=== PATIENT | female | born 1950 | race Caucasian/White ===

== ENCOUNTER 2020-09-20 10:01 | Outpatient (REF) | payer MEDICARE, SELFPAY ==
--- NOTE | ~2020-09-20 | CT_ITS ---
EXAMINATION: CT CHEST WITHOUT CONTRAST CLINICAL INFORMATION: Follow-up pulmonary nodules COMPARISON: Previous chest CT scans most recent August 2019 TECHNIQUE: Multidetector volumetric CT imaging of the chest was done. Axial MIP volume rendering provided. Sagittal and coronal reformatted images were obtained. This CT examination was performed using dose optimization techniques as appropriate, variously including the following: *Automated exposure control *Adjustment of mA and/or kV according to patient size (this includes techniques or standardized protocols for targeted exams where dose is matched to indication/reason for exam; i.e. extremities or head) *Use of iterative reconstruction technique DLP: 136 mGy-cm FINDINGS: UNSTACKER: LUNGS: The small pulmonary nodules are stable. No new pulmonary nodule is seen. The largest pulmonary nodule measures 4 mm in the right middle lobe. MEDIASTINUM: There is mild coronary artery calcification. The thoracic aorta is tortuous. The mediastinum is otherwise normal. PLEURA: There is no pleural effusion. No pleural mass or thickening. AXILLA: No lymphadenopathy. UPPER ABDOMEN: The left kidney is atrophic. OSSEOUS STRUCTURES: There is scoliosis and degenerative change of the spine. CT/CT chest wo con IMPRESSION: Stable small pulmonary nodules.
== END 2020-09-20 10:02 | disposition home or self-care (01) ==
LOC: HO.CT 10:01
PROVIDERS: Visit Provider Internal Medicine Medical Oncology
DX: R91.8 Other nonspecific abnormal finding of lung field (principal)
CPT/HCPCS: 71250

== ENCOUNTER 2020-10-05 09:36 | Outpatient (REF) | payer MEDICARE, SELFPAY ==
[2020-10-05 11:07] LABS: Anion Gap 10 (12-20); Blood Urea Nitrogen 24 mg/dL (9-16); Calcium 9.3 mg/dL (8.4-10.2); Carbon Dioxide 29 mmol/L (22-29); Chloride 104 mmol/L (96-108); Estimated Glomerular Filt Rate 38; Potassium 3.5 mmol/L (3.3-5.1); Sodium 139 mmol/L (135-145)
[2020-10-05 13:36] LABS: Renal w Reflex Lab Use Only Order verified
[2020-10-05 13:45] LABS: Phosphorus 4.3 mg/dL (2.7-4.5)
== END 2020-10-05 09:37 | disposition home or self-care (01) ==
LOC: HO.10HDL 09:36
PROVIDERS: Visit Provider Internal Medicine Nephrology
DX: I12.9 Hypertensive chronic kidney disease with stage 1 through stage 4 chronic kidney disease, or unspecified chronic kidney disease (principal); N18.30 Chronic kidney disease, stage 3 unspecified
CPT/HCPCS: 36415; 80051; 82310; 82565; 84100; 84520

== ENCOUNTER 2021-05-07 12:46 | Outpatient (REF) | payer MEDICARE, SELFPAY ==
--- NOTE | ~2021-05-07 | CT_ITS ---
EXAMINATION: CT CHEST WITHOUT CONTRAST CLINICAL INFORMATION: Follow-up pulmonary nodules. History of right upper arm melanoma. COMPARISON: Previous chest CT scans most recent September 2020 going back to November 2018 TECHNIQUE: Multidetector volumetric CT imaging of the chest was done. Axial MIP volume rendering provided. Sagittal and coronal reformatted images were obtained. This CT examination was performed using dose optimization techniques as appropriate, variously including the following: *Automated exposure control *Adjustment of mA and/or kV according to patient size (this includes techniques or standardized protocols for targeted exams where dose is matched to indication/reason for exam; i.e. extremities or head) *Use of iterative reconstruction technique DLP: 137 mGy-cm FINDINGS: LUNGS: The small pulmonary nodules are stable. Largest pulmonary nodule measures 5 mm in the right middle lobe axial image 316 series 9. No new pulmonary nodule is seen. MEDIASTINUM: The thoracic aorta is tortuous. There is mild coronary artery calcification. The mediastinum is otherwise normal. PLEURA: There is no pleural effusion. No pleural mass or thickening. AXILLA: No lymphadenopathy. UPPER ABDOMEN: The left kidney appears atrophic. There is a small calcification in the upper pole of the left kidney probably representing a stone. There may be a small gallstone in the gallbladder. OSSEOUS STRUCTURES: There is mild curvature of the upper thoracic spine to the left. There are degenerative changes of the spine. CT/CT chest wo con IMPRESSION: Stable small pulmonary nodules.
== END 2021-05-07 12:47 | disposition home or self-care (01) ==
LOC: HO.CT 12:46
PROVIDERS: Visit Provider Internal Medicine Medical Oncology
DX: R91.8 Other nonspecific abnormal finding of lung field (principal)
CPT/HCPCS: 71250

== ENCOUNTER 2021-05-16 10:35 | Outpatient (REF) | payer MEDICARE, SELFPAY ==
[2021-05-16 14:08] LABS: Hemoglobin 12.9 g/dl (12.0-16.0); Mean Corpuscular HGB Conc 33.9 g/dl (31.0-35.0); Mean Corpuscular Hemoglobin 28.7 pg (27.0-33.0); Mean Corpuscular Volume 84.4 fL (80-98); Mean Platelet Volume 10.1 fL (9.4-12.3); Platelet Count 184 X10*3/uL (160-400); Red Cell Distribution Width 12.2 % (11.0-16.0); White Blood Count 6.6 X10*3/uL (4.8-10.8)
[2021-05-16 14:35] LABS: Anion Gap 12 (12-20); Blood Urea Nitrogen 23 mg/dL (9-16); Calcium 9.6 mg/dL (8.4-10.2); Carbon Dioxide 27 mmol/L (22-29); Chloride 104 mmol/L (96-108); Estimated Glomerular Filt Rate 31; Potassium 3.8 mmol/L (3.3-5.1); Sodium 139 mmol/L (135-145)
[2021-05-17 16:01] LABS: Calcium (PTHI) 9.9 mg/dL (8.6-10.4); PTHI 29 pg/mL (14-64)
== END 2021-05-16 10:36 | disposition home or self-care (01) ==
LOC: HO.10HDL 10:35
PROVIDERS: Visit Provider Internal Medicine Nephrology
DX: N18.31 Chronic kidney disease, stage 3a (principal)
CPT/HCPCS: 36415; 80051; 82310; 82565; 83970; 84520; 85027

== ENCOUNTER 2021-06-04 16:10 | Outpatient (REF) | payer MEDICARE, SELFPAY ==
--- NOTE | ~2021-06-04 | US_ITS ---
EXAMINATION: US RETROPERITONEAL LIMITED (RENAL ONLY) CLINICAL INFORMATION: CKD stage III. COMPARISON: MRI abdomen 12/16/2018. TECHNIQUE: Real-time imaging of the kidneys. FINDINGS: RIGHT KIDNEY: 10.8 x 4.8 x 5.4 cm (SAG x AP x TRV). The kidney is normal in size, contour, and echogenicity. Renal cortical thickness is normal. No focal parenchymal lesions or hydronephrosis. There is echogenic stone upper midpole measuring 0.5 x 0.4 x 0.8 seen. No caliectasis or hydronephrosis. LEFT KIDNEY: 7.2 x 4.3 x 3.6 cm (SAG x AP x TRV). The kidney is decreased in size and contour. Likely atrophy. Renal cortical thickness is normal. No calculi or focal parenchymal lesions. No hydronephrosis. US/US renal BI IMPRESSION: Mildly atrophic left kidney with decreased size. Small echogenic stone upper/mid pole right kidney without caliectasis or hydronephrosis.
== END 2021-06-04 16:11 | disposition home or self-care (01) ==
LOC: HO.US 16:10
PROVIDERS: PCP Internal Medicine; Visit Provider Internal Medicine Nephrology
DX: N18.31 Chronic kidney disease, stage 3a (principal)
CPT/HCPCS: 76775

== ENCOUNTER 2022-03-03 13:55 | Outpatient (REF) | payer MEDICARE, SELFPAY | END 2022-03-03 13:56 | disposition home or self-care (01) | LOC: HO.LNP 13:55 | PROVIDERS: Visit Provider Nurse Practitioner Family | DX: N39.41 Urge incontinence (principal) | CPT/HCPCS: 87086 ==

== ENCOUNTER 2022-06-04 02:20 | Inpatient (IN) | payer MEDICARE, SELFPAY ==
[2022-06-04] VITALS (10 sets, daily range): BP systolic 130–180; BP diastolic 77–102; PULSE 73–115; RESP 11–20; TEMP 36.7–38.2; O2SAT 95–100; BMI 24.0
--- NOTE | 2022-06-04 | ECG_ITS ---
Test Reason : fall Blood Pressure : / mmHG Vent. Rate : 133 BPM Atrial Rate : 000 BPM P-R Int : 000 ms QRS Dur : 078 ms QT Int : 168 ms P-R-T Axes : 000 005 -88 degrees QTc Int : 250 ms Atrial fibrillation with rapid ventricular response Nonspecific ST and T wave abnormality Abnormal ECG When compared with ECG of 13-FEB-2010 07:33, Atrial fibrillation has replaced Sinus rhythm Vent. rate has increased BY 77 BPM Non-specific change in ST segment in Inferior leads Nonspecific T wave abnormality now evident in Anterolateral leads Referred By: Generic ED Physician Electronically Signed By:PATRICK BROWN MD
--- NOTE | ~2022-06-04 | FL_ITS ---
EXAMINATION: FL guidance in OR INDICATION: Reason for Exam fracture right hip COMPARISON: Radiographs of the hip 06/04/2022 TECHNIQUE: Multiple fluoroscopic OR images were provided. FLUOROSCOPY TIME: 1.2 minutes DOSE AREA PRODUCT: 0.581 mGy-m2 FINDINGS: Intraoperative fluoroscopy was obtained. No radiologist was in attendance. Please refer to operative report for complete evaluation. ORIF of a right hip fracture. FL/FL guidance in OR IMPRESSION: Intraoperative fluoroscopy was obtained. No radiologist was in attendance. Please refer to operative report for complete evaluation.
--- NOTE | ~2022-06-04 | MR_ITS ---
MRI OF THE BRAIN WITH AND WITHOUT IV CONTRAST INDICATION: Mass. COMPARISON: Head CT 06/04/2022. TECHNIQUE: Multiplanar multisequence MR imaging of the brain is obtained without and following the administration of 4 mL of Gadavist intravenous contrast without complication. FINDINGS: Redemonstration of a large expansile sellar/suprasellar mass exhibiting intraventricular extension into the third ventricle and the anterior aspect of the left lateral ventricle. The lesion measures up to 8 cm CC by 4.6 cm TV by 5.4 cm AP. The lesion invades the right cavernous sinus and encases the right cavernous ICA segment. The lesion exhibits multiple signal signal levels and has enhancing solid and nonenhancing cystic components with the largest cystic component expanding the left lateral ventricular body and deforming the adjacent left frontal lobe. There is enlargement of the left lateral ventricle which is entrapped by the lesion. The mass results in significant splaying of the suprasellar cistern and the proximal vessels of the entire [place] was which exhibit preserved flow voids. There is no extra-axial surface collection. The major flow voids at the skull base are preserved. There is no acute infarct on diffusion-weighted imaging. There is no intracranial hemorrhage on the gradient recalled echo acquisition. The cerebellar tonsils are normally positioned. The cerebellum and brainstem are normal. The craniocervical junction is normal. Osseous marrow signal intensity is homogenous. The visualized soft tissues are unremarkable. There is enlargement of the left lateral ventricle which is entrapped by the lesion. MR/MR head/brain wo/w con IMPRESSION: - Redemonstration of a large up to 8 cm expansile sellar/suprasellar mass exhibiting intraventricular extension into the third ventricle and the anterior aspect of the left lateral ventricle as well as invasion of the right cavernous sinus and encasement of the right cavernous internal carotid artery which remains patent. The lesion exhibits multiple signal signal levels and has enhancing solid and nonenhancing cystic components with the largest cystic component expanding the left lateral ventricular body and deforming the adjacent left frontal lobe. There is significant enlargement of the left lateral ventricle which is entrapped by the lesion. Erosion of the sellar floor, erosion of the basisphenoid of the clivus, and probable dehiscence of the posterior sphenoid sinus boyer bilaterally is better demonstrated on the corresponding CT study. Major differential considerations include a giant craniopharyngioma versus an invasive giant pituitary macroadenoma. Neurosurgical consultation advised. - The mass results in significant splaying of the suprasellar cistern and the proximal vessels of the entire [place] was which exhibit preserved flow voids.
--- NOTE | ~2022-06-04 | CT_ITS ---
EXAMINATION: CT CHEST WITHOUT CONTRAST CT ABDOMEN AND PELVIS WITHOUT CONTRAST CLINICAL INFORMATION: Reason for Exam fall, pain . COMPARISON: 05/07/2021 and 12/01/2018.. TECHNIQUE: Multidetector volumetric imaging was performed from the thoracic inlet through the pubic symphysis without intravenous contrast. Sagittal and coronal images were reformatted. This CT examination was performed using dose optimization techniques as appropriate, variously including the following: *Automated exposure control *Adjustment of mA and/or kV according to patient size (this includes techniques or standardized protocols for targeted exams where dose is matched to indication/reason for exam; i.e. extremities or head) *Use of iterative reconstruction technique DOSE: 315 mGy-cm FINDINGS: -CHEST- LUNG: Again seen are multiple small pulmonary nodules, the largest of which measures 5 mm in diameter in the right middle lobe on image 310 of series 6, unchanged. A flat 4 mm nodule is again seen in the lateral aspect of the right middle lobe on image 247. Multiple small nodules measuring 2 mm or less are evident at the right lung apex. No consolidation, pneumothorax, or pleural effusion. Central airways are clear. No bronchiectasis. MEDIASTINUM: Calcific atherosclerosis is present in the coronary arteries. Heart is normal in size. No pericardial effusion. Thoracic aorta is normal in caliber with minimal calcific atherosclerosis. Thyroid gland is unremarkable. PERICARDIUM/PLEURA: No significant effusion. No pleural mass or thickening. No pneumothorax. CHEST WALL/AXILLA: Unremarkable. Mild degenerative spondylosis in the thoracic spine. -ABDOMEN/PELVIS- LIVER, GALLBLADDER, BILIARY TREE: The liver is normal in size, shape, and attenuation. No focal hepatic lesion or biliary ductal dilatation is present. The gallbladder is unremarkable with no evidence of radiopaque gallstones, gallbladder wall thickening, or obvious pericholecystic inflammatory changes. PANCREAS: Normal; no mass or surrounding fluid. SPLEEN: Normal size. No focal lesion. ADRENAL GLANDS: Normal; no mass. KIDNEYS AND URETERS: Marked atrophy of the left kidney is again noted. Multiple right renal calculi are noted, the largest of which is a curvilinear 8 mm calculus within a lower pole calyx. Smaller parenchymal calcifications are evident in the upper pole interpolar region. No obstructing calculi. No focal renal lesions. Right ureter is normal in course and caliber. BLADDER: Unremarkable. GASTROINTESTINAL TRACT: Stomach, small bowel, and colon are normal in caliber. No bowel wall thickening or surrounding inflammatory changes. Appendix is normal. No intraperitoneal free fluid or free air. ABDOMINAL WALL: No significant hernia is appreciated. VASCULATURE: Atherosclerotic calcifications are present in the abdominal aorta and iliac arteries. No aneurysmal dilatation. LYMPH NODES: No adenopathy.. PELVIC VISCERA: The uterus and adnexa are unremarkable. OSSEUS STRUCTURES: There is a markedly comminuted and displaced fracture of the right proximal femur with both intertrochanteric and subtrochanteric components. The shaft is displaced proximally, anteriorly, and medially with approximately 8 cm of foreshortening. There is surrounding fat stranding. No large hematomas are identified on these images. No additional acute fractures are identified. Bones are osteopenic. There is multilevel degenerative spondylosis in the thoracolumbar spine with mild sigmoid scoliosis. CT/CT abdomen pelvis wo IV con IMPRESSION: 1. Markedly comminuted and displaced fracture of the right proximal femur with both intertrochanteric and subtrochanteric components. 2. No additional acute traumatic injuries are identified in the chest, abdomen, and pelvis. 3. Multiple small pulmonary nodules, unchanged from prior dating back to 2019. No additional follow-up is necessary per Fleischner criteria. 4. Right nephrolithiasis without evidence of obstructive uropathy. Marked left renal atrophy.
--- NOTE | ~2022-06-04 | XR_ITS ---
EXAMINATION: XR HIP, RIGHT CLINICAL INFORMATION: Fracture COMPARISON: No prior studies available. TECHNIQUE: Frontal, lateral, right hip, AP pelvis. FINDINGS: There is displaced angulated right femoral fracture just distal to the trochanters. There is also nondisplaced fracture of the greater trochanter. Adjacent acetabulum and pubic rami are intact. Left hip is normal. Surrounding soft tissues otherwise unremarkable. XR/XR hip RT w [id number] IMPRESSION: Multiple fractures of the right femur, displaced fracture of the femoral proximal diaphysis, and nondisplaced trochanteric fracture.
--- NOTE | ~2022-06-04 | CT_ITS ---
EXAMINATION: HEAD CT WITHOUT CONTRAST CERVICAL SPINE CT WITHOUT CONTRAST CLINICAL INFORMATION: Pain. Fall. Altered mental status. COMPARISON: None. TECHNIQUE: Contiguous axial imaging of the head was performed without the administration of IV contrast. Axial multidetector volumetric images were also performed through the cervical spine without intravenous contrast. Multiplanar reconstructed images in coronal and sagittal orientations were submitted. This CT examination was performed using dose optimization techniques as appropriate, variously including the following: *Automated exposure control *Adjustment of mA and/or kV according to patient size (this includes techniques or standardized protocols for targeted exams where dose is matched to indication/reason for exam; i.e. extremities or head) *Use of iterative reconstruction technique DOSE: 2514 mGy-cm FINDINGS: HEAD: There is a large expansile heterogeneously hyperdense mass arising from the sella turcica and protruding cephalad through the third ventricle and into the left lateral ventricle, distorting the corpus callosum and surrounding structures. This mass measures 5.2 x 4.8 x 6.2 cm and contains internal calcifications and cystic foci. There is erosion of the surrounding bone at the margins of the sella. There is no evidence of acute intracranial hemorrhage or territorial infarction. No midline shift. No extra-axial fluid collections. Schulz to white matter differentiation is well preserved. There is relative enlargement of the lateral ventricles, left greater than right, potentially due to a component of obstructive hydrocephalus produced by the mass. There is associated effacement of the cortical sulci. The soft tissues and osseous structures are normal. The sinuses and mastoid air cells are clear. CERVICAL SPINE: Vertebral body heights are normal. No fractures of the vertebral bodies or posterior elements. Vertebral alignment is normal. No subluxation. Degenerative changes are present at the craniocervical and atlantoaxial articulations, though normal alignment is maintained. Moderate multilevel degenerative disc disease is characterized by loss of vertebral disc height with endplate osteophytes, uncovertebral osteophytes, endplate sclerosis, and cystic changes. There is ankylosis of the facet joints on the left at C3-C4. Additional moderate multilevel facet arthropathy is evident in the cervical spine. Posterior disc osteophyte complex at and C5-C6 and C6-C7 producing [id number] central canal narrowing. Facet osteophytes and uncovertebral osteophytes produce multilevel neural foraminal encroachment, most notably on the left at C5-C6 and C6-C7 and on the right from C3-C4 through C6-C7. No significant paravertebral soft tissue swelling. Cervical soft tissues are unremarkable. Imaged portions of the lung apices are clear. CT/CT cervical spine wo IV con IMPRESSION: 1. 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 Recommend further evaluation with an MRI with and without contrast. 2. No acute traumatic intracranial abnormalities. 3. No acute fracture or malalignment in the cervical spine. 4. Multilevel degenerative spondylosis in the cervical spine with multilevel neural foraminal encroachment.
--- NOTE | 2022-06-04 03:05 | ED_ITS ---
HPI - General Adult General Chief complaint: Fall Stated complaint: fall rt hip pain Time Seen by Provider: 06/04/22 02:55 Source: patient and EMS Mode of arrival: EMS Limitations: other (Possible dementia) History of Present Illness HPI narrative: Patient comes to emergency room via EMS from home. Seems that patient was trying to get out of bed, sit out of bed and landed on the right side of her hip. Patient is in too much pain to give any significant history, she is alert and oriented x3. EMS past the message that dementia is suspected. However, patient has not been seen by a primary care physician in several years. However, patient had lab work the last time on 05/16/2021. Patient states that she did not hit her head or lost consciousness. Not on blood thinners. Patient has no past medical history according to her and the family. However, reviewing patient's records patient has been seen by Nephrology for chronic kidney, hypertension, malignant melanoma. Patient complaining of severe right-sided hip pain. Patient's is at bedside. He states that the patient has gradually been declining for about one year. Patient's had pancreatic cancer, was hospitalized in [place] for a month, then went to rehab. When he returned home, he noticed that his has significant behavioral changes, including flat affect, since then, for about a year, they have not been able to have normal conversations due to the patient's mental decline. Also, the patient's noticed that approximately a week to week and half ago, the patient started walking around, dragging her right leg, and holding her right arm in a flexed/claw like fashion. Related Data Home Medications Medication Instructions Recorded Confirmed cholecalciferol (vitamin D3) 1,250 1,250 mcg PO QWEEK 09/03/20 04/04/21 mcg (50,000 unit) capsule Previous Rx's Medication Instructions Recorded clobetasol 0.05 % topical ointment 1 appl topical DAILY #60 grams 05/06/21 nitrofurantoin 100 mg PO Q12H 5 days #10 caps 03/03/22 monohydrate/macrocrystals 100 mg capsule Allergies Allergy/AdvReac Type Severity Reaction Status Date / Time No Known Allergies Allergy Verified 03/03/22 11:39 [No Known Allergies*] Review of Systems Review of Systems: Constitutional : No Weight loss, No Fever, No Chills, No Night Sweats, No Fatigue, No Malaise ENT/Mouth : No Hearing loss, No Ear Pain, No Nasal Congestion, No Sinus Pain, No Hoarseness, No sore throat, No Rhinorrhea, No Swallowing Difficulty Eyes: No Eye Pain, No Swelling, No Redness, No Foreign Body, No Discharge, No Vision Changes Cardiovascular : No Chest Pain, No SOB, No Dyspnea on Exertion, No Orthopnea, No Edema, No Palpitations Respiratory : No Cough, No Sputum, No Wheezing, No Smoke Exposure, No Dyspnea Gastrointestinal : No Nausea, No Vomiting, No Diarrhea, No Constipation, No abdominal Pain, No Hematochezia, No Melena Genitourinary : no irregular bleeding, No Dysuria, No Urinary Frequency, No Hematuria, No Urinary Incontinence, No Urgency, No Flank Pain, No Urinary Flow Changes, No Hesitancy Musculoskeletal : Complaining of right-sided hip pain, No Myalgias, No Joint Swelling Skin : No Skin Lesions, No rash Neuro : No Weakness, No Numbness, No Paresthesias, No Loss of Consciousness, No Dizziness, No Headache Psych : No Anxiety/Panic, No Depression, No SI/HI/AH/VH, No Social Issues, Heme/Lymph: No Bruising, No Bleeding,No Lymphadenopathy Endocrine : No Polyuria, No Polydipsia, No Temperature Intolerance PMFSH Past Medical History Medical History Annual physical exam CKD (chronic kidney disease), stage III (~09/03/20) Colonoscopy refused Constipation Eczema History of tobacco abuse HTN (hypertension) Mammogram declined Melanoma Vitamin D deficiency Surgical History Hx of breast surgery Family History Family History Father HTN (hypertension) Cancer of prostate Mother HTN (hypertension) Son No problems noted. Daughter No problems noted. Social History Social History Alcohol intake: never Advance Directives: Yes Advance Directives on File: Yes Advance Directives Date on File: 02/07/21 Physical Exam ED Vital Signs: Vital Signs - 24 hr 06/04/22 02:30 06/04/22 02:49 06/04/22 03:24 Temperature 98.6 F 100.7 F H Pulse Rate 115 H Respiratory Rate 20 20 Blood Pressure 180/102 H Pulse Oximetry 99 Oxygen Delivery Method Room Air 06/04/22 04:02 06/04/22 06:26 06/04/22 06:27 Temperature 98.6 F Pulse Rate 84 85 Respiratory Rate 14 18 Blood Pressure 170/93 H 150/88 H Pulse Oximetry 98 95 Oxygen Delivery Method Room Air Room Air BMI result Body Mass Index 24.0 Const Other: Appearance: Alert. Oriented X3. In pain Eyes: Pupils equal, round and reactive to light. ENT: Pharynx normal. Neck: Normal inspection. Neck supple. No lymph nodes noted. No crepitus CVS: Irregularly irregular heart rate, tachycardic in the 130s, Normal S1 and S2 Respiratory: No respiratory distress. Breath sounds normal. No Wheezing. No rales Abdomen: Soft and nontender. No rigidity. No distention. Skin: Skin warm and dry. Normal skin color. Normal skin turgor. Extremities: No lower extremity edema, patient's knees flex, proximal right leg is externally rotated, patient unable to move due to pain Neuro: Oriented X 3. No motor deficit. No sensory deficit. Moving all extremities. No slurred speech. CN 2 through 12 grossly intact Psych: calm, cooperative, Course Course Course Narrative: Patient's EKG shows atrial fibrillation, heart rate 133. Patient does not have history of atrial fibrillation. This is new for the patient. All the patient's labs and imaging pending. Patient's heart rate improved to 88 without any significant intervention. This is a new diagnosis for the patient. I discussed the CT scan results with the patient's . Unfortunately, patient has very large mass in the brain and a significant right hip fracture. At this time, patient's is considering to make the patient comfort measures only but he is not 100% and ready to do so. After discussing several approaches to treatment versus COLLAR CUTTER, patient's decided that it would be best if we do an MRI 1st, get a better idea of the type and magnitude to and prognosis of the tumor. Once he has the results, he will decide whether he wants to proceed with hip surgery versus no surgery at all and making the patient COLLAR CUTTER. Patient made clear that he does not want his to go through chemotherapy if it cause for it. MRI with and without contrast has been ordered. Patient seems to be comfortable with 4 mg of morphine that was given to her. Patient given for piggy bags of potassium for hypokalemia, Cr at baseline TSH is slightly elevated, free T4 within normal limits I discussed the above-mentioned with Dr. Zepeda, dispo pending, code status pending Medications Administered Discontinued Medications Generic Name Dose Route Start Last Admin Trade Name Marysol PRN Reason Stop Dose Admin Acetaminophen 975 mg 06/04/22 03:10 06/04/22 03:24 Acetaminophen 325 Mg Tablet PO 06/04/22 03:11 975 mg ONCE ONE Administration Sodium Chloride 2,000 mls @ 999 mls/hr 06/04/22 02:59 06/04/22 03:23 Ns IVCONT 06/04/22 04:59 999 mls/hr .Q2H1M ONE Administration Morphine Sulfate 4 mg 06/04/22 03:04 06/04/22 03:24 Morphine Sulfate 4 Mg/Ml Cartridge IVPUSH 06/04/22 03:05 4 mg ONCE ONE Administration Protocol Medical Decision Making Lab Data Result diagrams: 06/04/22 03:13 06/04/22 03:13 Labs: Lab Results 06/04/22 06/04/22 06/04/22 Range/Units 03:13 03:13 03:13 WBC 15.2 H (4.8-10.8) X10*3/uL RBC 4.38 (4.20-5.50) X10*6/uL Hgb 12.2 (12.0-16.0) g/dl Hct 35.7 L (37.0-47.0) % MCV 81.5 (80.0-98.0) fL MCH 27.9 (27.0-33.0) pg MCHC 34.2 (31.0-35.0) g/dl RDW 11.8 (11.0-16.0) % Plt Count 223 (160-400) X10*3/uL MPV 9.1 L (9.4-12.3) fL Immature Gran % (Auto) 2.4 H (0.0-0.4) % Neut % (Auto) 50.8 (45-73) % Lymph % (Auto) 11.3 L (20-40) % [place] % (Auto) 35.3 H (2-11) % Eos % (Auto) 0.1 (0-4) % Baso % (Auto) 0.1 (0-2) % Lymph # (Auto) 1.7 (1.2-4.9) X10*3/uL [place] # (Auto) 5.4 H (0.1-1.2) X10*3/uL Eos # (Auto) 0.0 (0.0-0.4) X10*3/uL Baso # (Auto) 0.0 (0.0-0.2) X10*3/uL Abs Immat Gran (auto) 0.37 H (0.00-0.03) X10*3/uL Absolute Neuts (auto) 7.7 (2.0-8.3) x10*3/uL Absolute Nucleated RBC 0.000 (0.0-0.012) X10*3/uL Nucleated RBC % (auto) 0.0 (0.0-0.2) /100WBC Smear Tech's Comments VERIFIED PT (10.0-13.1) SEC INR (0.9-1.1) Sodium 135 (135-145) mmol/L Potassium 2.8 L D (3.3-5.1) mmol/L Chloride 101 (96-108) mmol/L Carbon Dioxide 20 L (22-29) mmol/L Anion Gap 17 (12-20) BUN 15 (9-16) mg/dL Creatinine 1.65 H (0.5-1.4) mg/dL Estim Creat Clear Calc 30.3 Estimated GFR 31 Random Glucose 170 H (60-115) mg/dL Lactic Acid (0.5-2.0) mmol/L Calcium 8.8 D (8.4-10.2) mg/dL Magnesium 1.6 (1.6-2.6) mg/dL Total Bilirubin 0.7 (0.0-1.0) mg/dL Direct Bilirubin 0.3 (0.0-0.5) mg/dL AST 25 (5-31) U/L ALT 14 (0-31) U/L Alkaline Phosphatase 89 (39-117) U/L Ammonia (13-55) umol/L Total Creatine Kinase 252 H (26-140) U/L Troponin I High Sens 3.6 (<3.5-17.0) ng/L B-Natriuretic Peptide (<100) pg/mL Total Protein 7.2 (6.5-8.0) g/dL Albumin 3.9 (3.5-5.0) g/dL TSH 5.58 H (0.32-4.0) uIU/mL Free T4 0.84 (0.71-1.85) ng/dL Urine Color Urine Appearance Urine pH (5.0-9.0) Ur Specific [place] (1.005-1.025) Urine Protein (Neg-Trace) mg/dL Urine Glucose (UA) (Negative) mg/dL Urine Ketones (Negative) mg/dL Urine Blood (Negative) Urine Nitrite (Negative) Ur Leukocyte Esterase (Negative) Urine RBC (0-2) /HPF Urine WBC (0-5) /HPF Ur Squamous Epith Cells (0-2) /HPF Urine Bacteria (None Seen) Hyaline Casts (0-2) /LPF Granular Casts Urine Opiates Screen (Not Detect) Urine Fentanyl Screen (Not Detect) Ur Barbiturates Screen (Not Detect) Ur Phencyclidine Scrn (Not Detect) Ur Amphetamines Screen (Not Detect) U Benzodiazepines Scrn (Not Detect) Urine Cocaine Screen (Not Detect) U Marijuana (THC) Screen (Not Detect) Ethyl Alcohol < 10 mg/dL COVID-19 (PREST[facility]) (Negative) COVID-19 Clin Com 06/04/22 06/04/22 06/04/22 Range/Units 03:13 03:13 03:51 WBC (4.8-10.8) X10*3/uL RBC (4.20-5.50) X10*6/uL Hgb (12.0-16.0) g/dl Hct (37.0-47.0) % MCV (80.0-98.0) fL MCH (27.0-33.0) pg MCHC (31.0-35.0) g/dl RDW (11.0-16.0) % Plt Count (160-400) X10*3/uL MPV (9.4-12.3) fL Immature Gran % (Auto) (0.0-0.4) % Neut % (Auto) (45-73) % Lymph % (Auto) (20-40) % [place] % (Auto) (2-11) % Eos % (Auto) (0-4) % Baso % (Auto) (0-2) % Lymph # (Auto) (1.2-4.9) X10*3/uL [place] # (Auto) (0.1-1.2) X10*3/uL Eos # (Auto) (0.0-0.4) X10*3/uL Baso # (Auto) (0.0-0.2) X10*3/uL Abs Immat Gran (auto) (0.00-0.03) X10*3/uL Absolute Neuts (auto) (2.0-8.3) x10*3/uL Absolute Nucleated RBC (0.0-0.012) X10*3/uL Nucleated RBC % (auto) (0.0-0.2) /100WBC Smear Tech's Comments PT 13.1 (10.0-13.1) SEC INR 1.1 (0.9-1.1) Sodium (135-145) mmol/L Potassium (3.3-5.1) mmol/L Chloride (96-108) mmol/L Carbon Dioxide (22-29) mmol/L Anion Gap (12-20) BUN (9-16) mg/dL Creatinine (0.5-1.4) mg/dL Estim Creat Clear Calc Estimated GFR Random Glucose (60-115) mg/dL Lactic Acid (0.5-2.0) mmol/L Calcium (8.4-10.2) mg/dL Magnesium (1.6-2.6) mg/dL Total Bilirubin (0.0-1.0) mg/dL Direct Bilirubin (0.0-0.5) mg/dL AST (5-31) U/L ALT (0-31) U/L Alkaline Phosphatase (39-117) U/L Ammonia 16 (13-55) umol/L Total Creatine Kinase (26-140) U/L Troponin I High Sens (<3.5-17.0) ng/L B-Natriuretic Peptide 96 (<100) pg/mL Total Protein (6.5-8.0) g/dL Albumin (3.5-5.0) g/dL TSH (0.32-4.0) uIU/mL Free T4 (0.71-1.85) ng/dL Urine Color Urine Appearance Urine pH (5.0-9.0) Ur Specific [place] (1.005-1.025) Urine Protein (Neg-Trace) mg/dL Urine Glucose (UA) (Negative) mg/dL Urine Ketones (Negative) mg/dL Urine Blood (Negative) Urine Nitrite (Negative) Ur Leukocyte Esterase (Negative) Urine RBC (0-2) /HPF Urine WBC (0-5) /HPF Ur Squamous Epith Cells (0-2) /HPF Urine Bacteria (None Seen) Hyaline Casts (0-2) /LPF Granular Casts Urine Opiates Screen (Not Detect) Urine Fentanyl Screen (Not Detect) Ur Barbiturates Screen (Not Detect) Ur Phencyclidine Scrn (Not Detect) Ur Amphetamines Screen (Not Detect) U Benzodiazepines Scrn (Not Detect) Urine Cocaine Screen (Not Detect) U Marijuana (THC) Screen (Not Detect) Ethyl Alcohol mg/dL COVID-19 ([facility]) (Negative) COVID-19 Clin Com 06/04/22 06/04/22 06/04/22 Range/Units 03:51 03:57 04:21 WBC (4.8-10.8) X10*3/uL RBC (4.20-5.50) X10*6/uL Hgb (12.0-16.0) g/dl Hct (37.0-47.0) % MCV (80.0-98.0) fL MCH (27.0-33.0) pg MCHC (31.0-35.0) g/dl RDW (11.0-16.0) % Plt Count (160-400) X10*3/uL MPV (9.4-12.3) fL Immature Gran % (Auto) (0.0-0.4) % Neut % (Auto) (45-73) % Lymph % (Auto) (20-40) % [place] % (Auto) (2-11) % Eos % (Auto) (0-4) % Baso % (Auto) (0-2) % Lymph # (Auto) (1.2-4.9) X10*3/uL [place] # (Auto) (0.1-1.2) X10*3/uL Eos # (Auto) (0.0-0.4) X10*3/uL Baso # (Auto) (0.0-0.2) X10*3/uL Abs Immat Gran (auto) (0.00-0.03) X10*3/uL Absolute Neuts (auto) (2.0-8.3) x10*3/uL Absolute Nucleated RBC (0.0-0.012) X10*3/uL Nucleated RBC % (auto) (0.0-0.2) /100WBC Smear Tech's Comments PT (10.0-13.1) SEC INR (0.9-1.1) Sodium (135-145) mmol/L Potassium (3.3-5.1) mmol/L Chloride (96-108) mmol/L Carbon Dioxide (22-29) mmol/L Anion Gap (12-20) BUN (9-16) mg/dL Creatinine (0.5-1.4) mg/dL Estim Creat Clear Calc Estimated GFR Random Glucose (60-115) mg/dL Lactic Acid 1.8 (0.5-2.0) mmol/L Calcium (8.4-10.2) mg/dL Magnesium (1.6-2.6) mg/dL Total Bilirubin (0.0-1.0) mg/dL Direct Bilirubin (0.0-0.5) mg/dL AST (5-31) U/L ALT (0-31) U/L Alkaline Phosphatase (39-117) U/L Ammonia (13-55) umol/L Total Creatine Kinase (26-140) U/L Troponin I High Sens (<3.5-17.0) ng/L B-Natriuretic Peptide (<100) pg/mL Total Protein (6.5-8.0) g/dL Albumin (3.5-5.0) g/dL TSH (0.32-4.0) uIU/mL Free T4 (0.71-1.85) ng/dL Urine Color Urine Appearance Urine pH (5.0-9.0) Ur Specific [place] (1.005-1.025) Urine Protein (Neg-Trace) mg/dL Urine Glucose (UA) (Negative) mg/dL Urine Ketones (Negative) mg/dL Urine Blood (Negative) Urine Nitrite (Negative) Ur Leukocyte Esterase (Negative) Urine RBC (0-2) /HPF Urine WBC (0-5) /HPF Ur Squamous Epith Cells (0-2) /HPF Urine Bacteria (None Seen) Hyaline Casts (0-2) /LPF Granular Casts Urine Opiates Screen POSITIVE H (Not Detect) Urine Fentanyl Screen Not Detected (Not Detect) Ur Barbiturates Screen Not Detected (Not Detect) Ur Phencyclidine Scrn Not Detected (Not Detect) Ur Amphetamines Screen Not Detected (Not Detect) U Benzodiazepines Scrn Not Detected (Not Detect) Urine Cocaine Screen Not Detected (Not Detect) U Marijuana (THC) Screen Not Detected (Not Detect) Ethyl Alcohol mg/dL COVID-19 (PRESTON) Negative (Negative) COVID-19 Clin Com See Note 06/04/22 Range/Units 04:22 WBC (4.8-10.8) X10*3/uL RBC (4.20-5.50) X10*6/uL Hgb (12.0-16.0) g/dl Hct (37.0-47.0) % MCV (80.0-98.0) fL MCH (27.0-33.0) pg MCHC (31.0-35.0) g/dl RDW (11.0-16.0) % Plt Count (160-400) X10*3/uL MPV (9.4-12.3) fL Immature Gran % (Auto) (0.0-0.4) % Neut % (Auto) (45-73) % Lymph % (Auto) (20-40) % [place] % (Auto) (2-11) % Eos % (Auto) (0-4) % Baso % (Auto) (0-2) % Lymph # (Auto) (1.2-4.9) X10*3/uL [place] # (Auto) (0.1-1.2) X10*3/uL Eos # (Auto) (0.0-0.4) X10*3/uL Baso # (Auto) (0.0-0.2) X10*3/uL Abs Immat Gran (auto) (0.00-0.03) X10*3/uL Absolute Neuts (auto) (2.0-8.3) x10*3/uL Absolute Nucleated RBC (0.0-0.012) X10*3/uL Nucleated RBC % (auto) (0.0-0.2) /100WBC Smear Tech's Comments PT (10.0-13.1) SEC INR (0.9-1.1) Sodium (135-145) mmol/L Potassium (3.3-5.1) mmol/L Chloride (96-108) mmol/L Carbon Dioxide (22-29) mmol/L Anion Gap (12-20) BUN (9-16) mg/dL Creatinine (0.5-1.4) mg/dL Estim Creat Clear Calc Estimated GFR Random Glucose (60-115) mg/dL Lactic Acid (0.5-2.0) mmol/L Calcium (8.4-10.2) mg/dL Magnesium (1.6-2.6) mg/dL Total Bilirubin (0.0-1.0) mg/dL Direct Bilirubin (0.0-0.5) mg/dL AST (5-31) U/L ALT (0-31) U/L Alkaline Phosphatase (39-117) U/L Ammonia (13-55) umol/L Total Creatine Kinase (26-140) U/L Troponin I High Sens (<3.5-17.0) ng/L B-Natriuretic Peptide (<100) pg/mL Total Protein (6.5-8.0) g/dL Albumin (3.5-5.0) g/dL TSH (0.32-4.0) uIU/mL Free T4 (0.71-1.85) ng/dL Urine Color Yellow Urine Appearance Clear Urine pH 5.5 (5.0-9.0) Ur Specific [place] 1.015 (1.005-1.025) Urine Protein 100 (2+) H (Neg-Trace) mg/dL Urine Glucose (UA) Negative (Negative) mg/dL Urine Ketones Negative (Negative) mg/dL Urine Blood Large (3+) H (Negative) Urine Nitrite Negative (Negative) Ur Leukocyte Esterase Negative (Negative) Urine RBC >20 H (0-2) /HPF Urine WBC 0-5 (0-5) /HPF Ur Squamous Epith Cells 0-2 (0-2) /HPF Urine Bacteria None Seen (None Seen) Hyaline Casts 3-5 (0-2) /LPF Granular Casts Present Urine Opiates Screen (Not Detect) Urine Fentanyl Screen (Not Detect) Ur Barbiturates Screen (Not Detect) Ur Phencyclidine Scrn (Not Detect) Ur Amphetamines Screen (Not Detect) U Benzodiazepines Scrn (Not Detect) Urine Cocaine Screen (Not Detect) U Marijuana (THC) Screen (Not Detect) Ethyl Alcohol mg/dL COVID-19 ([facility]) (Negative) COVID-19 Clin Com Critical Care Time Critical Care Time Critical Care Time: Yes Total Critical Care Time: 75 Attestation: I have personally provided critical care time. Time includes review of lab data, radiology results, discussion with consultants, and monitoring for potential decompensation. Intervention performed as documented. Discharge Plan Discharge Clinical Impression: Brain mass, Hip fracture, Atrial fibrillation, new onset, Acute hypokalemia Prescriptions: No Action clobetasol 0.05 % ointment 1 appl topical DAILY Qty: 60 3RF cholecalciferol (vitamin D3) 1,250 mcg (50,000 unit) capsule 1,250 mcg PO QWEEK nitrofurantoin monohyd/m-cryst 100 mg capsule 100 mg PO Q12H 5 Days Qty: 10 0RF Rx Instructions: must administer with a meal/food
[2022-06-04] MEDS: 0.9 % Sodium Chloride 2,000 ML 999 ML IVCONT (03:23)
[2022-06-04] MEDS: Acetaminophen 325 MG TABLET 975 MG PO (03:24)
[2022-06-04] MEDS: Morphine Sulfate 4 MG/ML CARTRIDGE IVPUSH ×3 (03:24→15:37)
[2022-06-04 03:45] LABS: Basophils Percent Auto 0.1 % (0-2); Eosinophils Percent Auto 0.1 % (0-4); Hematocrit 35.7 % (37.0-47.0); Hemoglobin 12.2 g/dl (12.0-16.0); Imm Gran Abs Auto 0.37 X10*3/uL (0.00-0.03); Imm Gran Pct Auto 2.4 % (0.0-0.4); Lymphocytes Absolute Auto 1.7 X10*3/uL (1.2-4.9); Lymphocytes Percent Auto 11.3 % (20-40); MANUAL DIFF FLAG SCAN; Mean Corpuscular HGB Conc 34.2 g/dl (31.0-35.0); Mean Corpuscular Hemoglobin 27.9 pg (27.0-33.0); Mean Corpuscular Volume 81.5 fL (80.0-98.0); Mean Platelet Volume 9.1 fL (9.4-12.3); Monocytes Absolute Auto 5.4 X10*3/uL (0.1-1.2); Monocytes Percent Auto 35.3 % (2-11); Neutrophils Absolute Auto 7.7 x10*3/uL (2.0-8.3); Neutrophils Percent Auto 50.8 % (45-73); Platelet Count 223 X10*3/uL (160-400); Red Blood Count 4.38 X10*6/uL (4.20-5.50); Red Cell Distribution Width 11.8 % (11.0-16.0); SCAN SMEAR FLAG 1; White Blood Count 15.2 X10*3/uL (4.8-10.8)
[2022-06-04 03:53] LABS: Troponin-I High Sensitivity 3.6 ng/L (<3.5-17.0)
[2022-06-04 04:01] LABS: Alanine Aminotransferase 14 U/L (0-31); Albumin Level 3.9 g/dL (3.5-5.0); Alkaline Phosphatase 89 U/L (39-117); Anion Gap 17 (12-20); Aspartate Amino Transferase 25 U/L (5-31); Bilirubin Direct 0.3 mg/dL (0.0-0.5); Bilirubin Total 0.7 mg/dL (0.0-1.0); Blood Urea Nitrogen 15 mg/dL (9-16); Calcium 8.8 mg/dL (8.4-10.2); Carbon Dioxide 20 mmol/L (22-29); Chloride 101 mmol/L (96-108); Creatinine Clr Calc Pharmacy 30.3; Estimated Glomerular Filt Rate 31; Glucose Random 170 mg/dL (60-115); Magnesium 1.6 mg/dL (1.6-2.6); Potassium 2.8 mmol/L (3.3-5.1); Sodium 135 mmol/L (135-145); Total Protein 7.2 g/dL (6.5-8.0)
[2022-06-04 04:04] LABS: Ethanol < 10 mg/dL
[2022-06-04 04:05] LABS: SLIDE REVIEW VERIFIED
[2022-06-04 04:13] LABS: B Type Natriuretic Peptide 96 pg/mL (<100)
[2022-06-04 04:22] LABS: INTERNATIONAL NORM RATIO 1.1 (0.9-1.1); Prothrombin Time 13.1 SEC (10.0-13.1)
[2022-06-04 04:23] LABS: Ammonia 16 umol/L (13-55)
[2022-06-04 04:27] LABS: Lactic Acid 1.8 mmol/L (0.5-2.0)
[2022-06-04 04:29] LABS: Appearance Urine Clear; Color Urine Yellow; Glucose Urine UA Negative (Negative); Leukocyte Esterase Urine Negative (Negative); Nitrite Urine Negative (Negative); PH 5.5 (5.0-9.0); Specific Gravity - Urine 1.015 (1.005-1.025); UMIC TRIGGER UACC YES; Urine Blood Large (3+) (Negative); Urine Ketones Negative (Negative); Urine Protein 100 (2+) mg/dL (Neg-Trace)
[2022-06-04 04:31] LABS: COVID-19 Test Negative (Negative)
[2022-06-04 04:40] LABS: Amphetamine Screen Urine Not Detected (Not Detect); Barbiturates, Urine Not Detected (Not Detect); Benzodiazepines Screen Urine Not Detected (Not Detect); Cannabinoid Screen Urine Not Detected (Not Detect); Cocaine Screen Urine Not Detected (Not Detect); Fentanyl, urine Not Detected (Not Detect); Opiate Screen Urine POSITIVE (Not Detect); Phencyclidine Screen Urine Not Detected (Not Detect)
[2022-06-04 04:41] LABS: Bacteria Urine None Seen (None Seen); Granular Casts Urine Present; RBC Urine >20 /HPF (0-2); Squamous Epithelial Cell Urine 0-2 /HPF (0-2); WBC Urine 0-5 /HPF (0-5)
[2022-06-04 05:01] LABS: Free T4 (Free Thyroxine) 0.84 ng/dL (0.71-1.85); TSH reflex Free T4 5.58 uIU/mL (0.32-4.0)
[2022-06-04] MEDS: Potassium Chloride/H20 10 MEQ/100 ML PIGGYBACK 100 MEQ IV ×4 (07:03→12:07)
[2022-06-04] MEDS: ondansetron HCL 4 MG/2 ML VIAL IVPUSH (08:55)
--- NOTE | 2022-06-04 09:12 | PC.NURSE ---
Pt vomited mod amt of green liquid. Med for pain/nausea. AT BEDSIDE, PT AND AWARE OF PLAN. Pt alert and oriented x 4. SKIN PALE, WARM AND DRY.
--- NOTE | 2022-06-04 12:46 | PC.NURSE ---
Hobson inserted by this RN and tech. IV potassium hung per the SEP.
--- NOTE | 2022-06-04 12:46 | PC.NURSE ---
At MRI at this time
--- NOTE | 2022-06-04 14:42 | PC.NURSE ---
CALL PLACED TO [facility] PT TX LINE @ REQUEST OF DR CHU FOR THIS PT @ THIS TIME
--- NOTE | 2022-06-04 15:06 | P.CONOP_ITS ---
History of Present Illness HPI Consult date: 06/04/22 Chief complaint: fall rt hip pain Narrative: Ms. Arroyo is a 71 year old female who presented to the emergency room after sustaining a fall this morning. History was obtained by James who is at bedside. The patient was trying to get out of bed and fell landing on the right side of her hip. Patient was transported to the Ed by EMS who also suggested that the patient has dementia. Not on blood thinners. Lives at home with her . Ambulates without a walker. Patient has a medical history significant for stage III kidney disease, HTN, malignant melanoma, brain tumor. her stated to the ED provider that the patient has gradually been declining for about one year.? Patient's had pancreatic cancer, was hospitalized in [place] for a month, then went to rehab.? When he returned home, he noticed that his has significant behavioral changes, including flat affect, since then, for about a year, they have not been able to have normal conversations due to the patient's mental decline.? Also, the patient's noticed that approximately a week to week? and half ago, the patient started? walking around, dragging her right leg, and holding her right arm in a flexed/claw like fashion. Review of Systems Review of Systems: Yes all other systems are reviewed and are negative PMFSH Past Medical History Medical History Annual physical exam CKD (chronic kidney disease), stage III (~09/03/20) Colonoscopy refused Constipation Eczema History of tobacco abuse HTN (hypertension) Mammogram declined Melanoma Vitamin D deficiency Family History Family History Father HTN (hypertension) Cancer of prostate Mother HTN (hypertension) Son No problems noted. Daughter No problems noted. Surgical History Surgical History Hx of breast surgery Social History Social History Alcohol intake: never Advance Directives: Yes Advance Directives on File: Yes Advance Directives Date on File: 02/07/21 Meds Allergies Allergy/AdvReac Type Severity Reaction Status Date / Time No Known Allergies Allergy Verified 03/03/22 11:39 [No Known Allergies*] Home Medications Medication Instructions Recorded Confirmed Last Taken Type cholecalciferol (vitamin D3) 1,250 1,250 mcg PO QWEEK 09/03/20 04/04/21 Unknown History mcg (50,000 unit) capsule Physical Exam Vital Signs: Vital Signs: Last Vital Signs Temp 98.6 F 06/04/22 14:00 Pulse 92 06/04/22 14:00 Resp 11 L 06/04/22 14:00 BP 134/85 06/04/22 14:00 Pulse Ox 96 06/04/22 14:00 O2 Del Method 06/04/22 14:00 BMI result Body Mass Index 24.0 Const: General: cooperative, healthy appearing and no acute distress Resp: Effort & Inspection: normal respiratory effort and able to speak in complete sentences Cardio: Rate: regular rate Peripheral pulses: Peripheral pulses 2+ throughout GI: Palpation (GI): Soft to palpation Skin: Lesions: no lesions Rashes: no rashes Extrem: Other: Right lower extremity skin is intact. Patient is laying in bed with legs raquel- crossed. Pedal pulse intact. Results Labs Result Diagrams: 06/04/22 03:13 06/04/22 03:13 Labs: Abnormal lab results 06/04/22 06/04/22 06/04/22 Range/Units 03:13 03:13 04:21 WBC 15.2 H (4.8-10.8) X10*3/uL Hct 35.7 L (37.0-47.0) % MPV 9.1 L (9.4-12.3) fL Immature Gran % (Auto) 2.4 H (0.0-0.4) % Lymph % (Auto) 11.3 L (20-40) % [place] % (Auto) 35.3 H (2-11) % [place] # (Auto) 5.4 H (0.1-1.2) X10*3/uL Abs Immat Gran (auto) 0.37 H (0.00-0.03) X10*3/uL Potassium 2.8 L D (3.3-5.1) mmol/L Carbon Dioxide 20 L (22-29) mmol/L Creatinine 1.65 H (0.5-1.4) mg/dL Random Glucose 170 H (60-115) mg/dL Total Creatine Kinase 252 H (26-140) U/L TSH 5.58 H (0.32-4.0) uIU/mL Urine Protein (Neg-Trace) mg/dL Urine Blood (Negative) Urine RBC (0-2) /HPF Urine Opiates Screen POSITIVE H (Not Detect) 06/04/22 Range/Units 04:22 WBC (4.8-10.8) X10*3/uL Hct (37.0-47.0) % MPV (9.4-12.3) fL Immature Gran % (Auto) (0.0-0.4) % Lymph % (Auto) (20-40) % [place] % (Auto) (2-11) % [place] # (Auto) (0.1-1.2) X10*3/uL Abs Immat Gran (auto) (0.00-0.03) X10*3/uL Potassium (3.3-5.1) mmol/L Carbon Dioxide (22-29) mmol/L Creatinine (0.5-1.4) mg/dL Random Glucose (60-115) mg/dL Total Creatine Kinase (26-140) U/L TSH (0.32-4.0) uIU/mL Urine Protein 100 (2+) H (Neg-Trace) mg/dL Urine Blood Large (3+) H (Negative) Urine RBC >20 H (0-2) /HPF Urine Opiates Screen (Not Detect) H & H 06/04/22 Range/Units 03:13 Hgb 12.2 (12.0-16.0) g/dl Hct 35.7 L (37.0-47.0) % Coagulation 06/04/22 Range/Units 03:51 INR 1.1 (0.9-1.1) All other labs normal. Assessment and Plan (1) Hip fracture: Status: Acute I discussed the case with Dr. Carey and explained the extent of the injury to the patient's James and options available which include surgical intervention. I explained the procedure in detail along with the length of recovery and rehab course. I explained the risk, benefits and alternatives. Risk including, but not limited to infection, blood clots, bleeding, non union or malunion and nerve/tissue damage to surrounding areas. I answered all their questions and with their understanding they have consented to move forward with Operative Fixation of the right hip. The patient will be T&S, med clearance obtained and NPO after midnight. James signs the patients consents. He can be reached at [phone] (2) Brain mass: Status: Acute (3) Atrial fibrillation, new onset: Status: Acute (4) Acute hypokalemia: Status: Acute (5) CKD (chronic kidney disease), stage III: Status: Acute (6) Malignant melanoma: Status: Acute (7) HTN (hypertension): Status: Acute Procedures Date of Service Date of Service: 06/04/22
--- NOTE | 2022-06-04 17:31 | PM.IMHP ---
History of Present Illness Date of Service: 06/04/22 Chief Complaint: Fall, hip fracture A 71 years old lady with PMH of CKD stage 3, HTN, malignant melanoma among others who presents to the hospital after sustaining a fall at home. She was unable to provide meaningful history of information are taken from , medical records. According to him she was trying to get out of the bed when she slipped and fell on her right hip and she could not stand up. EMS was called and brought her to the hospital. reported that for the last month he was away and noticed significant difference in his when he came back as she became more altered, confused, flat affect and noticed mental decline. He believed that these things started almost 1 year ago but became more noticeable over the last month or so as she became unsteady on her feet. In the emergency S CT scan, MRI of the head were concerning for large brain mass. Hip x-ray showed hip fracture as the right side. Discussed with orthopedic team who are considering surgical intervention. Admitted for further evaluation and treatment. Review of Systems Review of Systems: Yes Unobtainable due to mental status [facility] Medical History Annual physical exam CKD (chronic kidney disease), stage III (~09/03/20) Colonoscopy refused Constipation Eczema History of tobacco abuse HTN (hypertension) Mammogram declined Melanoma Vitamin D deficiency Family History Father HTN (hypertension) Cancer of prostate Mother HTN (hypertension) Son No problems noted. Daughter No problems noted. Surgical History Hx of breast surgery Social History Alcohol intake: never Advance Directives: Yes Advance Directives on File: Yes Advance Directives Date on File: 02/07/21 Meds Allergies Allergy/AdvReac Type Severity Reaction Status Date / Time No Known Allergies Allergy Verified 03/03/22 11:39 [No Known Allergies*] Active Medications: Current Medications Acetaminophen (Acetaminophen 325 Mg Tablet) 650 mg PO Q6H PRN PRN Reason: Pain, Mild (Pain Scale 1-3) Dexamethasone Sodium Phosphate (Dexamethasone Sod Phosphate 4 Mg/Ml Vial) 4 mg IVPUSH Q6H [facility] Dextrose/Sodium Chloride (D5ns) 1,000 mls @ 80 mls/hr IVCONT .[id number] [facility] Morphine Sulfate (Morphine Sulfate 4 Mg/Ml Cartridge) 4 mg IVPUSH Q4H PRN; Protocol PRN Reason: Pain, Severe (Pain Scale 7-10) Ondansetron HCl (Ondansetron Hcl 4 Mg/2 Ml Vial) 4 mg IVPUSH Q8H PRN PRN Reason: Nausea and Vomiting Pharmacy Consult (Consult Rx Perform Med Rec) 1 each MISCELLANE ONCE PRN PRN Reason: Consult order Sodium Chloride (0.9 % Sodium Chloride Flush 3 Ml Syringe) 3 ml IVFLUSH QSHIFT [facility] Home Medications Medication Instructions Recorded Confirmed Last Taken Type cholecalciferol (vitamin D3) 1,250 1,250 mcg PO QWEEK 09/03/20 04/04/21 Unknown History mcg (50,000 unit) capsule Physical Exam Vital Signs and Narrative: Vital Signs: Last Vital Signs Temp 98.6 F 06/04/22 14:00 Pulse 92 06/04/22 14:00 Resp 11 L 06/04/22 14:00 BP 134/85 06/04/22 14:00 Pulse Ox 96 06/04/22 14:00 O2 Del Method 06/04/22 14:00 BMI result Body Mass Index 24.0 Const: Other: Constitutional : Awake with stimulation, not in distress Neck : Normal inspection, Supple Cardiovascular : RRR, no JVP, no lower extremity edema Respiratory : good bilateral air entry, no crackles, wheezes or rhonchi Gastrointestinal: soft, lax, Normal bowel sounds, Non tender Skin : Warm, Dry Musculoskeletal: Right leg exterior rotated and shorter than left leg Neurological : Alert with stimulation, disoriented and not following much of commands Results Labs CBC and Chem 7: 06/04/22 03:13 06/04/22 03:13 Labs: Laboratory Results - last 24 hr 06/04/22 06/04/22 06/04/22 03:13 03:13 03:13 MCV 81.5 MCH 27.9 MCHC 34.2 RDW 11.8 Plt Count 223 MPV 9.1 L Immature Gran % (Auto) 2.4 H Neut % (Auto) 50.8 Lymph % (Auto) 11.3 L Gilchrist % (Auto) 35.3 H Eos % (Auto) 0.1 Baso % (Auto) 0.1 Lymph # (Auto) 1.7 Gilchrist # (Auto) 5.4 H Eos # (Auto) 0.0 Baso # (Auto) 0.0 Abs Immat Gran (auto) 0.37 H Absolute Neuts (auto) 7.7 Absolute Nucleated RBC 0.000 Nucleated RBC % (auto) 0.0 Smear Tech's Comments VERIFIED PT INR Anion Gap 17 Estim Creat Clear Calc 30.3 Estimated GFR 31 Random Glucose 170 H Lactic Acid Calcium 8.8 D Magnesium 1.6 Total Bilirubin 0.7 Direct Bilirubin 0.3 AST 25 ALT 14 Alkaline Phosphatase 89 Ammonia Total Creatine Kinase 252 H Troponin I High Sens 3.6 B-Natriuretic Peptide Total Protein 7.2 Albumin 3.9 TSH 5.58 H Free T4 0.84 Urine Color Urine Appearance Urine pH Ur Specific [place] Urine Protein Urine Glucose (UA) Urine Ketones Urine Blood Urine Nitrite Ur Leukocyte Esterase Urine RBC Urine WBC Ur Squamous Epith Cells Urine Bacteria Hyaline Casts Granular Casts Urine Opiates Screen Urine Fentanyl Screen Ur Barbiturates Screen Ur Phencyclidine Scrn Ur Amphetamines Screen U Benzodiazepines Scrn Urine Cocaine Screen U Marijuana (THC) Screen Ethyl Alcohol < 10 COVID-19 ([facility]) COVID-19 Clin Com 06/04/22 06/04/22 06/04/22 03:13 03:13 03:51 MCV MCH MCHC RDW Plt Count MPV Immature Gran % (Auto) Neut % (Auto) Lymph % (Auto) Gilchrist % (Auto) Eos % (Auto) Baso % (Auto) Lymph # (Auto) Gilchrist # (Auto) Eos # (Auto) Baso # (Auto) Abs Immat Gran (auto) Absolute Neuts (auto) Absolute Nucleated RBC Nucleated RBC % (auto) Smear Tech's Comments PT 13.1 INR 1.1 Anion Gap Estim Creat Clear Calc Estimated GFR Random Glucose Lactic Acid Calcium Magnesium Total Bilirubin Direct Bilirubin AST ALT Alkaline Phosphatase Ammonia 16 Total Creatine Kinase Troponin I High Sens B-Natriuretic Peptide 96 Total Protein Albumin TSH Free T4 Urine Color Urine Appearance Urine pH Ur Specific [place] Urine Protein Urine Glucose (UA) Urine Ketones Urine Blood Urine Nitrite Ur Leukocyte Esterase Urine RBC Urine WBC Ur Squamous Epith Cells Urine Bacteria Hyaline Casts Granular Casts Urine Opiates Screen Urine Fentanyl Screen Ur Barbiturates Screen Ur Phencyclidine Scrn Ur Amphetamines Screen U Benzodiazepines Scrn Urine Cocaine Screen U Marijuana (THC) Screen Ethyl Alcohol COVID-19 ([facility]) COVID-19 Clin Com 06/04/22 06/04/22 06/04/22 03:51 03:57 04:21 MCV MCH MCHC RDW Plt Count MPV Immature Gran % (Auto) Neut % (Auto) Lymph % (Auto) Gilchrist % (Auto) Eos % (Auto) Baso % (Auto) Lymph # (Auto) Gilchrist # (Auto) Eos # (Auto) Baso # (Auto) Abs Immat Gran (auto) Absolute Neuts (auto) Absolute Nucleated RBC Nucleated RBC % (auto) Smear Tech's Comments PT INR Anion Gap Estim Creat Clear Calc Estimated GFR Random Glucose Lactic Acid 1.8 Calcium Magnesium Total Bilirubin Direct Bilirubin AST ALT Alkaline Phosphatase Ammonia Total Creatine Kinase Troponin I High Sens B-Natriuretic Peptide Total Protein Albumin TSH Free T4 Urine Color Urine Appearance Urine pH Ur Specific [place] Urine Protein Urine Glucose (UA) Urine Ketones Urine Blood Urine Nitrite Ur Leukocyte Esterase Urine RBC Urine WBC Ur Squamous Epith Cells Urine Bacteria Hyaline Casts Granular Casts Urine Opiates Screen POSITIVE H Urine Fentanyl Screen Not Detected Ur Barbiturates Screen Not Detected Ur Phencyclidine Scrn Not Detected Ur Amphetamines Screen Not Detected U Benzodiazepines Scrn Not Detected Urine Cocaine Screen Not Detected U Marijuana (THC) Screen Not Detected Ethyl Alcohol COVID-19 ([facility]) Negative COVID-19 Clin Com See Note 06/04/22 04:22 MCV MCH MCHC RDW Plt Count MPV Immature Gran % (Auto) Neut % (Auto) Lymph % (Auto) Gilchrist % (Auto) Eos % (Auto) Baso % (Auto) Lymph # (Auto) Gilchrist # (Auto) Eos # (Auto) Baso # (Auto) Abs Immat Gran (auto) Absolute Neuts (auto) Absolute Nucleated RBC Nucleated RBC % (auto) Smear Tech's Comments PT INR Anion Gap Estim Creat Clear Calc Estimated GFR Random Glucose Lactic Acid Calcium Magnesium Total Bilirubin Direct Bilirubin AST ALT Alkaline Phosphatase Ammonia Total Creatine Kinase Troponin I High Sens B-Natriuretic Peptide Total Protein Albumin TSH Free T4 Urine Color Yellow Urine Appearance Clear Urine pH 5.5 Ur Specific [place] 1.015 Urine Protein 100 (2+) H Urine Glucose (UA) Negative Urine Ketones Negative Urine Blood Large (3+) H Urine Nitrite Negative Ur Leukocyte Esterase Negative Urine RBC >20 H Urine WBC 0-5 Ur Squamous Epith Cells 0-2 Urine Bacteria None Seen Hyaline Casts 3-5 Granular Casts Present Urine Opiates Screen Urine Fentanyl Screen Ur Barbiturates Screen Ur Phencyclidine Scrn Ur Amphetamines Screen U Benzodiazepines Scrn Urine Cocaine Screen U Marijuana (THC) Screen Ethyl Alcohol COVID-19 ([facility]) COVID-19 Clin Com Imaging Radiologist's Impressions: Impressions Abdomen/Pelvis CT 06/04/22 03:45 IMPRESSION: 1. Markedly comminuted and displaced fracture of the right proximal femur with both intertrochanteric and subtrochanteric components. 2. No additional acute traumatic injuries are identified in the chest, abdomen, and pelvis. 3. Multiple small pulmonary nodules, unchanged from prior dating back to 2019. No additional follow-up is necessary per Fleischner criteria. 4. Right nephrolithiasis without evidence of obstructive uropathy. Marked left renal atrophy. Cervical Spine CT 06/04/22 03:45 IMPRESSION: 1. 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 Recommend further evaluation with an MRI with and without contrast. 2. No acute traumatic intracranial abnormalities. 3. No acute fracture or malalignment in the cervical spine. 4. Multilevel degenerative spondylosis in the cervical spine with multilevel neural foraminal encroachment. Head CT 06/04/22 03:45 IMPRESSION: 1. 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 Recommend further evaluation with an MRI with and without contrast. 2. No acute traumatic intracranial abnormalities. 3. No acute fracture or malalignment in the cervical spine. 4. Multilevel degenerative spondylosis in the cervical spine with multilevel neural foraminal encroachment. Chest CT 06/04/22 03:55 IMPRESSION: 1. Markedly comminuted and displaced fracture of the right proximal femur with both intertrochanteric and subtrochanteric components. 2. No additional acute traumatic injuries are identified in the chest, abdomen, and pelvis. 3. Multiple small pulmonary nodules, unchanged from prior dating back to 2019. No additional follow-up is necessary per Fleischner criteria. 4. Right nephrolithiasis without evidence of obstructive uropathy. Marked left renal atrophy. Brain MRI 06/04/22 13:10 IMPRESSION: - Redemonstration of a large up to 8 cm expansile sellar/suprasellar mass exhibiting intraventricular extension into the third ventricle and the anterior aspect of the left lateral ventricle as well as invasion of the right cavernous sinus and encasement of the right cavernous internal carotid artery which remains patent. The lesion exhibits multiple signal signal levels and has enhancing solid and nonenhancing cystic components with the largest cystic component expanding the left lateral ventricular body and deforming the adjacent left frontal lobe. There is significant enlargement of the left lateral ventricle which is entrapped by the lesion. Erosion of the sellar floor, erosion of the basisphenoid of the clivus, and probable dehiscence of the posterior sphenoid sinus boyer bilaterally is better demonstrated on the corresponding CT study. Major differential considerations include a giant craniopharyngioma versus an invasive giant pituitary macroadenoma. Neurosurgical consultation advised. - The mass results in significant splaying of the suprasellar cistern and the proximal vessels of the entire [place] which exhibit preserved flow voids. Hip/Pelvis X-Ray 06/04/22 15:33 IMPRESSION: Multiple fractures of the right femur, displaced fracture of the femoral proximal diaphysis, and nondisplaced trochanteric fracture. Assessment and Plan (1) Brain mass: Status: Acute (2) Hip fracture: Status: Acute (3) Atrial fibrillation, new onset: Status: Acute (4) Acute hypokalemia: Status: Acute Plan A 71 years old lady with PMH of CKD stage 3, HTN, malignant melanoma among others who presents to the hospital after sustaining a fall at home. Hip fracture, right Secondary to mechanical fall Orthopedic team involved, plan for surgical intervention after discussing with Anesthesia for the best anesthesia approach Preop eval No ACS, non emergency surgery, RCRI score of 1 Patient carries mild-moderate preop cardiac risk Still carrying a risk secondary to the brain mass, further evaluation needed by anesthesia team Brain mass MRI reporting large up to 8 cm expansile mass with invasion of right cavernous sinus and other malignant features Start dexamethasone repair oncology team recommendations Oncology team evaluation Neurosurgery did not answer the calls from ED, to retry gain but seems unoperable mass New onset AFib with RVR Rate is better controlled now Hold on anticoagulation Get echo Start small dose metoprolol to keep it under control Hypokalemia Replacement given Follow BMP DVT PPX SCDs The patient will need 2. Overnight inpatient hospital stay for correction of right hip fracture and evaluation of brain mass pending safe discharge plan. Quality Stroke Does the patient have a stroke diagnosis?: No VTE Prior VTE?: No VTE Risk Level:: Medical - moderate - high VTE Device Contraindication: Treatment Not Indicated VTE Drug Contraindication: N/A - Med Ordered
--- NOTE | 2022-06-04 18:12 | PHA.MEDREC ---
Pharmacy Consult ? Medication Reconciliation Pharmacy has completed the medication reconciliation. Unable to confirm meds with patient, currently pt has no recent fill history. Called pt's spouse James Arroyo and left a message, awaiting call back
[2022-06-04] MEDS: dexAMETHasone sod phosphate 10 MG/ML VIAL IVPUSH (18:20)
[2022-06-04] MEDS: Dextrose 5 % and 0.9 % NaCl 1,000 ML 80 ML IVCONT (18:21)
[2022-06-04] MEDS: 0.9 % Sodium Chloride Flush 3 ML SYRINGE IVFLUSH (19:52)
[2022-06-04] MEDS: Metoprolol Tartrate 25 MG TABLET PO (21:26)
[2022-06-05] MEDS: dexAMETHasone sod phosphate 4 MG/ML VIAL IVPUSH ×4 (00:25→17:34)
[2022-06-05 03:25] VITALS: BP 146/74; PULSE 68; RESP 18; TEMP 36.6; O2SAT 97
[2022-06-05] MEDS: Morphine Sulfate 4 MG/ML CARTRIDGE IVPUSH ×3 (03:31→17:34)
[2022-06-05 06:41] LABS: Hematocrit 29.4 % (37.0-47.0); Hemoglobin 9.9 g/dl (12.0-16.0); Mean Corpuscular HGB Conc 33.7 g/dl (31.0-35.0); Mean Corpuscular Hemoglobin 28.3 pg (27.0-33.0); Mean Platelet Volume 9.7 fL (9.4-12.3); Platelet Count 173 X10*3/uL (160-400); Red Cell Distribution Width 12.2 % (11.0-16.0); White Blood Count 8.3 X10*3/uL (4.8-10.8)
--- NOTE | 2022-06-05 07:00 | CA_ITS ---
Transthoracic Echocardiogram Patient (Last, First, Middle): Lucero Arroyo K Gender: Female Date of : 1950 Age: 71 Procedure Date: 06/05/2022 Procedure Type: Transthoracic Echocardiogram Location: S3E Height: 170.18 cm Weight: 69.4 kg BSA: 1.80 m2 Heart Rate: 66 bpm BP: 146 / 74 mmHg Scratch Polisher: VIRI Aguilar MD: Tiago Mcgraw MD Diesel Dinkey Engineer: Les Gama MD Symptoms: New onset Afib Study Quality: Fair/Supine due to R hip fracture ECG Rhythm: Sinus Conclusions: - 1. Normal LV systolic function with pseudonormal filling pattern 2. Limited visualization of cardiac valves with normal cardiac valvular Doppler 3. Normal RV systolic pressure 4. No gross pericardial effusion Findings Procedure Information Contrast agent, definity, is being given per protocol without apparent complications. Left Ventricle Normal left ventricular size, thickness, and systolic function. The visually estimated ejection fraction is between 65-70%. Spectral Doppler is indicative of a pseudonormal filling pattern. Right Ventricle Mildly increased right ventricular cavity size. There is normal right ventricular systolic function. Atria The left atrium is normal in size. Interatrial shunt cannot be excluded. The right atrium is normal in size. Aortic Valve There is mild calcification of the aortic valve. There is no aortic valve stenosis. There is no aortic valve regurgitation. Mitral Valve The mitral valve was not well visualized. There is mild anterior mitral leaflet thickening. There is trace mitral valve regurgitation. There is no mitral valve stenosis. Pulmonic Valve The pulmonic valve was not well visualized. Tricuspid Valve Likely normal tricuspid valve structure and function. There is trace tricuspid valve regurgitation. The right ventricular systolic pressure is normal. The right ventricular systolic pressure is 22 mmHg. Normal right atrial pressure. There is no evidence of pulmonary hypertension. Great Vessels All visible segments of the aorta are normal in size. The pulmonary artery was not well visualized. Venous The inferior vena cava is normal in size and collapses greater than 50% with inspiration. Pericardium/Pleural There is no evidence of pericardial effusion. Prior Study Comparison No prior study available for comparison. Measurements 2D Linear Measurements IVSd: 0.88 0.6-0.9/0.6-1.0 cm LVIDd: 4.36 3.9-5.3/4.2-5.9 cm LVIDd Index: 2.42 2.4-3.2/2.2-3.1 cm/m2 LVIDs: 2.80 2.0-3.6 cm LVPWd: 0.59 0.7-1.1 cm LA Diam: 3.00 2.7-3.8/3.0-4.0 cm LAIDs Index: 1.67 1.5-2.3 cm/m2 LV Mass: 119.99 67-162/88-224 g LV Mass Index: 66.66 43-95/49-115 g/m2 LVOT Diam: 2.00 3.0+(-)1.3 cm 2D Systolic Function EF 4C: 66.50 >55% EF 2C: 72.70 >55% EF BiP: 69.70 >55% Mitral Valve MV Pk E: 0.74 MV PK A: 0.52 MV Decel Time: 194.00 E/A: 1.40 E'Lateral: 9.25 E'Medial: 6.74 E/E' Med: 10.90 E/E' Lat: 8.00 PHT: 57.00 MVA PHT: 3.86 Decel Anderson: 3.81 Aortic Valve AoV Pk Leonel: 1.15 AoV Mn Leonel: 0.80 AoV VTI: 0.23 AoV Pk Grad: 5.00 Aov Mn Grad: 3.00 MACIEJ Cont.VTI: 2.94 LVOT LVOT Pk Leonel: 0.98 LVOT Mn Leonel: 0.70 LVOT VTI: 0.22 LVOT Pk Grad: 4.00 LVOT Mn Grad: 2.00 LVOT Diam: 2.00 LVOT Area: 3.14 Diastolic Function MV Pk E: 0.74 MV Pk A: 0.52 E/A: 1.40 E'Medial: 6.74 E/E' Med: 10.90 E' Laterial: 9.25 E/E' Lat: 8.00 Right Ventricle TAPSE (mm): 18.90 TVS' Leonel: 10.10 Tricuspid Valve TR Pk Leonel: 2.17 TR Pk Grad: 19.00 RA Press: 3.00 RVSP: 22.00 Great Vessels Aorta Sinus of Valsalva: 3.30 2.0-3.5 cm Ao Asc: 3.40 2.1-3.4 cm Pulmonary Veins Pulm Vein S/D 0.90 Pulmonary Valve PV Pk Leonel: 0.94 Peak PV Grad: 4.00 Updated in Other Vendor System with Status of Final Les Gama MD electronically signed on 06/05/2022 11:05:35 AM with status of Final
[2022-06-05 07:48] VITALS: BP 120/65; PULSE 75; RESP 18; TEMP 36.4; O2SAT 97
--- NOTE | 2022-06-05 08:18 | PM.EVENT ---
Event Note Date of Service: 06/05/22 Event Note: Anesthesia consult placed. Per Medicine recommendation because the patient has a non operative brain tumor surgery should be performed under spinal if possible. Surgical or planning time pending the anesthesia evaluation.
[2022-06-05 08:32] LABS: Anion Gap 12 (12-20); Blood Urea Nitrogen 16 mg/dL (9-16); Calcium 7.8 mg/dL (8.4-10.2); Carbon Dioxide 22 mmol/L (22-29); Chloride 107 mmol/L (96-108); Creatinine Clr Calc Pharmacy 31.7; Estimated Glomerular Filt Rate 32; Glucose Random 155 mg/dL (60-115); Sodium 136 mmol/L (135-145)
[2022-06-05] MEDS: Dextrose 5 % and 0.9 % NaCl 1,000 ML 80 ML IVCONT ×2 (09:03→21:32)
[2022-06-05] MEDS: Metoprolol Tartrate 25 MG TABLET PO ×2 (09:03→21:31)
[2022-06-05 11:26] VITALS: BP 112/60; PULSE 64; RESP 18; TEMP 36.1; O2SAT 96
--- NOTE | 2022-06-05 11:29 | P.CDIC_ITS ---
CDI Concurrent Query Documentation Clarification: PHYSICIAN'S DOCUMENTATION REQUEST Date of Query: 06/05/22 1130 Patient Name: Lucero Arroyo Admit Date: 06/04/22 Dear Doctor, A review of the medical record indicates additional documentation may be needed. Please review below and update the documentation accordingly. Risk Factors/Clinical Indicators/Treatments ED: 06/04 - Patient is suspected of Dementia. AMS, confused over last year, significant behavioral changes, unable to provide meaningful history. If possible, please further clarify type of suspected Dementia and any associated manifestations: Suspected, possible, probable and specifics if known: Disease Type: * Dementia, vascular, senile, alzheimer's etc. * Unable to determine Associated Manifestations: mild, moderate or severe * Dementia with * Confusion * behavioral disturbances * No associated manifestations * Other ? please specify * Unable to determine Use of terms such as suspected, likely, concern for, or probable (associated with a specific diagnosis that is being evaluated, monitored, or treated as if it exists) are acceptable and can be coded in the inpatient setting, when documented at the time of discharge. Thank you, Neema Mccall [facility], CDIS Extension: [phone] Please use your independent medical judgment in providing your response. THIS QUERY IS PART OF THE PERMANENT MEDICAL RECORD Provider Response: Other Other Diagnosis: No reported dementia
--- NOTE | 2022-06-05 12:11 | MHC.CM.PN ---
Addendum entered by Catherine Jackson 06/05/22 13:35: ANOTHER MESSAGE LEFT FOR SPOUSE EXPLAINING MEDICARE RIGHTS, WHITE COPY CERTIFIED MAIL, YELLOW COPY TO CHART Original Note: PT UNABLE TO PARTICIPATE WITH ASSESSMENT. MESSAGE LEFT FOR FABIOLA TO RETURN CALL AT [phone]. WILL ADDRESS IMM AT THE TIME OF RETURN CALL. PER CHART REVIEW, PATIENT LIVES WITH SPOUSE IN A SINGLE FAMILY HOME. +HCP ON FILE. NO PCP HAS NOT SEEN ONE IN YEARS. CM WILL CONTINUE TO FOLLOW FOR DC NEEDS/PLAN.
--- NOTE | 2022-06-05 14:47 | HO.PM.IMPN ---
Subjective Subjective Date of Service: 06/05/22 Interval History: Seen and evaluated this morning More alert but overall confused and could not provide any meaningful history Complaining of pain in the right hip No reported other overnight events Review of Systems Review of Systems: Yes Unobtainable due to mental status Physical Exam Vital Signs: Vital Signs: Last Vital Signs Temp 96.9 F 06/05/22 11:26 Pulse 64 06/05/22 11:26 Resp 18 06/05/22 11:26 BP 112/60 06/05/22 11:26 Pulse Ox 96 06/05/22 11:26 O2 Del Method 06/05/22 11:26 BMI result Body Mass Index 24.0 Const: Other: Constitutional : Awake with stimulation, not in distress Neck : Normal inspection, Supple Cardiovascular : RRR, no JVP, no lower extremity edema Respiratory : good bilateral air entry, no crackles, wheezes or rhonchi Gastrointestinal: soft, lax, Normal bowel sounds, Non tender Skin : Warm, Dry Musculoskeletal: Right leg exterior rotated and shorter than left leg Neurological : Alert with stimulation, disoriented and not following much of commands Objective Data Active Medications Acetaminophen (Acetaminophen 325 Mg Tablet) 650 mg PO Q6H PRN PRN Reason: Pain, Mild (Pain Scale 1-3) Dexamethasone Sodium Phosphate (Dexamethasone Sod Phosphate 4 Mg/Ml Vial) 4 mg IVPUSH Q6H [facility] Last Admin: 06/05/22 13:30 Dose: 4 mg Documented By: MARINE Dextrose/Sodium Chloride (D5ns) 1,000 mls @ 80 mls/hr IVCONT .[id number] [facility] Last Admin: 06/05/22 09:03 Dose: 80 mls/hr Documented By: MARINE Metoprolol Tartrate (Metoprolol Tartrate 25 Mg Tablet) 25 mg PO BID [facility]; Protocol Last Admin: 06/05/22 09:03 Dose: 25 mg Documented By: MARINE Morphine Sulfate (Morphine Sulfate 4 Mg/Ml Cartridge) 4 mg IVPUSH Q4H PRN; Protocol PRN Reason: Pain, Severe (Pain Scale 7-10) Last Admin: 06/05/22 10:42 Dose: 4 mg Documented By: MARINE Ondansetron HCl (Ondansetron Hcl 4 Mg/2 Ml Vial) 4 mg IVPUSH Q8H PRN PRN Reason: Nausea and Vomiting Pharmacy Consult (Consult Rx Perform Med Rec) 1 each MISCELLANE ONCE PRN PRN Reason: Consult order Sodium Chloride (0.9 % Sodium Chloride Flush 3 Ml Syringe) 3 ml IVFLUSH QSHIFT [facility] Last Admin: 06/05/22 09:03 Dose: Not Given Documented By: MARINE Non-Admin Reason: IV Running Labs CBC & Chem 7: 06/05/22 05:34 06/05/22 05:34 Labs: Laboratory Results - last 24 hr 06/05/22 06/05/22 05:34 05:34 MCV 84.0 MCH 28.3 MCHC 33.7 RDW 12.2 Plt Count 173 MPV 9.7 Absolute Nucleated RBC 0.000 Nucleated RBC % (auto) 0.0 Anion Gap 12 Estim Creat Clear Calc 31.7 Estimated GFR 32 Random Glucose 155 H Calcium 7.8 L D Microbiology Microbiology Results: Microbiology 06/04/22 03:57 Blood Culture - Preliminary Blood - Venous No growth after 24 hours. 06/04/22 03:20 Blood Culture - Preliminary Blood - Venous No growth after 24 hours. Assessment and Plan (1) Brain mass: Status: Acute (2) Hip fracture: Status: Acute Plan A 71 years old lady with PMH of CKD stage 3, HTN, malignant melanoma among others who presents to the hospital after sustaining a fall at home. Hip fracture, right Secondary to mechanical fall Orthopedic team involved, plan for surgical intervention after discussing with Anesthesia for possible spinal anesthesia for tomorrow Keep NPO post midnight Morphine for pain management Brain mass MRI reporting large up to 8 cm expansile mass with invasion of right cavernous sinus and other malignant features Seems an operable, HCP leading to word comfort measures but once the hip fixed for quality of life Continue dexamethasone per oncology team recommendations Oncology team evaluation New onset AFib with RVR Rate controlled now Hold on anticoagulation with planned surgery Pending echo Continue small dose metoprolol to keep it under control Hypokalemia Replacement given Follow BMP DVT PPX SCDs The patient will need Overnight inpatient hospital stay for correction of right hip fracture and evaluation of brain mass pending safe discharge plan. Quality Stroke Does the patient have a stroke diagnosis?: No VTE Prior VTE?: No VTE Risk Level:: Medical - moderate - high VTE Device Contraindication: Treatment Not Indicated VTE Drug Contraindication: N/A - Med Ordered
--- NOTE | 2022-06-05 15:07 | PM.HEMONCCN ---
Subjective - Subjective Chief complaint: Consult for: Brain tumor. History of melanoma. Patient: new to practice Consult date: 06/05/22 Requesting Physician: Lucien. Primary Care Provider: Unknown Physician Medical Summary: DIAGNOSIS: LARGE BRAIN TUMOR. HPI - Consult Narrative Reason for consult: Consult for: 1. Brain tumor. 2. History of melanoma. Narrative: Lucero Arroyo is a 71 year old lady, who preseted yesterday with a hip fracture, S/P fall. She presented to the hospital after sustaining a fall at home. She was unable to provide meaningful history of information are taken from , medical records. According to him she was trying to get out of the bed when she slipped and fell on her right hip and she could not stand up. EMS was called and brought her to the hospital. reported that for the last month he was away and noticed significant difference in his when he came back as she became more altered, confused, flat affect and noticed mental decline. He believed that these things started almost 1 year ago but became more noticeable over the last month or so as she became unsteady on her feet. In the emergency S CT scan, MRI of the head were concerning for large brain mass. Hip x-ray showed hip fracture as the right side. Discussed with orthopedic team who are considering surgical intervention. Admitted for further evaluation and treatment. MRI of the brain: - Redemonstration of a large up to 8 cm expansile sellar/suprasellar mass exhibiting intraventricular extension into the third ventricle and the anterior aspect of the left lateral ventricle as well as invasion of the right cavernous sinus and encasement of the right cavernous internal carotid artery which remains patent. The lesion exhibits multiple signal signal levels and has enhancing solid and nonenhancing cystic components with the largest cystic component expanding the left lateral ventricular body and deforming the adjacent left frontal lobe. There is significant enlargement of the left lateral ventricle which is entrapped by the lesion. Erosion of the sellar floor, erosion of the basisphenoid of the clivus, and probable dehiscence of the posterior sphenoid sinus boyer bilaterally is better demonstrated on the corresponding CT study. Major differential considerations include a giant craniopharyngioma versus an invasive giant pituitary macroadenoma. Neurosurgical consultation advised. - The mass results in significant splaying of the suprasellar cistern and the proximal vessels of the entire ione of [place] was which exhibit preserved flow voids. Review of Systems Review of Systems: Yes Unobtainable due to mental status [facility] Medical History: CKD stage 3, HTN, malignant melanoma. Annual physical exam CKD (chronic kidney disease), stage III (~09/03/20) Colonoscopy refused Constipation Eczema History of tobacco abuse HTN (hypertension) Mammogram declined Melanoma Vitamin D deficiency Family History: Father HTN (hypertension) Cancer of prostate Mother HTN (hypertension) Oncology Screenings - ECOG Performance Status ECOG Performance Status: 2 [facility] Medical History: Medical History (Last Reviewed 06/04/22 @ 17:37 by Tiago Mcgraw MD) Annual physical exam CKD (chronic kidney disease), stage III Onset Date: ~09/03/20 Colonoscopy refused Constipation Eczema History of tobacco abuse HTN (hypertension) Mammogram declined Melanoma Vitamin D deficiency Functional capacity: bed bound Patient : No Family History: Family History (Last Reviewed 06/04/22 @ 17:37 by Tiago Mcgraw MD) Father HTN (hypertension) Cancer of prostate Mother HTN (hypertension) Son No problems noted. Daughter No problems noted. Surgical History: Surgical History (Last Reviewed 06/04/22 @ 17:37 by Tiago Mcgraw MD) Hx of breast surgery Social History: Social History (Last Reviewed 06/04/22 @ 17:37 by Tiago Mcgraw MD) Living Situation History: Household Members: Unknown / Unable to asses Housing: Unknown / Unable to asses Alcohol History: Unable to assess alcohol history related to: Unable to respond Tobacco History: Patient Tobacco Use Status: Former Tobacco user Years Smoked: 12 Advance Directives: Advance Directives Date on File: 02/07/21 Occupation Assessmet: service: No Current occupational status: retired Home Medications and Allergies Current Medications: Current Medications Acetaminophen (Acetaminophen 325 Mg Tablet) 650 mg PO Q6H PRN PRN Reason: Pain, Mild (Pain Scale 1-3) Dexamethasone Sodium Phosphate (Dexamethasone Sod Phosphate 4 Mg/Ml Vial) 4 mg IVPUSH Q6H [facility]S [facility] BEDS AT [facility] Last Admin: 06/05/22 13:30 Dose: 4 mg Dextrose/Sodium Chloride (D5ns) 1,000 mls @ 80 mls/hr IVCONT .[id number] COUNTS [facility]CLUDE 234 BEDS AT THE [facility] Last Admin: 06/05/22 09:03 Dose: 80 mls/hr Metoprolol Tartrate (Metoprolol Tartrate 25 Mg Tablet) 25 mg PO BID [facility]S [facility]CLUDE 234 BEDS AT THE [facility]; Protocol Last Admin: 06/05/22 09:03 Dose: 25 mg Morphine Sulfate (Morphine Sulfate 4 Mg/Ml Cartridge) 4 mg IVPUSH Q4H PRN; Protocol PRN Reason: Pain, Severe (Pain Scale 7-10) Last Admin: 06/05/22 10:42 Dose: 4 mg Ondansetron HCl (Ondansetron Hcl 4 Mg/2 Ml Vial) 4 mg IVPUSH Q8H PRN PRN Reason: Nausea and Vomiting Pharmacy Consult (Consult Rx Perform Med Rec) 1 each MISCELLANE ONCE PRN PRN Reason: Consult order Sodium Chloride (0.9 % Sodium Chloride Flush 3 Ml Syringe) 3 ml IVFLUSH QSHIFT COUNTS [facility]CLUDE 234 BEDS AT THE [facility] Last Admin: 06/05/22 09:03 Dose: Not Given Home Medications Medication Instructions Recorded Confirmed Type No Known Home Meds 06/04/22 06/04/22 History Allergies Allergy/AdvReac Type Severity Reaction Status Date / Time No Known Allergies Allergy Verified 03/03/22 11:39 [No Known Allergies*] Physical Exam Vital signs: Vital Signs Temp 96.9 F 06/05/22 11:26 Pulse 64 06/05/22 11:26 Resp 18 06/05/22 11:26 BP 112/60 06/05/22 11:26 Pulse Ox 96 06/05/22 11:26 O2 Del Method 06/05/22 11:26 Intake & Output 06/04/22 06/05/22 06/05/22 18:59 06:59 18:59 Intake Total 400 / 1400 1000 / 1400 Output Total 350 / 350 200 / 200 Balance 400 / 1050 650 / 1050 -200 / -200 Urine Output (Average ml/kg/hr) 0.42 0.24 Intake: Intake, IV Amount 400 / 1400 1000 / 1400 Potassium Chloride/H20 10 meq 400 / 400 In 100 ml @ 100 mls/hr IV Q1H COUNTS INCLUDE 234 BEDS AT THE [facility] Rx#:[id number] Dextrose 5 % and 0.9 % NaCl 1, 1000 / 1000 000 ml @ 80 mls/hr IVCONT . [id number] COUNTS INCLUDE 234 BEDS AT THE [facility] Rx#:[id number] Output: Output, Urine Amount 200 / 200 Output, Urine Amount (Catheter) 350 / 350 Urethral 350 / 350 Other: NPO Yes Number of Unmeasured Voids 600 Urine dillon Urine Color Yellow Yellow Weight 69.5 kg Liberal Weight in Grams [id number] Weight 69.5 kg - Constitutional Present: moderate distress - Routine HEENT Exam Head: Present: normal inspection Eye: Present: normal appearance ENT: Present: mucous membranes moist - Routine Neck Exam Present: supple - Routine Respiratory Exam Present: CTAB - Routine Cardiovascular Exam Cardiovascular: Present: RRR, S1, S2 - Routine Abdominal Exam Present: soft, nontender Hem/Onc Consult Result - Labs CBC & Chem 7: 06/08/22 06:05 06/08/22 06:05 Labs: Short CBC 06/05/22 Range/Units 05:34 WBC 8.3 (4.8-10.8) X10*3/uL Hgb 9.9 L (12.0-16.0) g/dl Hct 29.4 L (37.0-47.0) % Plt Count 173 (160-400) X10*3/uL BMP 06/05/22 05:34 Sodium 136 Potassium 5.0 D Chloride 107 Carbon Dioxide 22 BUN 16 Creatinine 1.58 H Calcium 7.8 L D Assessment and Plan Patient Active problem list reviewed?: Yes (1) Brain tumor Status: Acute Assessment and plan: 71-year-old unfortunate lady with history of malignant melanoma. She presented with hip fracture status post fall. Patient has had mental status changes for few months. MRI of the brain: - Redemonstration of a large up to 8 cm expansile sellar/suprasellar mass exhibiting intraventricular extension into the third ventricle and the anterior aspect of the left lateral ventricle as well as invasion of the right cavernous sinus and encasement of the right cavernous internal carotid artery which remains patent. The lesion exhibits multiple signal signal levels and has enhancing solid and nonenhancing cystic components with the largest cystic component expanding the left lateral ventricular body and deforming the adjacent left frontal lobe. There is significant enlargement of the left lateral ventricle which is entrapped by the lesion. Erosion of the sellar floor, erosion of the basisphenoid of the clivus, and probable dehiscence of the posterior sphenoid sinus boyer bilaterally is better demonstrated on the corresponding CT study. Major differential considerations include a giant craniopharyngioma versus an invasive giant pituitary macroadenoma. Neurosurgical consultation advised. - The mass results in significant splaying of the suprasellar cistern and the proximal vessels of the entire ione of [place] was which exhibit preserved flow voids. Brain Tumor: MRI reporting large up to 8 cm expansile mass with invasion of right cavernous sinus and other malignant features Seems an operable, HCP leading towards comfort measures but once the hip is fixed to maintain some quality of life. 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 Unfortunately she is not really a surgical candidate. Melanoma rather radio resistant. PLAN: Continue dexamethasone. Right Hip fracture,Secondary to mechanical fall: Orthopedic team is involved. The plan is for surgical intervention after discussing with Anesthesia for possible spinal anesthesia, tomorrow. Meanwhile she is on Morphine for pain management. She would be a candidate for comfort measures/hospice care once the hip is fixed for pain control and palliation. Thank you for the consult, Will follow along with you, Cc: (2) Atrial fibrillation, new onset Status: Acute Assessment and plan: New onset AFib with RVR; Heart Rate is controlled now. PLAN: Continue small dose metoprolol to keep it under control. Hold on anticoagulation with planned surgery. Pending echo. - Time Spent With Patient Time Spent with Patient (in minutes): 30
[2022-06-05 15:37] VITALS: BP 121/58; PULSE 60; RESP 16; TEMP 36.2; O2SAT 93
[2022-06-05 19:42] VITALS: BP 117/58; PULSE 66; RESP 16; TEMP 36.4; O2SAT 98
--- NOTE | 2022-06-05 20:00 | MHC.SL.SWA ---
Speech Pathologist Impression: Risk of Aspiration Due to: Medically Fragile Neurological Condition Dysphasia Diet Status: Liquid Consistency and Strategies for Safe Swallow: Liquid Intake Recommendation: Ruso Thick Liquid Intake Strategies: Liquids by Teaspoon Only Solid Food Consistency: Dietary Recommendations: Pureed (NDD1) Additional Modifications to Solid Foods: Oral Medication Intake: Crushed with Puree Please contact the pharmacy regarding appropriate crushable or liquid drug formulations that are available whenever modified delivery is recommended. Compensatory Strategies and Precautions to be Taken for Safe Swallow: Liquids from Spoon Rate of Ingestion Change Supervision While Eating and Drinking for Safe Swallow: Total Assistance (1:1) Foods to Avoid: Swallowing Recommended Treatments: Compens. Strategy Educat. Recommendation for Speech: Inpatient Speech Therapy Comment: Patient presented with good toleration of all consistencies presented today, including thin, nectar thick liquids, puree and soft solid food textures. However, due to Hip FX, patient is currently unable to have head of bed elevated past 40-45 degrees, and is eating in reclined position. Due to this, it is recommended at this time that patient continue on diet recommended by MD, due to aspiration risk of eating reclined. Diet will likely be able to be advanced as soon as patient is able to eat in a safer position, as patient is not evidencing difficulty on swallowing as demonstrated today. , RD advised of recommendation by secure rashid, RN in person. [facility] will continue to follow, re-asses, upgrade with improved toleration of positioning for meals. Frequency/Duration: M-F while inpatient Date Range for Service Req: Timeline to reassess: Belling Machine Operator Clinican/Clinical Fellow: No Supervisory Statement: I have reviewed and agree with the student/clinical fellow's documentation: N/A Speech Language Pathologist: Natalia Mcdonough M.A., [facility]
[2022-06-05 23:48] VITALS: BP 111/73; PULSE 68; RESP 18; TEMP 36.2; O2SAT 97
[2022-06-06] VITALS (15 sets, daily range): BP systolic 104–161; BP diastolic 60–82; PULSE 63–100; RESP 8–20; TEMP 36.1–36.8; O2SAT 94–99
[2022-06-06] MEDS: 0.9 % Sodium Chloride Flush 3 ML SYRINGE IVFLUSH ×4 (01:14→23:26)
[2022-06-06] MEDS: Morphine Sulfate 4 MG/ML CARTRIDGE IVPUSH ×2 (01:14→21:43)
[2022-06-06] MEDS: dexAMETHasone sod phosphate 4 MG/ML VIAL IVPUSH ×5 (01:14→23:26)
[2022-06-06] MEDS: oxyCODONE HCl Immed Release 5 MG TABLET 10 MG PO (03:47)
[2022-06-06 06:54] LABS: Hematocrit 26.6 % (37.0-47.0); Hemoglobin 8.7 g/dl (12.0-16.0); Mean Corpuscular HGB Conc 32.7 g/dl (31.0-35.0); Mean Corpuscular Hemoglobin 28.3 pg (27.0-33.0); Mean Corpuscular Volume 86.6 fL (80.0-98.0); Mean Platelet Volume 10.2 fL (9.4-12.3); Platelet Count 192 X10*3/uL (160-400); Red Blood Count 3.07 X10*6/uL (4.20-5.50); Red Cell Distribution Width 12.6 % (11.0-16.0); White Blood Count 14.2 X10*3/uL (4.8-10.8)
[2022-06-06 07:00] LABS: Anion Gap 13 (12-20); Blood Urea Nitrogen 29 mg/dL (9-16); Calcium 7.9 mg/dL (8.4-10.2); Carbon Dioxide 20 mmol/L (22-29); Chloride 108 mmol/L (96-108); Creatinine Clr Calc Pharmacy 29.5; Estimated Glomerular Filt Rate 30; Glucose Random 151 mg/dL (60-115); Potassium 4.8 mmol/L (3.3-5.1); Sodium 136 mmol/L (135-145)
[2022-06-06] MEDS: Metoprolol Tartrate 25 MG TABLET PO ×2 (09:06→21:35)
--- NOTE | 2022-06-06 11:45 | MHC.SLORD ---
Speech Language Pathology Order Status: Per MD, pt is NPO for surgery this afternoon. No PO trials given. Once cleared by MD for PO after surgery, recommend resume TOOL MAKER BENCH recommendation PUREED solids/NECTAR THICK liquids.
--- NOTE | 2022-06-06 15:04 | HO.PM.IMPN ---
Subjective Subjective Date of Service: 06/06/22 Interval History: Seen and evaluated this morning More alert and interactive overall confused and could not provide any meaningful history Plan for surgeries after no Complaining of pain in the right hip No reported other overnight events Review of Systems Review of Systems: Yes Unobtainable due to mental status Physical Exam Vital Signs: Vital Signs: Last Vital Signs Temp 97.7 F 06/06/22 14:13 Pulse 72 06/06/22 14:13 Resp 18 06/06/22 14:13 BP 125/67 06/06/22 14:13 Pulse Ox 95 06/06/22 14:13 O2 Del Method 06/06/22 14:13 BMI result Body Mass Index 24.0 Const: Other: Constitutional : Awake with stimulation, not in distress Neck : Normal inspection, Supple Cardiovascular : RRR, no JVP, no lower extremity edema Respiratory : good bilateral air entry, no crackles, wheezes or rhonchi Gastrointestinal: soft, lax, Normal bowel sounds, Non tender Skin : Warm, Dry Musculoskeletal: Right leg exterior rotated and shorter than left leg Neurological : Alert with stimulation, disoriented and not following much of commands Objective Data Active Medications Acetaminophen (Acetaminophen 325 Mg Tablet) 650 mg PO Q6H PRN PRN Reason: Pain, Mild (Pain Scale 1-3) Dexamethasone Sodium Phosphate (Dexamethasone Sod Phosphate 4 Mg/Ml Vial) 4 mg IVPUSH Q6H [facility] Last Admin: 06/06/22 11:54 Dose: 4 mg Documented By: DAVID Dextrose/Sodium Chloride (D5ns) 1,000 mls @ 80 mls/hr IVCONT .[id number] [facility] Last Infusion: 06/06/22 14:48 Dose: 0 mls/hr Documented By: DAVID Metoprolol Tartrate (Metoprolol Tartrate 25 Mg Tablet) 25 mg PO BID [facility]; Protocol Last Admin: 06/06/22 09:06 Dose: 25 mg Documented By: DAVID Morphine Sulfate (Morphine Sulfate 4 Mg/Ml Cartridge) 4 mg IVPUSH Q4H PRN; Protocol PRN Reason: Pain, Severe (Pain Scale 7-10) Last Admin: 06/06/22 01:14 Dose: 4 mg Documented By: JUAN A Ondansetron HCl (Ondansetron Hcl 4 Mg/2 Ml Vial) 4 mg IVPUSH Q8H PRN PRN Reason: Nausea and Vomiting Pharmacy Consult (Consult Rx Perform Med Rec) 1 each MISCELLANE ONCE PRN PRN Reason: Consult order Sodium Chloride (0.9 % Sodium Chloride Flush 3 Ml Syringe) 3 ml IVFLUSH QSHIFT [facility] Last Admin: 06/06/22 09:06 Dose: 3 ml Documented By: DAVID Labs CBC & Chem 7: 06/06/22 05:37 06/06/22 05:37 Labs: Laboratory Results - last 24 hr 06/06/22 06/06/22 06/06/22 05:37 05:37 09:11 MCV 86.6 MCH 28.3 MCHC 32.7 RDW 12.6 Plt Count 192 MPV 10.2 Absolute Nucleated RBC 0.000 Nucleated RBC % (auto) 0.0 Anion Gap 13 Estim Creat Clear Calc 29.5 Estimated GFR 30 Random Glucose 151 H Calcium 7.9 L Blood Type O Positive Antibody Screen NEGATIVE Microbiology Microbiology Results: Microbiology 06/04/22 03:57 Blood Culture - Preliminary Blood - Venous No growth after 48 hours. 06/04/22 03:20 Blood Culture - Preliminary Blood - Venous No growth after 48 hours. Assessment and Plan (1) Brain tumor: Status: Acute (2) Hip fracture: Status: Acute Plan A 71 years old lady with PMH of CKD stage 3, HTN, malignant melanoma among others who presents to the hospital after sustaining a fall at home. Hip fracture, right Secondary to mechanical fall Orthopedic team involved, plan for surgical intervention Morphine for pain management Brain mass MRI reporting large up to 8 cm expansile mass with invasion of right cavernous sinus and other malignant features Seems an operable, HCP leading to word comfort measures but once the hip fixed for quality of life Continue dexamethasone per oncology team recommendations Oncology team evaluation pending New onset AFib with RVR Rate controlled now Hold on anticoagulation with planned surgery echo showing normal LV function Continue small dose metoprolol to keep it under control [place] on CKD3 2/2 dehydration gentle hydration monitor BMP Hypokalemia resolved Follow BMP DVT PPX SCDs The patient will need Overnight inpatient hospital stay for correction of right hip fracture and evaluation of brain mass pending safe discharge plan. Quality Stroke Does the patient have a stroke diagnosis?: No VTE Prior VTE?: No VTE Risk Level:: Medical - moderate - high VTE Device Contraindication: Treatment Not Indicated VTE Drug Contraindication: N/A - Med Ordered
--- NOTE | 2022-06-06 15:48 | HO.ANESPROP2 ---
HPI - Anesthesia Eval Consult details Narrative: Right femur fracture PMFSH Active Problems Active Problems: All Active Problems (Updated 06/05/22 @ 15:17 by Shivani Gaytan MD) Brain tumor (Acute) Brain mass (Acute) Hip fracture (Acute) Atrial fibrillation, new onset (Acute) Acute hypokalemia (Acute) CKD (chronic kidney disease), stage III (Acute ~09/03/20) Annual physical exam (Acute) Malignant melanoma (Acute) Seasonal allergies (Acute) Pulmonary nodules (Acute) Mammogram declined (Acute) Colonoscopy refused (Acute) Constipation (Acute) HTN (hypertension) (Acute) Vitamin D deficiency (Acute) Past Medical History Medical History Annual physical exam CKD (chronic kidney disease), stage III (~09/03/20) Colonoscopy refused Constipation Eczema History of tobacco abuse HTN (hypertension) Mammogram declined Melanoma Vitamin D deficiency Functional capacity: bed bound Family History Family History Father HTN (hypertension) Cancer of prostate Mother HTN (hypertension) Son No problems noted. Daughter No problems noted. Family history of problems with anesthesia: No Surgical History Surgical History Hx of breast surgery History of Problems with Anesthesia: No Social History Social History Household Members: Unknown / Unable to assess Housing: Unknown / Unable to assess Unable to assess alcohol history related to: Unable to respond Alcohol intake: never Patient Tobacco Use Status: Former Tobacco user Years Smoked: 12 Advance Directives Date on File: 02/07/21 service: No Current occupational status: retired Meds Allergies Allergy/AdvReac Type Severity Reaction Status Date / Time No Known Allergies Allergy Verified 03/03/22 11:39 [No Known Allergies*] Active Medications: Current Medications Acetaminophen (Acetaminophen 325 Mg Tablet) 650 mg PO Q6H PRN PRN Reason: Pain, Mild (Pain Scale 1-3) Dexamethasone Sodium Phosphate (Dexamethasone Sod Phosphate 4 Mg/Ml Vial) 4 mg IVPUSH Q6H [facility] Last Admin: 06/06/22 11:54 Dose: 4 mg Dextrose/Sodium Chloride (D5ns) 1,000 mls @ 80 mls/hr IVCONT .[id number] COUNT INCLUDES [facility] Last Infusion: 06/06/22 14:48 Dose: Infused Cefazolin Sodium/Dextrose (Ancef) 2 gm in 50 mls @ 100 mls/hr IV PREOP ONE Stop: 06/06/22 16:10 Metoprolol Tartrate (Metoprolol Tartrate 25 Mg Tablet) 25 mg PO BID COUNT INCLUDES THE [facility]; Protocol Last Admin: 06/06/22 09:06 Dose: 25 mg Morphine Sulfate (Morphine Sulfate 4 Mg/Ml Cartridge) 4 mg IVPUSH Q4H PRN; Protocol PRN Reason: Pain, Severe (Pain Scale 7-10) Last Admin: 06/06/22 01:14 Dose: 4 mg Ondansetron HCl (Ondansetron Hcl 4 Mg/2 Ml Vial) 4 mg IVPUSH Q8H PRN PRN Reason: Nausea and Vomiting Pharmacy Consult (Consult Rx Perform Med Rec) 1 each MISCELLANE ONCE PRN PRN Reason: Consult order Sodium Chloride (0.9 % Sodium Chloride Flush 3 Ml Syringe) 3 ml IVFLUSH QSHIFT COUNT INCLUDES THE [facility] Last Admin: 06/06/22 09:06 Dose: 3 ml Home Medications Medication Instructions Recorded Confirmed Last Taken Type No Known Home Meds 06/04/22 06/04/22 Unknown History Exam Exam Date and Time: June 06, 2022 1548 Height,Weight and Vital Signs: Height 5 ft 7 in Weight 69.5 kg Last Vital Signs Temp 97.4 F 06/06/22 15:32 Pulse 100 06/06/22 15:32 Resp 17 06/06/22 15:32 BP 139/65 06/06/22 15:32 Pulse Ox 98 06/06/22 15:32 O2 Del Method 06/06/22 15:32 Pertinent Lab Results Pertinent Lab Results: Laboratory Tests 06/04/22 06/04/22 06/04/22 03:13 03:13 03:13 WBC 15.2 H RBC 4.38 Hgb 12.2 Hct 35.7 L MCV 81.5 MCH 27.9 MCHC 34.2 RDW 11.8 Plt Count 223 MPV 9.1 L Immature Gran % (Auto) 2.4 H Neut % (Auto) 50.8 Lymph % (Auto) 11.3 L [place] % (Auto) 35.3 H Eos % (Auto) 0.1 Baso % (Auto) 0.1 Lymph # (Auto) 1.7 [place] # (Auto) 5.4 H Eos # (Auto) 0.0 Baso # (Auto) 0.0 Abs Immat Gran (auto) 0.37 H Absolute Neuts (auto) 7.7 Absolute Nucleated RBC 0.000 Nucleated RBC % (auto) 0.0 Smear Tech's Comments VERIFIED PT INR Sodium 135 Potassium 2.8 L D Chloride 101 Carbon Dioxide 20 L Anion Gap 17 BUN 15 Creatinine 1.65 H Estim Creat Clear Calc 30.3 Estimated GFR 31 Random Glucose 170 H Lactic Acid Calcium 8.8 D Magnesium 1.6 Total Bilirubin 0.7 Direct Bilirubin 0.3 AST 25 ALT 14 Alkaline Phosphatase 89 Ammonia Total Creatine Kinase 252 H Troponin I High Sens 3.6 B-Natriuretic Peptide Total Protein 7.2 Albumin 3.9 TSH 5.58 H Free T4 0.84 Urine Color Urine Appearance Urine pH Ur Specific [place] Urine Protein Urine Glucose (UA) Urine Ketones Urine Blood Urine Nitrite Ur Leukocyte Esterase Urine RBC Urine WBC Ur Squamous Epith Cells Urine Bacteria Hyaline Casts Granular Casts Urine Opiates Screen Urine Fentanyl Screen Ur Barbiturates Screen Ur Phencyclidine Scrn Ur Amphetamines Screen U Benzodiazepines Scrn Urine Cocaine Screen U Marijuana (THC) Screen Ethyl Alcohol < 10 COVID-19 ([facility]) COVID-19 Clin Com Blood Type Antibody Screen 06/04/22 06/04/22 06/04/22 03:13 03:13 03:51 WBC RBC Hgb Hct MCV MCH MCHC RDW Plt Count MPV Immature Gran % (Auto) Neut % (Auto) Lymph % (Auto) [place] % (Auto) Eos % (Auto) Baso % (Auto) Lymph # (Auto) [place] # (Auto) Eos # (Auto) Baso # (Auto) Abs Immat Gran (auto) Absolute Neuts (auto) Absolute Nucleated RBC Nucleated RBC % (auto) Smear Tech's Comments PT 13.1 INR 1.1 Sodium Potassium Chloride Carbon Dioxide Anion Gap BUN Creatinine Estim Creat Clear Calc Estimated GFR Random Glucose Lactic Acid Calcium Magnesium Total Bilirubin Direct Bilirubin AST ALT Alkaline Phosphatase Ammonia 16 Total Creatine Kinase Troponin I High Sens B-Natriuretic Peptide 96 Total Protein Albumin TSH Free T4 Urine Color Urine Appearance Urine pH Ur Specific [place] Urine Protein Urine Glucose (UA) Urine Ketones Urine Blood Urine Nitrite Ur Leukocyte Esterase Urine RBC Urine WBC Ur Squamous Epith Cells Urine Bacteria Hyaline Casts Granular Casts Urine Opiates Screen Urine Fentanyl Screen Ur Barbiturates Screen Ur Phencyclidine Scrn Ur Amphetamines Screen U Benzodiazepines Scrn Urine Cocaine Screen U Marijuana (THC) Screen Ethyl Alcohol COVID-19 ([facility]) COVID-19 Clin Com Blood Type Antibody Screen 06/04/22 06/04/22 06/04/22 03:51 03:57 04:21 WBC RBC Hgb Hct MCV MCH MCHC RDW Plt Count MPV Immature Gran % (Auto) Neut % (Auto) Lymph % (Auto) [place] % (Auto) Eos % (Auto) Baso % (Auto) Lymph # (Auto) [place] # (Auto) Eos # (Auto) Baso # (Auto) Abs Immat Gran (auto) Absolute Neuts (auto) Absolute Nucleated RBC Nucleated RBC % (auto) Smear Tech's Comments PT INR Sodium Potassium Chloride Carbon Dioxide Anion Gap BUN Creatinine Estim Creat Clear Calc Estimated GFR Random Glucose Lactic Acid 1.8 Calcium Magnesium Total Bilirubin Direct Bilirubin AST ALT Alkaline Phosphatase Ammonia Total Creatine Kinase Troponin I High Sens B-Natriuretic Peptide Total Protein Albumin TSH Free T4 Urine Color Urine Appearance Urine pH Ur Specific [place] Urine Protein Urine Glucose (UA) Urine Ketones Urine Blood Urine Nitrite Ur Leukocyte Esterase Urine RBC Urine WBC Ur Squamous Epith Cells Urine Bacteria Hyaline Casts Granular Casts Urine Opiates Screen POSITIVE H Urine Fentanyl Screen Not Detected Ur Barbiturates Screen Not Detected Ur Phencyclidine Scrn Not Detected Ur Amphetamines Screen Not Detected U Benzodiazepines Scrn Not Detected Urine Cocaine Screen Not Detected U Marijuana (THC) Screen Not Detected Ethyl Alcohol COVID-19 ([facility]) Negative COVID-19 Clin Com See Note Blood Type Antibody Screen 06/04/22 06/05/22 06/05/22 04:22 05:34 05:34 WBC 8.3 RBC 3.50 L D Hgb 9.9 L Hct 29.4 L MCV 84.0 MCH 28.3 MCHC 33.7 RDW 12.2 Plt Count 173 MPV 9.7 Immature Gran % (Auto) Neut % (Auto) Lymph % (Auto) [place] % (Auto) Eos % (Auto) Baso % (Auto) Lymph # (Auto) [place] # (Auto) Eos # (Auto) Baso # (Auto) Abs Immat Gran (auto) Absolute Neuts (auto) Absolute Nucleated RBC 0.000 Nucleated RBC % (auto) 0.0 Smear Tech's Comments PT INR Sodium 136 Potassium 5.0 D Chloride 107 Carbon Dioxide 22 Anion Gap 12 BUN 16 Creatinine 1.58 H Estim Creat Clear Calc 31.7 Estimated GFR 32 Random Glucose 155 H Lactic Acid Calcium 7.8 L D Magnesium Total Bilirubin Direct Bilirubin AST ALT Alkaline Phosphatase Ammonia Total Creatine Kinase Troponin I High Sens B-Natriuretic Peptide Total Protein Albumin TSH Free T4 Urine Color Yellow Urine Appearance Clear Urine pH 5.5 Ur Specific [place] 1.015 Urine Protein 100 (2+) H Urine Glucose (UA) Negative Urine Ketones Negative Urine Blood Large (3+) H Urine Nitrite Negative Ur Leukocyte Esterase Negative Urine RBC >20 H Urine WBC 0-5 Ur Squamous Epith Cells 0-2 Urine Bacteria None Seen Hyaline Casts 3-5 Granular Casts Present Urine Opiates Screen Urine Fentanyl Screen Ur Barbiturates Screen Ur Phencyclidine Scrn Ur Amphetamines Screen U Benzodiazepines Scrn Urine Cocaine Screen U Marijuana (THC) Screen Ethyl Alcohol COVID-19 ([facility]) COVID-19 Clin Com Blood Type Antibody Screen 06/06/22 06/06/22 06/06/22 05:37 05:37 09:11 WBC 14.2 H RBC 3.07 L Hgb 8.7 L Hct 26.6 L MCV 86.6 MCH 28.3 MCHC 32.7 RDW 12.6 Plt Count 192 MPV 10.2 Immature Gran % (Auto) Neut % (Auto) Lymph % (Auto) [place] % (Auto) Eos % (Auto) Baso % (Auto) Lymph # (Auto) [place] # (Auto) Eos # (Auto) Baso # (Auto) Abs Immat Gran (auto) Absolute Neuts (auto) Absolute Nucleated RBC 0.000 Nucleated RBC % (auto) 0.0 Smear Tech's Comments PT INR Sodium 136 Potassium 4.8 Chloride 108 Carbon Dioxide 20 L Anion Gap 13 BUN 29 H Creatinine 1.70 H Estim Creat Clear Calc 29.5 Estimated GFR 30 Random Glucose 151 H Lactic Acid Calcium 7.9 L Magnesium Total Bilirubin Direct Bilirubin AST ALT Alkaline Phosphatase Ammonia Total Creatine Kinase Troponin I High Sens B-Natriuretic Peptide Total Protein Albumin TSH Free T4 Urine Color Urine Appearance Urine pH Ur Specific [place] Urine Protein Urine Glucose (UA) Urine Ketones Urine Blood Urine Nitrite Ur Leukocyte Esterase Urine RBC Urine WBC Ur Squamous Epith Cells Urine Bacteria Hyaline Casts Granular Casts Urine Opiates Screen Urine Fentanyl Screen Ur Barbiturates Screen Ur Phencyclidine Scrn Ur Amphetamines Screen U Benzodiazepines Scrn Urine Cocaine Screen U Marijuana (THC) Screen Ethyl Alcohol COVID-19 ([facility]) COVID-19 Clin Com Blood Type O Positive Antibody Screen NEGATIVE Airway Mallampati Class: II TM Dist: >3cm Neck ROM: Full Loose/Missing/Broken Teeth: No Heart: RRR Lungs: CTA Assessment and Plan Assessment Anesthesia Assessment: Anesthesia Plan Discussed and Chart Reviewed Final Anesthetic Review Family History of Problems with Anesthesia: No History of Problems with Anesthesia: No ASA Class: IV and Emergency Final Preanesthetic Review: No Changes in Pt Med Stat, Meds/Allgs Chart Reviewed, Consent Obtained/Reviewed, Anes Risks/Benef Reviewed and DNR Form (If Appl.) Patient Risk: High Procedure Risk: Intermediate Anesthetic Plan Anesthetic Plan: GA Disposition: Standard PACU
--- NOTE | 2022-06-06 17:15 | P.BOP_ITS ---
Brief Operative Note Date of Service: 06/06/22 Pre-op diagnosis: RIght hip Intertroch Post-op diagnosis: same Procedure: IMN right hip Implants: [place] [id number] 125 deg imn with 95 mm hip screw and 37.5 distal interlock Surgeon: Vaughn Carey MD Anesthesia: GETA and local Was an Log Yard Manager used for this Procedure?: Yes Log Yard Manager: Tanner Avila Estimated blood loss (mL): 225 IV fluids (mL): 800 Pathology: none sent Condition: stable Disposition: PACU
[2022-06-06] MEDS: Enoxaparin Sodium 30 MG/0.3 ML SYRINGE SUBCUT (18:31)
[2022-06-06] MEDS: Dextrose 5 % and 0.9 % NaCl 1,000 ML 80 ML IVCONT (18:32)
[2022-06-07] VITALS (13 sets, daily range): BP systolic 122–175; BP diastolic 61–94; PULSE 70–89; RESP 12–20; TEMP 36–37.1; O2SAT 92–98
[2022-06-07] MEDS: dexAMETHasone sod phosphate 4 MG/ML VIAL IVPUSH ×3 (05:15→18:27)
[2022-06-07] MEDS: Dextrose 5 % and 0.9 % NaCl 1,000 ML 80 ML IVCONT (06:17)
[2022-06-07 06:51] LABS: Hemoglobin 7.1 g/dl (12.0-16.0); Mean Corpuscular HGB Conc 32.3 g/dl (31.0-35.0); Mean Corpuscular Hemoglobin 28.3 pg (27.0-33.0); Mean Corpuscular Volume 87.6 fL (80.0-98.0); Mean Platelet Volume 10.2 fL (9.4-12.3); Platelet Count 219 X10*3/uL (160-400); Red Blood Count 2.51 X10*6/uL (4.20-5.50); Red Cell Distribution Width 12.7 % (11.0-16.0); White Blood Count 22.1 X10*3/uL (4.8-10.8)
[2022-06-07 07:02] LABS: Anion Gap 13 (12-20); Blood Urea Nitrogen 38 mg/dL (9-16); Calcium 7.8 mg/dL (8.4-10.2); Carbon Dioxide 20 mmol/L (22-29); Chloride 111 mmol/L (96-108); Creatinine Clr Calc Pharmacy 29.8; Estimated Glomerular Filt Rate 30; Glucose Random 152 mg/dL (60-115); Potassium 4.5 mmol/L (3.3-5.1); Sodium 139 mmol/L (135-145)
[2022-06-07] MEDS: Metoprolol Tartrate 25 MG TABLET PO ×2 (08:13→19:35)
[2022-06-07] MEDS: 0.9 % Sodium Chloride Flush 3 ML SYRINGE IVFLUSH ×2 (08:14→20:09)
[2022-06-07] MEDS: Morphine Sulfate 4 MG/ML CARTRIDGE IVPUSH ×2 (08:58→21:32)
--- NOTE | 2022-06-07 09:20 | PM.PNORT ---
Subjective Subjective Date of Service: 06/07/22 Interval history: POD1 s/p right hip IM Nail. Patient is resting in bed comfortably. No overnight events. Pain is well managed. No additional complaints. Physical Exam Vital Signs: Vital Signs: Last Vital Signs Temp 98.1 F 06/07/22 08:00 Pulse 73 06/07/22 08:00 Resp 16 06/07/22 08:00 BP 132/66 06/07/22 08:00 Pulse Ox 92 06/07/22 08:00 O2 Del Method 06/07/22 08:00 O2 Flow Rate 2 06/06/22 17:52 BMI result Body Mass Index 24.0 Const: General: cooperative, healthy appearing and no acute distress Resp: Effort & Inspection: normal respiratory effort and able to speak in complete sentences Cardio: Rate: regular rate Peripheral pulses: Peripheral pulses 2+ throughout GI: Palpation (GI): Soft to palpation Skin: Lesions: no lesions Rashes: no rashes Extrem: Other: Right hip bandages are c/d/i. NVI. Procedures Date of Service Date of Service: 06/07/22 Progress Note: A&P Assessment and plan (1) Hip fracture: Status: Acute Plan Continue pain mgmnt Begin Lovenox for dvt ppx begin PT for Rt hip IM Nail - WBAT Dispo planning-Pending PT eval, pain mgmnt Time Spent With Patient Time: Total time spent is greater than 50% in coordination of care (as documented) at patient's floor/unit and/or counseling patient: Quality Stroke Does the patient have a stroke diagnosis?: No VTE Prior VTE?: No VTE Risk Level:: Medical - moderate - high VTE Device Contraindication: Treatment Not Indicated VTE Drug Contraindication: N/A - Med Ordered
--- NOTE | 2022-06-07 09:27 | HO.POSTANES ---
Post Anesthesia Evaluation Post Anesthesia Evaluation Vital Signs: Vital Signs Temp Pulse Resp BP Pulse Ox O2 Del Method 06/07/22 08:00 98.1 F 73 16 132/66 92 Room Air 06/07/22 03:58 97.1 F 79 16 124/69 95 Room Air 06/06/22 23:40 96.9 F 73 14 112/62 98 Room Air 06/06/22 21:43 20 Anesthesia: General LMA Mental Status: Awake Pain Control: Satisfactory Nausea/Vomiting: None Hydration: Adequate Anesthesia-Related Issues: No Anes. Related Issues
--- NOTE | 2022-06-07 14:34 | HO.PM.IMPN ---
Subjective Subjective Date of Service: 06/07/22 Interval History: Seen and evaluated this morning Drop of Hb to 7.1 and developing swelling in right hip overall confused and could not provide any meaningful history Complaining of pain in the right hip No reported other overnight events Review of Systems Review of Systems: Yes Unobtainable due to mental status Physical Exam Vital Signs: Vital Signs: Last Vital Signs Temp 97.8 F 06/07/22 11:29 Pulse 74 06/07/22 12:50 Resp 12 06/07/22 11:29 BP 136/65 06/07/22 12:50 Pulse Ox 95 06/07/22 12:50 O2 Del Method 06/07/22 11:29 O2 Flow Rate 2 06/06/22 17:52 BMI result Body Mass Index 24.0 Const: Other: Constitutional : Awake with stimulation, not in distress Neck : Normal inspection, Supple Cardiovascular : RRR, no JVP, no lower extremity edema Respiratory : good bilateral air entry, no crackles, wheezes or rhonchi Gastrointestinal: soft, lax, Normal bowel sounds, Non tender Skin : Warm, Dry Musculoskeletal: Right leg more swollen, no tenderness, no bleeding from surgical site Neurological : Alert with stimulation, disoriented and not following much of commands Objective Data Active Medications Acetaminophen (Acetaminophen 325 Mg Tablet) 650 mg PO Q6H PRN PRN Reason: Pain, Mild (Pain Scale 1-3) Dexamethasone Sodium Phosphate (Dexamethasone Sod Phosphate 4 Mg/Ml Vial) 4 mg IVPUSH Q6H [facility] Last Admin: 06/07/22 12:19 Dose: 4 mg Documented By: MADELYN Cefazolin Sodium/Dextrose (Ancef) 2 gm in 50 mls @ 100 mls/hr IV POSTOP [facility] Metoprolol Tartrate (Metoprolol Tartrate 25 Mg Tablet) 25 mg PO BID [facility]; Protocol Last Admin: 06/07/22 08:13 Dose: 25 mg Documented By: MADELYN Morphine Sulfate (Morphine Sulfate 4 Mg/Ml Cartridge) 4 mg IVPUSH Q4H PRN; Protocol PRN Reason: Pain, Severe (Pain Scale 7-10) Last Admin: 06/07/22 08:58 Dose: 4 mg Documented By: MADELYN Ondansetron HCl (Ondansetron Hcl 4 Mg/2 Ml Vial) 4 mg IVPUSH Q8H PRN PRN Reason: Nausea and Vomiting Pharmacy Consult (Consult Rx Perform Med Rec) 1 each MISCELLANE ONCE PRN PRN Reason: Consult order Sodium Chloride (0.9 % Sodium Chloride Flush 3 Ml Syringe) 3 ml IVFLUSH QSHIFT [facility] Last Admin: 06/07/22 08:14 Dose: 3 ml Documented By: MADELYN Labs CBC & Chem 7: 06/07/22 06:05 06/07/22 06:05 Labs: Laboratory Results - last 24 hr 06/06/22 06/07/22 06/07/22 09:11 06:05 06:05 MCV 87.6 MCH 28.3 MCHC 32.3 RDW 12.7 Plt Count 219 MPV 10.2 Absolute Nucleated RBC 0.000 Nucleated RBC % (auto) 0.0 Anion Gap 13 Estim Creat Clear Calc 29.8 Estimated GFR 30 Random Glucose 152 H Calcium 7.8 L Blood Type O Positive Antibody Screen NEGATIVE Crossmatch See Detail Assessment and Plan (1) Acute blood loss anemia: Status: Acute (2) Brain tumor: Status: Acute (3) Hip fracture: Status: Acute (4) Atrial fibrillation, new onset: Status: Acute Plan A 71 years old lady with PMH of CKD stage 3, HTN, malignant melanoma among others who presents to the hospital after sustaining a fall at home. Acute blood loss anemia Hemoglobin dropped to 7.1 this morning Reported blood loss in surgery, developing hematoma in the right hip Patient received Lovenox, to hold To give 2 units of blood Repeat CBC this afternoon Transfuse as needed to keep HGB above 8 Discussed with orthopedic team, no intervention needed at this point Hip fracture, right Secondary to mechanical fall Pod 1 Orthopedic team following Morphine for pain management Brain mass MRI reporting large up to 8 cm expansile mass with invasion of right cavernous sinus and other malignant features Seems an operable, HCP leading to word comfort measures but once the hip fixed for quality of life Continue dexamethasone per oncology team recommendations Oncology team evaluation pending New onset AFib with RVR Rate controlled now Hold on anticoagulation with ongoing hematoma echo showing normal LV function Continue small dose metoprolol to keep it under control K[place]TON on CKD3 2/2 dehydration Stable kidney function, continue to monitor monitor BMP Hypokalemia resolved Follow BMP DVT PPX SCDs The patient will need Overnight inpatient hospital stay for acute blood loss anemia and evaluation of brain mass pending safe discharge plan. Quality Stroke Does the patient have a stroke diagnosis?: No VTE Prior VTE?: No VTE Risk Level:: Medical - moderate - high VTE Device Contraindication: Treatment Not Indicated VTE Drug Contraindication: N/A - Med Ordered
[2022-06-08] VITALS (10 sets, daily range): BP systolic 132–168; BP diastolic 64–79; PULSE 64–73; RESP 15–20; TEMP 36.1–36.4; O2SAT 94–98
[2022-06-08] MEDS: dexAMETHasone sod phosphate 4 MG/ML VIAL IVPUSH ×4 (00:12→18:02)
[2022-06-08] MEDS: 0.9 % Sodium Chloride Flush 3 ML SYRINGE IVFLUSH ×3 (00:12→15:41)
[2022-06-08 00:57] LABS: Hematocrit 28.3 % (37.0-47.0); Hemoglobin 9.3 g/dl (12.0-16.0); Mean Corpuscular HGB Conc 32.9 g/dl (31.0-35.0); Mean Corpuscular Hemoglobin 28.2 pg (27.0-33.0); Mean Corpuscular Volume 85.8 fL (80.0-98.0); Mean Platelet Volume 9.7 fL (9.4-12.3); Platelet Count 156 X10*3/uL (160-400); Red Cell Distribution Width 13.8 % (11.0-16.0); White Blood Count 15.2 X10*3/uL (4.8-10.8)
[2022-06-08] MEDS: Morphine Sulfate 4 MG/ML CARTRIDGE IVPUSH (06:11)
[2022-06-08 06:23] LABS: Hematocrit 29.7 % (37.0-47.0); Hemoglobin 9.5 g/dl (12.0-16.0); Mean Corpuscular Hemoglobin 27.9 pg (27.0-33.0); Mean Corpuscular Volume 87.1 fL (80.0-98.0); Mean Platelet Volume 9.9 fL (9.4-12.3); NRBC Pct Auto 0.1 /100WBC (0.0-0.2); Platelet Count 170 X10*3/uL (160-400); Red Blood Count 3.41 X10*6/uL (4.20-5.50); Red Cell Distribution Width 13.9 % (11.0-16.0); White Blood Count 15.3 X10*3/uL (4.8-10.8)
[2022-06-08 06:46] LABS: Anion Gap 12 (12-20); Blood Urea Nitrogen 40 mg/dL (9-16); Calcium 7.9 mg/dL (8.4-10.2); Carbon Dioxide 22 mmol/L (22-29); Chloride 109 mmol/L (96-108); Creatinine Clr Calc Pharmacy 33.8; Estimated Glomerular Filt Rate 35; Glucose Random 121 mg/dL (60-115); Potassium 4.1 mmol/L (3.3-5.1); Sodium 139 mmol/L (135-145)
[2022-06-08] MEDS: Metoprolol Tartrate 25 MG TABLET PO ×2 (09:27→19:27)
--- NOTE | 2022-06-08 09:30 | PM.PNORT ---
Subjective Subjective Date of Service: 06/08/22 Interval history: POD2 s/p right hip IM Nail. Patient is resting in bed comfortably. No overnight events. Pain is well managed. No additional complaints. Physical Exam Vital Signs: Vital Signs: Last Vital Signs Temp 97.1 F 06/08/22 08:00 Pulse 65 06/08/22 08:00 Resp 20 06/08/22 08:00 BP 145/79 H 06/08/22 08:00 Pulse Ox 96 06/08/22 08:00 O2 Del Method 06/08/22 08:00 O2 Flow Rate 2 06/06/22 17:52 BMI result Body Mass Index 24.0 Const: General: cooperative, healthy appearing and no acute distress Resp: Effort & Inspection: normal respiratory effort and able to speak in complete sentences Cardio: Rate: regular rate Peripheral pulses: Peripheral pulses 2+ throughout GI: Palpation (GI): Soft to palpation Skin: Lesions: no lesions Rashes: no rashes Extrem: Other: Right hip incisions are c/d/i. NVI. Procedures Date of Service Date of Service: 06/08/22 Progress Note: A&P Assessment and plan (1) Hip fracture: Status: Acute Plan Continue pain mgmnt Begin Lovenox for dvt ppx begin PT for Rt hip IM Nail - WBAT Dispo planning-Pain mgmnt, able to d/c to rehab from orthopedic perspective. Time Spent With Patient Time: Total time spent is greater than 50% in coordination of care (as documented) at patient's floor/unit and/or counseling patient: Quality Stroke Does the patient have a stroke diagnosis?: No VTE Prior VTE?: No VTE Risk Level:: Medical - moderate - high VTE Device Contraindication: Treatment Not Indicated VTE Drug Contraindication: N/A - Med Ordered
[2022-06-08] MEDS: oxyCODONE HCl Immed Release 5 MG TABLET PO ×2 (10:53→19:27)
--- NOTE | 2022-06-08 12:38 | HO.PM.IMPN ---
Subjective Subjective Date of Service: 06/08/22 Interval History: Seen and evaluated this morning Hb improved to 9.5 after 2 units of blood Decreased swelling in right hip overall confused and could not provide any meaningful history Complaining of pain in the right hip No reported other overnight events Review of Systems Review of Systems: Yes Unobtainable due to mental status Physical Exam Vital Signs: Vital Signs: Last Vital Signs Temp 97.5 F 06/08/22 11:28 Pulse 64 06/08/22 11:28 Resp 20 06/08/22 11:28 BP 132/67 06/08/22 11:28 Pulse Ox 94 06/08/22 11:28 O2 Del Method 06/08/22 11:28 O2 Flow Rate 2 06/06/22 17:52 BMI result Body Mass Index 24.0 Const: Other: Constitutional : Awake with stimulation, not in distress Neck : Normal inspection, Supple Cardiovascular : RRR, no JVP, no lower extremity edema Respiratory : good bilateral air entry, no crackles, wheezes or rhonchi Gastrointestinal: soft, lax, Normal bowel sounds, Non tender Skin : Warm, Dry Musculoskeletal: Right leg less swollen at hip site, no tenderness, no bleeding from surgical site Neurological : Alert with stimulation, disoriented and not following much of commands Objective Data Active Medications Acetaminophen (Acetaminophen 325 Mg Tablet) 650 mg PO Q6H PRN PRN Reason: Pain, Mild (Pain Scale 1-3) Dexamethasone Sodium Phosphate (Dexamethasone Sod Phosphate 4 Mg/Ml Vial) 4 mg IVPUSH Q6H [facility] Last Admin: 06/08/22 06:15 Dose: 4 mg Documented By: DARLENE Enoxaparin Sodium (Enoxaparin Sodium 40 Mg/0.4 Ml Syringe) 40 mg SUBCUT Q24H [facility] Hydromorphone HCl (Hydromorphone Hcl 1 Mg/Ml Syringe) 0.25 mg IVPUSH Q4H PRN; Protocol PRN Reason: Pain, Severe (Pain Scale 7-10) Cefazolin Sodium/Dextrose (Ancef) 2 gm in 50 mls @ 100 mls/hr IV POSTOP [facility] Metoprolol Tartrate (Metoprolol Tartrate 25 Mg Tablet) 25 mg PO BID [facility]; Protocol Last Admin: 06/08/22 09:27 Dose: 25 mg Documented By: MADELYN Ondansetron HCl (Ondansetron Hcl 4 Mg/2 Ml Vial) 4 mg IVPUSH Q8H PRN PRN Reason: Nausea and Vomiting Oxycodone HCl (Oxycodone Hcl Immed Release 5 Mg Tablet) 5 mg PO Q4H PRN PRN Reason: Pain, Moderate (Pain Scale 4-6 Last Admin: 06/08/22 10:53 Dose: 5 mg Documented By: MADELYN Pharmacy Consult (Consult Rx Perform Med Rec) 1 each MISCELLANE ONCE PRN PRN Reason: Consult order Sodium Chloride (0.9 % Sodium Chloride Flush 3 Ml Syringe) 3 ml IVFLUSH QSHIFT [facility] Last Admin: 06/08/22 11:01 Dose: 3 ml Documented By: MADELYN Labs CBC & Chem 7: 06/08/22 06:05 06/08/22 06:05 Labs: Laboratory Results - last 24 hr 06/06/22 06/08/22 06/08/22 09:11 00:33 06:05 MCV 85.8 87.1 MCH 28.2 27.9 MCHC 32.9 32.0 RDW 13.8 13.9 Plt Count 156 L D 170 MPV 9.7 9.9 Absolute Nucleated RBC 0.000 0.020 H Nucleated RBC % (auto) 0.0 0.1 Anion Gap Estim Creat Clear Calc Estimated GFR Random Glucose Calcium Blood Type O Positive Antibody Screen NEGATIVE Crossmatch See Detail 06/08/22 06:05 MCV MCH MCHC RDW Plt Count MPV Absolute Nucleated RBC Nucleated RBC % (auto) Anion Gap 12 Estim Creat Clear Calc 33.8 Estimated GFR 35 Random Glucose 121 H Calcium 7.9 L Blood Type Antibody Screen Crossmatch Assessment and Plan (1) Acute blood loss anemia: Status: Acute (2) Brain tumor: Status: Acute (3) Hip fracture: Status: Acute (4) Atrial fibrillation, new onset: Status: Acute Plan A 71 years old lady with PMH of CKD stage 3, HTN, malignant melanoma among others who presents to the hospital after sustaining a fall at home. Acute blood loss anemia Hemoglobin improved to 9.5 after 2 units transfusion Reported blood loss in surgery, developing hematoma in the right hip Restart Lovenox for DVT prophylaxis Monitor H&H Transfuse as needed to keep HGB above 8 Discussed with orthopedic team, no intervention needed at this point Hip fracture, right Secondary to mechanical fall Pod 2 Orthopedic team following, start physical therapy Morphine for pain management Brain mass MRI reporting large up to 8 cm expansile mass with invasion of right cavernous sinus and other malignant features Seems an operable, HCP leading to word comfort measures but once the hip fixed for quality of life Continue dexamethasone per oncology team recommendations Oncology team evaluation pending New onset AFib with RVR Rate controlled now Started on Eliquis DVT dose prophylaxis echo showing normal LV function Continue small dose metoprolol to keep it under control [place] on CKD3 2/2 dehydration Stable kidney function, continue to monitor monitor BMP Hypokalemia resolved Follow BMP DVT PPX SCDs The patient will need Overnight inpatient hospital stay for acute blood loss anemia and evaluation of brain mass pending safe discharge plan. Quality Stroke Does the patient have a stroke diagnosis?: No VTE Prior VTE?: No VTE Risk Level:: Medical - moderate - high VTE Device Contraindication: Treatment Not Indicated VTE Drug Contraindication: N/A - Med Ordered
[2022-06-08] MEDS: HYDROmorphone HCl 1 MG/ML SYRINGE 0.25 MG IVPUSH (15:27)
[2022-06-08] MEDS: Acetaminophen 325 MG TABLET 650 MG PO (15:54)
[2022-06-08] MEDS: Enoxaparin Sodium 40 MG/0.4 ML SYRINGE SUBCUT (18:02)
[2022-06-09] VITALS (8 sets, daily range): BP systolic 156–182; BP diastolic 75–91; PULSE 53–66; RESP 18–20; TEMP 35.9–36.6; O2SAT 94–100
[2022-06-09] MEDS: dexAMETHasone sod phosphate 4 MG/ML VIAL IVPUSH ×5 (00:42→23:55)
[2022-06-09] MEDS: 0.9 % Sodium Chloride Flush 3 ML SYRINGE IVFLUSH ×4 (00:42→23:54)
[2022-06-09] MEDS: HYDROmorphone HCl 1 MG/ML SYRINGE 0.25 MG IVPUSH (05:11)
--- NOTE | 2022-06-09 12:25 | MHC.SL.SWA ---
Speech Pathologist Impression:Pharyngeal phase dysphagia Risk of Aspiration Due to: Medically Fragile Neurological Condition Dysphasia Diet Status: Upgrade solids Liquid Consistency and Strategies for Safe Swallow: Liquid Intake Recommendation: [place] Thick Liquid Intake Strategies: Small Sips No Straws Solid Food Consistency: Dietary Recommendations: Regular Additional Modifications to Solid Foods: Recommend aspiration precautions, total supervision d/t confusion, provide assistance as needed. Oral Medication Intake: Whole with Puree Please contact the pharmacy regarding appropriate crushable or liquid drug formulations that are available whenever modified delivery is recommended. Compensatory Strategies and Precautions to be Taken for Safe Swallow: Sitting Upright (90 deg) Double Swallow No Straw Small Bites and Sips Alternate Liquids/Solids Rate of Ingestion Change Avoid Specific Foods Supervision While Eating and Drinking for Safe Swallow: Total Supervision (1:1) Foods to Avoid: Hard, tough to chew solids Swallowing Recommended Treatments: Compens. Strategy Educat. Recommendation for Speech: Inpatient Speech Therapy [employer] Clinican/Clinical Fellow: No Supervisory Statement: I have reviewed and agree with the student/clinical fellow's documentation: N/A Speech Language Pathologist: Melvi Rushing M.A., CCC-AGILE DEVELOPER
[2022-06-09] MEDS: polyethylene glycoL 3350 17 GM POWD.PACK PO ×2 (14:05→21:20)
[2022-06-09] MEDS: bisacodyL 10 MG SUPP.RECT PR (14:05)
--- NOTE | 2022-06-09 14:06 | P.PNIM_ITS ---
Subjective Subjective Date of Service: 06/09/22 Interval History: Seen and evaluated this morning Hb Stablestable after 2 units of blood Decreased swelling in right hip overall confused sweetly Complaining of pain in the right hip No reported other overnight events Review of Systems Review of Systems: Yes all other systems are reviewed and are negative Physical Exam Vital Signs: Vital Signs: Last Vital Signs Temp 96.9 F 06/09/22 11:10 Pulse 66 06/09/22 11:10 Resp 18 06/09/22 11:10 BP 159/77 H 06/09/22 11:10 Pulse Ox 100 06/09/22 11:10 O2 Del Method 06/09/22 11:10 O2 Flow Rate 2 06/06/22 17:52 BMI result Body Mass Index 24.0 Const: Other: Constitutional : Awake with stimulation, not in distress Neck : Normal inspection, Supple Cardiovascular : RRR, no JVP, no lower extremity edema Respiratory : good bilateral air entry, no crackles, wheezes or rhonchi Gastrointestinal: soft, lax, Normal bowel sounds, Non tender Skin : Warm, Dry Musculoskeletal: Right leg less swollen at hip site, no tenderness, no bleeding from surgical site Neurological : Alert to self , disoriented , no focal weakness Objective Data Active Medications Acetaminophen (Acetaminophen 325 Mg Tablet) 650 mg PO Q6H PRN PRN Reason: Pain, Mild (Pain Scale 1-3) Last Admin: 06/08/22 15:54 Dose: 650 mg Documented By: MADELYN Dexamethasone Sodium Phosphate (Dexamethasone Sod Phosphate 4 Mg/Ml Vial) 4 mg IVPUSH Q6H [facility] Last Admin: 06/09/22 14:04 Dose: 4 mg Documented By: KADEN Enoxaparin Sodium (Enoxaparin Sodium 40 Mg/0.4 Ml Syringe) 40 mg SUBCUT Q24H [facility] Last Admin: 06/08/22 18:02 Dose: 40 mg Documented By: MADELYN Hydromorphone HCl (Hydromorphone Hcl 1 Mg/Ml Syringe) 0.25 mg IVPUSH Q4H PRN; Protocol PRN Reason: Pain, Severe (Pain Scale 7-10) Last Admin: 06/09/22 05:11 Dose: 0.25 mg Documented By: DARLENE Cefazolin Sodium/Dextrose (Ancef) 2 gm in 50 mls @ 100 mls/hr IV POSTOP [facility] Metoprolol Tartrate (Metoprolol Tartrate 25 Mg Tablet) 25 mg PO BID [facility]; Protocol Last Admin: 06/09/22 09:22 Dose: Not Given Documented By: KADEN Non-Admin Reason: pulse less than parameter Ondansetron HCl (Ondansetron Hcl 4 Mg/2 Ml Vial) 4 mg IVPUSH Q8H PRN PRN Reason: Nausea and Vomiting Oxycodone HCl (Oxycodone Hcl Immed Release 5 Mg Tablet) 5 mg PO Q4H PRN PRN Reason: Pain, Moderate (Pain Scale 4-6 Last Admin: 06/08/22 19:27 Dose: 5 mg Documented By: KARLA Pharmacy Consult (Consult Rx Perform Med Rec) 1 each MISCELLANE ONCE PRN PRN Reason: Consult order Polyethylene Glycol (Polyethylene Glycol 3350 17 Gm Powd.Pack) 17 gm PO BID [facility] Last Admin: 06/09/22 14:05 Dose: 17 gm Documented By: KADEN Sodium Chloride (0.9 % Sodium Chloride Flush 3 Ml Syringe) 3 ml IVFLUSH QSHIFT [facility] Last Admin: 06/09/22 09:25 Dose: 3 ml Documented By: KADEN Labs CBC & Chem 7: 06/08/22 06:05 06/08/22 06:05 Microbiology Microbiology Results: Microbiology 06/04/22 03:57 Blood Culture - Final Blood - Venous No growth after 5 days. 06/04/22 03:20 Blood Culture - Final Blood - Venous No growth after 5 days. Assessment and Plan (1) Acute blood loss anemia: Status: Acute (2) Brain tumor: Status: Acute (3) Hip fracture: Status: Acute Plan A 71 years old lady with PMH of CKD stage 3, HTN, malignant melanoma among others who presents to the hospital after sustaining a fall at home. Acute blood loss anemia Hemoglobin improved to 9.5 after 2 units transfusion Reported blood loss in surgery, developing hematoma in the right hip Restart Lovenox for DVT prophylaxis Monitor H&H Transfuse as needed to keep HGB above 8 Discussed with orthopedic team, no intervention needed at this point Hip fracture, right Secondary to mechanical fall Pod 3 Orthopedic team following, start physical therapy Morphine for pain management PT eval Brain mass MRI reporting large up to 8 cm expansile mass with invasion of right cavernous sinus and other malignant features Seems an operable, HCP leading to word comfort measures but once the hip fixed for quality of life Continue dexamethasone per oncology team recommendations Oncology team input appreciated, Dexamethason, candidate for [facility]PER[facility]\hospice New onset AFib with RVR Rate controlled now Started on Eliquis DVT dose prophylaxis echo showing normal LV function Continue small dose metoprolol to keep it under control tried to call to discuss need of AC but no response , left a msg [place] on CKD3 2/2 dehydration Stable kidney function, continue to monitor monitor BMP Hypokalemia resolved Follow BMP DVT PPX SCDs The patient will need Overnight inpatient hospital stay for acute blood loss anemia and evaluation of brain mass pending safe discharge plan. Quality Stroke Does the patient have a stroke diagnosis?: No VTE Prior VTE?: No VTE Risk Level:: Medical - moderate - high VTE Device Contraindication: Treatment Not Indicated VTE Drug Contraindication: N/A - Med Ordered
[2022-06-09] MEDS: Acetaminophen 325 MG TABLET 650 MG PO (15:34)
[2022-06-09] MEDS: Enoxaparin Sodium 40 MG/0.4 ML SYRINGE SUBCUT (17:14)
[2022-06-09] MEDS: Metoprolol Tartrate 25 MG TABLET PO (21:13)
[2022-06-09] MEDS: oxyCODONE HCl Immed Release 5 MG TABLET PO (21:23)
--- NOTE | 2022-06-09 21:26 | PC.NURSE ---
Addendum entered by Annamarie Lofton RN 06/09/22 22:45: BP stil lelevated 178/91 pulse 56,patient appear comfortable, notified Original Note: BP elevated,patient c/o pain,scheduled Metrprolol administered, Roxicodone administered,will reassess
--- NOTE | 2022-06-09 21:29 | PC.NURSE ---
Joce Richards/Cesar at 2100,DTV # 1 at [id number]
[2022-06-10] VITALS (12 sets, daily range): BP systolic 158–200; BP diastolic 78–92; PULSE 56–69; RESP 16–18; TEMP 36.1–36.4; O2SAT 96–98
[2022-06-10] MEDS: dexAMETHasone sod phosphate 4 MG/ML VIAL IVPUSH ×4 (05:56→23:43)
[2022-06-10] MEDS: HYDROmorphone HCl 1 MG/ML SYRINGE 0.25 MG IVPUSH ×3 (06:02→18:00)
[2022-06-10] MEDS: 0.9 % Sodium Chloride Flush 3 ML SYRINGE IVFLUSH ×4 (08:16→23:46)
[2022-06-10] MEDS: Metoprolol Tartrate 25 MG TABLET PO ×2 (08:16→20:14)
[2022-06-10] MEDS: polyethylene glycoL 3350 17 GM POWD.PACK PO ×2 (08:16→20:14)
--- NOTE | 2022-06-10 08:52 | W.PM.OPN ---
Operative Note Operative Note Date of Service: 06/06/22 Narrative: Date of Service: 06/06/22 Pre-op diagnosis: RIght hip Intertroch Post-op diagnosis: same Procedure: IMN right hip Implants: [place] [id number] 125 deg imn with 95 mm hip screw and 37.5 distal interlock Surgeon: Vaughn Carey MD Anesthesia: GETA and local Was an Micropaleontologist used for this Procedure?: Yes Micropaleontologist: Tanner Avila Estimated blood loss (mL): 225 IV fluids (mL): 800 Pathology: none sent Condition: stable Disposition: PACU Procedure in detail: Patient was brought to the operating room and prepped and draped in standard sterile fashion. Time-out was called to identify proper site procedure proper surgeon and IV antibiotics per weight were administered. She was positioned on the fracture table and a traction and slight internal rotation were performed and biplanar fluoroscopy confirmed initial fracture reduction. Traction was used to reduce the fracture. I then made a stab incision proximal to the greater trochanter in using a guidewire made a entry point just lateral to the tip of the greater trochanter and placed a guidewire into the femoral metadiaphysis. I then over-reamed with 15 mm Reamer placed my ball-tip guidewire down distally in the femur and measured my length. I selected a 360mm nail and reamed up to a 12.5. I then placed a [id number] 125deg nail. Once inserted to the appropriate length, I then turned my attention to the hip screw where I used a guidewire and a tip apex distance of less than 1.5 measured my hip screw. I then pre drilled and placed a hip screw using biplanar fluoroscopy. Once I was satisfied with the position of the hip screw I turned my attention to the distal aspect of the nail. Using perfect [place] technique I placed 1 static distal interlocking screw in standard AO technique. I then removed all I then placed my set screw proximally and removed all extraneous instrumentation. Final biplanar radiographs were taken. I was satisfied with the position of the hardware and the fracture reduction. I copiously irrigated closed with absorbable sutures bisi and injected 30 mL of into the area of the incisions. Traction was let down patient was placed in sterile dressing awakened from anesthesia brought to recovery room stable condition there were no known complications.
[2022-06-10] MEDS: amLODIPine Besylate 5 MG TABLET PO (09:21)
--- NOTE | 2022-06-10 10:18 | MHC.SL.SWA ---
Speech Pathologist Impression: Risk of Aspiration Due to: Medically Fragile Neurological Condition Dysphasia Diet Status: Recommend UPGRADE liquids to THIN. Recommend NO STRAWS. Patient can be independent in eating but will require supervision due to confusion and impulsivity. Cue patient to take small sips and bites only. Diet order updated by COREMAKER. COREMAKER updated MD, RN, RD of recommendations via [place] Message. Liquid Consistency and Strategies for Safe Swallow: Liquid Intake Recommendation: Thin Liquid Intake Strategies: Small Sips No Straws Solid Food Consistency: Dietary Recommendations: Regular Additional Modifications to Solid Foods: Oral Medication Intake: Whole with Puree Please contact the pharmacy regarding appropriate crushable or liquid drug formulations that are available whenever modified delivery is recommended. Compensatory Strategies and Precautions to be Taken for Safe Swallow: Sitting Upright (90 deg) Double Swallow No Straw Small Bites and Sips Alternate Liquids/Solids Rate of Ingestion Change Avoid Specific Foods Supervision While Eating and Drinking for Safe Swallow: Total Supervision (1:1) Foods to Avoid: Hard, tough to chew solids Swallowing Recommended Treatments: Compens. Strategy Educat. Recommendation for Speech: Inpatient Speech Therapy Comment:Pt seen yesterday, with COREMAKER advancing diet to Regular with [place]CTAR THICK liquids, as patient appeared to aspirate on sip of water yesterday. Patient is now able to sit upright in bed comfortably. Patient was given initially tsp amount of water, with timely oral phase, timely swallow, no clinical signs of aspiration. Patient noted the water felt good. Patient was then given the cup to independently drink from. Patient initially took small sips, initiating timely swallow, no clinical signs of aspiration. Patient then took chain sips, with regular swallow between sips, however was cued to stop after several sips in this manner. No clinical signs of aspiration, despite chain sip behavior. Patient then took several more sips of liquid, with no clinical signs of aspiration. Recommend UPGRADE liquids to THIN. Recommend NO STRAWS. Patient can be independent in eating but will require supervision due to confusion and impulsivity. Cue patient to take small sips and bites only. Aspiration precautions continue to apply. Frequency/Duration: M-F while inpatient Date Range for Service Req: Timeline to reassess: Fitting Supervisor Clinican/Clinical Fellow: No Supervisory Statement: I have reviewed and agree with the student/clinical fellow's documentation: N/A Speech Language Pathologist: Natalia Mcdonough M.A., CCC-COREMAKER
--- NOTE | 2022-06-10 10:59 | HO.PM.IMPN ---
Subjective Subjective Date of Service: 06/10/22 Interval History: Seen and evaluated this morning working with PT but mainly in bed Decreased swelling in right hip overall confused sweetly Complaining of pain in the right hip No reported other overnight events Review of Systems Review of Systems: Yes all other systems are reviewed and are negative Physical Exam Vital Signs: Vital Signs: Last Vital Signs Temp 97.0 F 06/10/22 07:28 Pulse 69 06/10/22 07:28 Resp 18 06/10/22 07:28 BP 180/90 H 06/10/22 07:39 Pulse Ox 98 06/10/22 07:28 O2 Del Method 06/10/22 07:28 O2 Flow Rate 2 06/06/22 17:52 BMI result Body Mass Index 24.0 Const: Other: Constitutional : Awake with stimulation, not in distress Neck : Normal inspection, Supple Cardiovascular : RRR, no JVP, no lower extremity edema Respiratory : good bilateral air entry, no crackles, wheezes or rhonchi Gastrointestinal: soft, lax, Normal bowel sounds, Non tender Skin : Warm, Dry Musculoskeletal: Right leg less swollen at hip site, no tenderness, no bleeding from surgical site Neurological : Alert to self , disoriented , no focal weakness Objective Data Active Medications Acetaminophen (Acetaminophen 325 Mg Tablet) 650 mg PO Q6H PRN PRN Reason: Pain, Mild (Pain Scale 1-3) Last Admin: 06/09/22 15:34 Dose: 650 mg Documented By: KARLA Amlodipine Besylate (Amlodipine Besylate 5 Mg Tablet) 5 mg PO DAILY [facility]; Protocol Last Admin: 06/10/22 09:21 Dose: 5 mg Documented By: ANA Dexamethasone Sodium Phosphate (Dexamethasone Sod Phosphate 4 Mg/Ml Vial) 4 mg IVPUSH Q6H MACKENZIE Last Admin: 06/10/22 05:56 Dose: 4 mg Documented By: DARLENE Enoxaparin Sodium (Enoxaparin Sodium 40 Mg/0.4 Ml Syringe) 40 mg SUBCUT Q24H MACKENZIE Last Admin: 06/09/22 17:14 Dose: 40 mg Documented By: KARLA Hydromorphone HCl (Hydromorphone Hcl 1 Mg/Ml Syringe) 0.25 mg IVPUSH Q4H PRN; Protocol PRN Reason: Pain, Severe (Pain Scale 7-10) Last Admin: 06/10/22 06:02 Dose: 0.25 mg Documented By: DARLENE Cefazolin Sodium/Dextrose (Ancef) 2 gm in 50 mls @ 100 mls/hr IV POSTOP [facility] Metoprolol Tartrate (Metoprolol Tartrate 25 Mg Tablet) 25 mg PO BID [facility]; Protocol Last Admin: 06/10/22 08:16 Dose: 25 mg Documented By: ANA Ondansetron HCl (Ondansetron Hcl 4 Mg/2 Ml Vial) 4 mg IVPUSH Q8H PRN PRN Reason: Nausea and Vomiting Oxycodone HCl (Oxycodone Hcl Immed Release 5 Mg Tablet) 5 mg PO Q4H PRN PRN Reason: Pain, Moderate (Pain Scale 4-6 Last Admin: 06/09/22 21:23 Dose: 5 mg Documented By: KARLA Pharmacy Consult (Consult Rx Perform Med Rec) 1 each MISCELLANE ONCE PRN PRN Reason: Consult order Polyethylene Glycol (Polyethylene Glycol 3350 17 Gm Powd.Pack) 17 gm PO BID [facility] Last Admin: 06/10/22 08:16 Dose: 17 gm Documented By: ANA Sodium Chloride (0.9 % Sodium Chloride Flush 3 Ml Syringe) 3 ml IVFLUSH QSHIFT [facility] Last Admin: 06/10/22 08:16 Dose: 3 ml Documented By: ANA Labs CBC & Chem 7: 06/08/22 06:05 06/08/22 06:05 Microbiology Microbiology Results: Microbiology 06/04/22 03:57 Blood Culture - Final Blood - Venous No growth after 5 days. Assessment and Plan (1) Acute blood loss anemia: Status: Acute (2) Brain mass: Status: Acute (3) Hip fracture: Status: Acute (4) Atrial fibrillation, new onset: Status: Acute Plan A 71 years old lady with PMH of CKD stage 3, HTN, malignant melanoma among others who presents to the hospital after sustaining a fall at home. 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 and other malignant features Seems an operable, HCP leading to word comfort measures but once the hip fixed for quality of life Continue dexamethasone per oncology team recommendations Oncology team input appreciated, Dexamethason, candidate for MANAGER OF CORPORATE COMMUNICATIONS\hospice trying to speak to HCP her to discuss goals of care New onset AFib with RVR Rate controlled now Started on Eliquis DVT dose prophylaxis echo showing normal LV function Continue small dose metoprolol to keep it under control tried to call to discuss need of AC but no response , left a msg KOLTON on CKD3 2/2 dehydration Stable kidney function, continue to monitor monitor BMP Hypokalemia resolved Follow BMP DVT PPX SCDs The patient will need Overnight inpatient hospital stay for acute blood loss anemia, hip fracture and brain cancer pending safe discharge plan. Quality Stroke Does the patient have a stroke diagnosis?: No VTE Prior VTE?: No VTE Risk Level:: Medical - moderate - high VTE Device Contraindication: Treatment Not Indicated VTE Drug Contraindication: N/A - Med Ordered
--- NOTE | 2022-06-10 15:24 | MHC.CM.PN ---
HOSPICE CONSULT PLACED PER CONVERSATION WITH SPOUSE/HCP FABIOLA [phone] MARTHA OFFERING A BED IF SHE IS TO DC TO [facility]. PLAN IS DC THURSDAY
[2022-06-10] MEDS: Enoxaparin Sodium 40 MG/0.4 ML SYRINGE SUBCUT (17:53)
[2022-06-11 03:19] VITALS: BP 180/84; PULSE 57; RESP 18; TEMP 36.6; O2SAT 100
[2022-06-11] MEDS: HYDROmorphone HCl 1 MG/ML SYRINGE 0.25 MG IVPUSH (05:19)
[2022-06-11] MEDS: dexAMETHasone sod phosphate 4 MG/ML VIAL IVPUSH ×4 (05:19→23:35)
[2022-06-11 07:03] VITALS: BP 133/66; PULSE 59; RESP 18; TEMP 36.6; O2SAT 97
[2022-06-11] MEDS: amLODIPine Besylate 5 MG TABLET PO (08:59)
[2022-06-11] MEDS: polyethylene glycoL 3350 17 GM POWD.PACK PO ×2 (08:59→21:06)
[2022-06-11] MEDS: 0.9 % Sodium Chloride Flush 3 ML SYRINGE IVFLUSH ×3 (08:59→21:07)
[2022-06-11] MEDS: Metoprolol Tartrate 25 MG TABLET PO ×2 (08:59→21:06)
[2022-06-11 11:07] VITALS: BP 170/80; PULSE 55; RESP 18; TEMP 36.3; O2SAT 96
[2022-06-11 11:26] VITALS: BP 172/87; PULSE 55; O2SAT 96
--- NOTE | 2022-06-11 12:15 | PM.DS ---
DS: Providers Provider Date of Service: 06/13/22 Date of admission: 06/04/22 17:22 Primary care physician: Unknown Physician Consults: 06/04/22 17:23 Consult to Hematology / Oncology Routine Consulting Provider: Christine Conde Reason for consultation: Brain mass for eval and rec. Consult to Orthopedics Routine Consulting Provider: Vaughn Carey Reason for consultation: Hip Fracture 06/05/22 08:19 Consult to Anesthesiology Stat Consulting Provider: Blayne Snow Reason for consultation: Right hip fx - hx no op brain tumor medicine rec's spinal only DS: Diagnosis Discharge Diagnosis (1) Acute blood loss anemia: Status: Acute (2) Brain mass: Status: Acute (3) Hip fracture: Status: Acute (4) Atrial fibrillation, new onset: Status: Acute DS: Summary Hospital Course Hospital Course: from initial hpi: Chief Complaint: Fall, hip fracture A 71 years old lady with PMH of CKD stage 3, HTN, malignant melanoma among others who presents to the hospital after sustaining a fall at home.? She was unable to provide meaningful history of information are taken from , medical records.? According to him she was trying to get out of the bed when she slipped and fell on her right hip and she could not stand up.? EMS was called and brought her to the hospital.? reported that for the last month he was away and noticed significant difference in his when he came back as she became more altered, confused, flat affect and noticed mental decline.? He believed that these things started almost 1 year ago but became more noticeable over the last month or so as she became unsteady on her feet.? In the emergency S CT scan, MRI of the head were concerning for large brain mass.? Hip x-ray showed hip fracture as the right side.? Discussed with orthopedic team who are considering surgical intervention.? Admitted for further evaluation and treatment. hopsitl course: Patient was admitted for fall complicated by right hip fracture. She underwent right hip IMN on 06/06/2022, course complicated by acute blood loss anemia. Hemoglobin improved and stabilized after 2 units of PRBC. Patient will continue with physical therapy and DVT prophylaxis with Lovenox. She should follow up outpatient with Orthopedics. Course was complicated by metabolic encephalopathy. MRI showed large 8 cm expansile mass with invasion the right cavernous sinus and other malignant features. Recommendations were for dexamethasone and outpatient oncology eval the most likely hospice care would be most appropriate. Course complicated by new onset atrial fibrillation with rapid ventricular response. Rate controlled with metoprolol, due to brain mass not a good candidate for anticoagulation. Course complicated by acute kidney injury on CKD 3 which were improved to baseline. Hypokalemia was replaced. She will be discharged home on hospice. Time Spent with Patient Time attestation: Total time spent providing and/or coordinating discharge services: Discharge coordination time: Greater than 30 minutes Quality: Safe Use of Opioids Does Pt have an Active Cancer Diagnosis on the Problem List?: Yes Opioid Measure Date for [facility] Report: 05/14/22 Opioid Measure Time for [facility] Report: 07:21 Quality: Stroke Does the patient have a stroke diagnosis?: No Physical Exam Vital Signs: Vital Signs: Last Vital Signs Temp 97.4 F 06/11/22 11:07 Pulse 55 06/11/22 11:26 Resp 18 06/11/22 11:07 BP 172/87 H 06/11/22 11:26 Pulse Ox 96 06/11/22 11:26 O2 Del Method 06/11/22 11:07 O2 Flow Rate 2 06/06/22 17:52 BMI result Body Mass Index 24.0 Const: Other: Constitutional : Awake with stimulation, not in distress Neck : Normal inspection, Supple Cardiovascular : RRR, no JVP, no lower extremity edema Respiratory : good bilateral air entry, no crackles, wheezes or rhonchi Gastrointestinal: soft, lax, Normal bowel sounds, Non tender Skin : Warm, Dry Musculoskeletal: Right leg less swollen at hip site, no tenderness, no bleeding from surgical site Neurological : Alert to self , disoriented , no focal weakness Discharge Plan Discharge Anticipated Discharge Date/Time: 06/13/22 07:21 Patient Disposition: Home Health Service Discharge Diagnosis: hip fracture Referrals: Physician,Unknown J [Primary Care Provider] - 1 Week Discharge Medications: New enoxaparin 40 mg/0.4 mL Syringe 40 mg subcut Q24H Qty: 0 0RF amlodipine 5 mg Tablet 5 mg PO DAILY Qty: 0 0RF Protocol: Hold for SBP< HOLD for SBP < : 90 metoprolol tartrate 25 mg Tablet 25 mg PO BID Qty: 0 0RF Protocol: Hold for SBP/HR < HOLD for SBP < : 90 HOLD for HR < : 60 dexamethasone 2 mg tablet 10 mg PO DAILY Qty: 1 0RF Discharge Orders: Discharge Order (Routine); Ordered 06/13/22 Ordered By: Mark Ngo Diet: Advance to usual diet Activity on Discharge: As tolerated Stand Alone Forms: Patient Portal Discharge page Care Plan Goals: recovery Health Concerns: brain mass Plan of Treatment: Gait training, strengthening, ADLs, WBAT Continue Lovenox for dvt ppx x6 weeks Keep dressing clean, dry and intact-no showering or tub baths Follow up with Orthopedics in 2 weeks Assessment: see above
--- NOTE | 2022-06-11 12:41 | MHC.CM.PN ---
Addendum entered by Karol Sandra RN 06/11/22 14:02: HOSPICE MADE AWARE. REPORTEDLY A CONSULT WILL HAPPEN TODAY. [facility] WAS OFFERING TODAY AND NOW THEY ARE ALSO AWARE OF HOLD UP Original Note: SPOUSE IN ROOM. NO HOSPICE CONSULT YET. HE DOES NOT WANT TO DC PATIENT UNTIL THAT OCCURS TIGER TEXT AND CALL TO [phone] TO INQUIRE WHEN SOMEONE WILL ARRIVE
--- NOTE | 2022-06-11 14:28 | MHC.CM.PN ---
IF PLAN IS DC TO [facility], SHE WILL GO TO SECOND FLOOR, ROOM 204
[2022-06-11 15:05] VITALS: BP 163/84; PULSE 71; RESP 15; TEMP 36.4; O2SAT 95
--- NOTE | 2022-06-11 15:24 | MHC.CM.PN ---
PATIENT WILL GO HOME THURSDAY UNDER [facility] HOSPICE MD AND RN TO BE MADE AWARE. PATIENT WILL NEED COMPLETED MOLST IF AMBULANCE TRANSPORT IS THE PLAN.
--- NOTE | 2022-06-11 15:26 | P.PNIM_ITS ---
Subjective Subjective Date of Service: 06/11/22 Interval History: cc: fall interval history:no pain Cardiovascular Cardiovascular: Reports no additional cardiovascular complaints Respiratory Respiratory: Reports no additional respiratory complaints Physical Exam Vital Signs: Vital Signs: Last Vital Signs Temp 97.6 F 06/11/22 15:05 Pulse 71 06/11/22 15:05 Resp 15 06/11/22 15:05 BP 163/84 H 06/11/22 15:05 Pulse Ox 95 06/11/22 15:05 O2 Del Method 06/11/22 15:05 O2 Flow Rate 2 06/06/22 17:52 BMI result Body Mass Index 24.0 Const: Other: Constitutional : Awake with stimulation, not in distress Neck : Normal inspection, Supple Cardiovascular : RRR, no JVP, no lower extremity edema Respiratory : good bilateral air entry, no crackles, wheezes or rhonchi Gastrointestinal: soft, lax, Normal bowel sounds, Non tender Skin : Warm, Dry Musculoskeletal: Right leg less swollen at hip site, no tenderness, no bleeding from surgical site Neurological : Alert to self , disoriented , no focal weakness Objective Data Active Medications Acetaminophen (Acetaminophen 325 Mg Tablet) 650 mg PO Q6H PRN PRN Reason: Pain, Mild (Pain Scale 1-3) Last Admin: 06/09/22 15:34 Dose: 650 mg Documented By: KARLA Amlodipine Besylate (Amlodipine Besylate 5 Mg Tablet) 5 mg PO DAILY [facility]; Protocol Last Admin: 06/11/22 08:59 Dose: 5 mg Documented By: GABBY Dexamethasone Sodium Phosphate (Dexamethasone Sod Phosphate 4 Mg/Ml Vial) 4 mg IVPUSH Q6H MACKENZIE Last Admin: 06/11/22 12:39 Dose: 4 mg Documented By: GABBY Enoxaparin Sodium (Enoxaparin Sodium 40 Mg/0.4 Ml Syringe) 40 mg SUBCUT Q24H MACKENZIE Last Admin: 06/10/22 17:53 Dose: 40 mg Documented By: ANA Hydromorphone HCl (Hydromorphone Hcl 1 Mg/Ml Syringe) 0.25 mg IVPUSH Q4H PRN; Protocol PRN Reason: Pain, Severe (Pain Scale 7-10) Last Admin: 06/11/22 05:19 Dose: 0.25 mg Documented By: HO.SUZUKH Cefazolin Sodium/Dextrose (Ancef) 2 gm in 50 mls @ 100 mls/hr IV POSTOP [facility] Metoprolol Tartrate (Metoprolol Tartrate 25 Mg Tablet) 25 mg PO BID [facility]; Protocol Last Admin: 06/11/22 08:59 Dose: 25 mg Documented By: GABBY Ondansetron HCl (Ondansetron Hcl 4 Mg/2 Ml Vial) 4 mg IVPUSH Q8H PRN PRN Reason: Nausea and Vomiting Oxycodone HCl (Oxycodone Hcl Immed Release 5 Mg Tablet) 5 mg PO Q4H PRN PRN Reason: Pain, Moderate (Pain Scale 4-6 Last Admin: 06/09/22 21:23 Dose: 5 mg Documented By: KARLA Pharmacy Consult (Consult Rx Perform Med Rec) 1 each MISCELLANE ONCE PRN PRN Reason: Consult order Polyethylene Glycol (Polyethylene Glycol 3350 17 Gm Powd.Pack) 17 gm PO BID [facility] Last Admin: 06/11/22 08:59 Dose: 17 gm Documented By: GABBY Sodium Chloride (0.9 % Sodium Chloride Flush 3 Ml Syringe) 3 ml IVFLUSH QSHIFT [facility] Last Admin: 06/11/22 08:59 Dose: 3 ml Documented By: GABBY Labs CBC & Chem 7: 06/08/22 06:05 06/08/22 06:05 Assessment and Plan (1) Acute blood loss anemia: Status: Acute (2) Brain mass: Status: Acute (3) Hip fracture: Status: Acute (4) Atrial fibrillation, new onset: Status: Acute Plan A 71 years old lady with PMH of CKD stage 3, HTN, malignant melanoma among others who presents to the hospital after sustaining a fall at home. Acute blood loss anemia Hemoglobin stable after 2 units transfusion Reported blood loss in surgery, developing hematoma in the right hip Restart Lovenox for DVT prophylaxis Discussed with orthopedic team, no intervention needed at this point Hip fracture, right Secondary to mechanical fall Pod 5 Orthopedic team following, start physical therapy Morphine for pain management PT eval Encephalopathy 2/2 Brain mass MRI reporting large up to 8 cm expansile mass with invasion of right cavernous sinus and other malignant features Seems an operable, HCP leading to word comfort measures but once the hip fixed for quality of life Continue dexamethasone per oncology team recommendations Oncology team input appreciated, Dexamethason, candidate for [employer] MANAGER\hospice plan for home hospice on 06/13/22 New onset AFib with RVR Rate controlled now echo showing normal LV function Continue small dose metoprolol to keep it under control not good candidate for AC due to brain mass KOLTON on CKD3 2/2 dehydration Stable kidney function, continue to monitor monitor BMP Hypokalemia resolved DVT PPX SCDs reason for continued hospitalization: awaiting hospice placement Quality Stroke Does the patient have a stroke diagnosis?: No VTE Prior VTE?: No VTE Risk Level:: Medical - moderate - high VTE Device Contraindication: Treatment Not Indicated VTE Drug Contraindication: N/A - Med Ordered
--- NOTE | 2022-06-11 16:59 | MHC.SLORD ---
Addendum entered and electronically signed by Melvi Rushing MA, CCC-KNIT TUBING DYER 06/11/22 18:44: D.S. Original Note: Speech Language Pathology Order Status: KNIT TUBING DYER checked in w/ RN, PROJECT TECHNICIAN and pt. All parties reported pt is tolerating current diet of regular solids and thin liquids.
[2022-06-11] MEDS: Enoxaparin Sodium 40 MG/0.4 ML SYRINGE SUBCUT (17:18)
[2022-06-11 19:10] VITALS: BP 134/88; PULSE 64; RESP 18; TEMP 35.8; O2SAT 96
[2022-06-12] VITALS: BP 162/58; PULSE 54; RESP 16; TEMP 36.3; O2SAT 98
[2022-06-12 03:01] VITALS: BP 144/86; PULSE 57; RESP 14; TEMP 36.2; O2SAT 96
[2022-06-12] MEDS: dexAMETHasone sod phosphate 4 MG/ML VIAL IVPUSH ×3 (05:37→17:17)
[2022-06-12 07:02] VITALS: BP 134/83; PULSE 57; RESP 18; TEMP 36.6; O2SAT 97
[2022-06-12] MEDS: Metoprolol Tartrate 25 MG TABLET PO ×2 (08:45→21:34)
[2022-06-12] MEDS: amLODIPine Besylate 5 MG TABLET PO (08:45)
[2022-06-12] MEDS: 0.9 % Sodium Chloride Flush 3 ML SYRINGE IVFLUSH ×3 (08:45→21:40)
[2022-06-12] MEDS: polyethylene glycoL 3350 17 GM POWD.PACK PO ×2 (08:45→21:34)
--- NOTE | 2022-06-12 09:25 | P.PNIM_ITS ---
Subjective Subjective Date of Service: 06/12/22 Interval History: cc: fall interval history:no pain Cardiovascular Cardiovascular: Reports no additional cardiovascular complaints Respiratory Respiratory: Reports no additional respiratory complaints Physical Exam Vital Signs: Vital Signs: Last Vital Signs Temp 97.8 F 06/12/22 07:02 Pulse 57 06/12/22 07:02 Resp 18 06/12/22 07:02 BP 134/83 06/12/22 07:02 Pulse Ox 97 06/12/22 07:02 O2 Del Method 06/12/22 07:02 O2 Flow Rate 2 06/06/22 17:52 BMI result Body Mass Index 24.0 Const: Other: Constitutional : Awake with stimulation, not in distress Neck : Normal inspection, Supple Cardiovascular : RRR, no JVP, no lower extremity edema Respiratory : good bilateral air entry, no crackles, wheezes or rhonchi Gastrointestinal: soft, lax, Normal bowel sounds, Non tender Skin : Warm, Dry Musculoskeletal: Right leg less swollen at hip site, no tenderness, no bleeding from surgical site Neurological : Alert to self , disoriented , no focal weakness Objective Data Active Medications Acetaminophen (Acetaminophen 325 Mg Tablet) 650 mg PO Q6H PRN PRN Reason: Pain, Mild (Pain Scale 1-3) Last Admin: 06/09/22 15:34 Dose: 650 mg Documented By: KARLA Amlodipine Besylate (Amlodipine Besylate 5 Mg Tablet) 5 mg PO DAILY [facility]; Protocol Last Admin: 06/12/22 08:45 Dose: 5 mg Documented By: JANE Dexamethasone Sodium Phosphate (Dexamethasone Sod Phosphate 4 Mg/Ml Vial) 4 mg IVPUSH Q6H MACKENZIE Last Admin: 06/12/22 05:37 Dose: 4 mg Documented By: KIMMIE Enoxaparin Sodium (Enoxaparin Sodium 40 Mg/0.4 Ml Syringe) 40 mg SUBCUT Q24H MACKENZIE Last Admin: 06/11/22 17:18 Dose: 40 mg Documented By: GABBY Hydromorphone HCl (Hydromorphone Hcl 1 Mg/Ml Syringe) 0.25 mg IVPUSH Q4H PRN; Protocol PRN Reason: Pain, Severe (Pain Scale 7-10) Last Admin: 06/11/22 05:19 Dose: 0.25 mg Documented By: CONI Cefazolin Sodium/Dextrose (Ancef) 2 gm in 50 mls @ 100 mls/hr IV POSTOP [facility] Metoprolol Tartrate (Metoprolol Tartrate 25 Mg Tablet) 25 mg PO BID [facility]; Protocol Last Admin: 06/12/22 08:45 Dose: 25 mg Documented By: JANE Ondansetron HCl (Ondansetron Hcl 4 Mg/2 Ml Vial) 4 mg IVPUSH Q8H PRN PRN Reason: Nausea and Vomiting Oxycodone HCl (Oxycodone Hcl Immed Release 5 Mg Tablet) 5 mg PO Q4H PRN PRN Reason: Pain, Moderate (Pain Scale 4-6 Last Admin: 06/09/22 21:23 Dose: 5 mg Documented By: KARLA Pharmacy Consult (Consult Rx Perform Med Rec) 1 each MISCELLANE ONCE PRN PRN Reason: Consult order Polyethylene Glycol (Polyethylene Glycol 3350 17 Gm Powd.Pack) 17 gm PO BID [facility] Last Admin: 06/12/22 08:45 Dose: 17 gm Documented By: JANE Sodium Chloride (0.9 % Sodium Chloride Flush 3 Ml Syringe) 3 ml IVFLUSH QSHIFT [facility] Last Admin: 06/12/22 08:45 Dose: 3 ml Documented By: JANE Labs CBC & Chem 7: 06/08/22 06:05 06/08/22 06:05 Assessment and Plan (1) Acute blood loss anemia: Status: Acute (2) Brain mass: Status: Acute (3) Hip fracture: Status: Acute (4) Atrial fibrillation, new onset: Status: Acute Plan A 71 years old lady with PMH of CKD stage 3, HTN, malignant melanoma among others who presents to the hospital after sustaining a fall at home. Acute blood loss anemia Hemoglobin stable after 2 units transfusion Reported blood loss in surgery, developing hematoma in the right hip Restart Lovenox for DVT prophylaxis Discussed with orthopedic team, no intervention needed at this point Hip fracture, right Secondary to mechanical fall Pod 6 Orthopedic team following, start physical therapy Morphine for pain management PT eval Encephalopathy 2/2 Brain mass MRI reporting large up to 8 cm expansile mass with invasion of right cavernous sinus and other malignant features Seems an operable, HCP leading to word comfort measures but once the hip fixed for quality of life Continue dexamethasone per oncology team recommendations Oncology team input appreciated, Dexamethason, candidate for FRE[employer] CLAIM INVESTIGATOR\hospice plan for home hospice on 06/13/22 New onset AFib with RVR Rate controlled now echo showing normal LV function Continue small dose metoprolol to keep it under control not good candidate for AC due to brain mass KOLTON on CKD3 2/2 dehydration Stable kidney function, continue to monitor monitor BMP Hypokalemia resolved DVT PPX SCDs reason for continued hospitalization: plan for home hospice tomorrow Quality Stroke Does the patient have a stroke diagnosis?: No VTE Prior VTE?: No VTE Risk Level:: Medical - moderate - high VTE Device Contraindication: Treatment Not Indicated VTE Drug Contraindication: N/A - Med Ordered
[2022-06-12 11:50] VITALS: BP 176/84; PULSE 56; RESP 19; TEMP 36.4; O2SAT 98
[2022-06-12 15:40] VITALS: BP 151/84; PULSE 60; RESP 16; TEMP 36.6; O2SAT 97
[2022-06-12] MEDS: Enoxaparin Sodium 40 MG/0.4 ML SYRINGE SUBCUT (17:17)
[2022-06-12 20:00] VITALS: BP 163/76; PULSE 54; RESP 18; TEMP 36.5; O2SAT 97
[2022-06-13] VITALS: BP 164/82; PULSE 82; RESP 16; TEMP 36.7; O2SAT 96
[2022-06-13] MEDS: dexAMETHasone sod phosphate 4 MG/ML VIAL IVPUSH ×2 (00:28→05:25)
[2022-06-13 03:49] VITALS: BP 165/79; PULSE 52; RESP 18; TEMP 36.6; O2SAT 98
--- NOTE | 2022-06-13 06:40 | PC.NURSE ---
pt had 2x loose stools throughout the machinist 2nd shift, but has not voided. This nurse bladder scan the pt and had 137ml. MD Castellanos notified. No new orders were given. Will continue to monitor pt's urine output.
[2022-06-13 07:12] VITALS: BP 146/84; PULSE 54; RESP 18; TEMP 36.3; O2SAT 98
[2022-06-13] MEDS: amLODIPine Besylate 5 MG TABLET PO (08:31)
[2022-06-13] MEDS: polyethylene glycoL 3350 17 GM POWD.PACK PO (08:31)
[2022-06-13] MEDS: Metoprolol Tartrate 25 MG TABLET PO (08:31)
[2022-06-13] MEDS: 0.9 % Sodium Chloride Flush 3 ML SYRINGE IVFLUSH (08:31)
--- NOTE | 2022-06-13 09:53 | MHC.CM.PN ---
Addendum entered by Karol Sandra RN 06/13/22 11:36: TRANSPORT TIME CHANGED WITH [facility] TO 1430 PER HOSPICE REQUEST. HOSPICE TO INFORM SPOUSE, AND T/W INFORMED RN AND UNIT Original Note: PATIENT TO DC HOME WITH [facility] TO TRANSPORT FOR 1230 RN, UNIT, PATIENT, SPOUSE (IN ROOM) AWARE OF PLAN. IMM 06/12 IN CHART
[2022-06-13 11:07] VITALS: BP 134/69; PULSE 54; RESP 19; TEMP 36.6; O2SAT 97
== END 2022-06-13 15:39 | disposition home health service (06) | DRG 480 ==
LOC: HO.ED 16:44 → HO.EDOVER 17:42 → HO.S3 17:56
PROVIDERS: Emergency Medicine; Orthopaedic Surgery; Admitting Provider Student in an Organized Health Care Education/Training Program; Emergency Provider Emergency Medicine Emergency Medical Services; Visit Provider Internal Medicine
PROC: 0QS636Z Reposition Right Upper Femur with Intramedullary Internal Fixation Device, Percutaneous Approach (ICD-10-PCS; principal; 2022-06-06 15:20)
DX: S72.141A Displaced intertrochanteric fracture of right femur, initial encounter for closed fracture (principal); G93.41 Metabolic encephalopathy; C79.31 Secondary malignant neoplasm of brain; D62 Acute posthemorrhagic anemia; N17.9 Acute kidney failure, unspecified; W06.XXXA Fall from bed, initial encounter; I12.9 Hypertensive chronic kidney disease with stage 1 through stage 4 chronic kidney disease, or unspecified chronic kidney disease; N18.30 Chronic kidney disease, stage 3 unspecified; E86.0 Dehydration; E87.6 Hypokalemia; I48.91 Unspecified atrial fibrillation; Z20.822 Contact with and (suspected) exposure to COVID-19; Z87.891 Personal history of nicotine dependence; Z79.899 Other long term (current) drug therapy
CPT/HCPCS: 36415; 70450; 70553; 71250; 72125; 73502; 74176; 80048; 80076; 80307; 81001; 82077; 82140; 82550; 83605; 83735; 83880; 84439; 84443; 84484; 85025; 85027; 85610; 86850; 86900; 86901; 86923; 87040; 87635; 92526; 92610; 93005; 93306; 97140; 97162; 97166; 97530; 97535; 99285; A9585; C1713; C1758; C1769; J0690; J1100; J1170; J1650; J2250; J2270; J2405; J2795; J3010; P9016; Q9957

== ENCOUNTER → 2022-07-10 | Outpatient (RCR) | payer MEDICARE, SELFPAY ==
[2020-09-10 15:38] VITALS: BP 144/79; PULSE 72; RESP 12; TEMP 36.2; O2SAT 97; BMI 22.4
[2020-09-10 15:55] LABS: Basophils Percent Auto 0.6 % (0-2); Eosinophils Percent Auto 0.5 % (0-4); Hematocrit 37.6 % (37-47); Hemoglobin 12.7 g/dl (12.0-16.0); Imm Gran Abs Auto 0.09 X10*3/uL (0.00-0.03); Imm Gran Pct Auto 1.4 % (0.0-0.4); Lymphocytes Absolute Auto 2.8 X10*3/uL (1.2-4.9); Lymphocytes Percent Auto 41.6 % (20-40); MANUAL DIFF FLAG SCAN; Mean Corpuscular HGB Conc 33.8 g/dl (31.0-35.0); Mean Corpuscular Hemoglobin 28.5 pg (27.0-33.0); Mean Corpuscular Volume 84.5 fL (80-98); Mean Platelet Volume 9.9 fL (9.4-12.3); Monocytes Absolute Auto 2.1 X10*3/uL (0.1-1.2); Monocytes Percent Auto 31.3 % (2-11); Neutrophils Absolute Auto 1.6 X10*3/uL (2.0-8.3); Neutrophils Percent Auto 24.6 % (45-73); Platelet Count 177 X10*3/uL (160-400); Red Blood Count 4.45 X10*6/uL (4.20-5.50); Red Cell Distribution Width 11.9 % (11.0-16.0); SCAN SMEAR FLAG 1; White Blood Count 6.6 X10*3/uL (4.8-10.8)
--- NOTE | 2020-09-10 15:58 | PM.HEMONCPN ---
Medical Summary - Medical Summary Date of Service: 09/10/20 Chief complaint: Follow-up for: 1. Melanoma 2. Pulmonary nodules. Medical Summary: DIAGNOSIS: 1. MALIGNANT MELANOMA, RUE. TNM pT3aN0. 2. PULMONARY NODULES. CURRENT THERAPY: STATUS POST WIDE EXCISION. Interval History Interval history: This is a pleasant 69-year-old lady, here for a follow-up visit. She denies any recent changes in her medical history nor medications. She is doing quite well. She denies any changes to her skin. She follows with Dr. Ramos, from Dermatology. She denies any easy fatigability. She does her own housework even though she is legally blind. She denies chest pain or trouble breathing. No abdominal pain nausea vomiting heartburn indigestion. Her bowels are moving, without any gross blood in it. She enjoys a good appetite. Her weight is down. She has been staying home most of the time. They go out for a ride. Sometimes she brings her daughter out for lunch. She likes [employer] and [employer]. For her birthday she would like to go to [employer] She is in good spirits. Rest of the review of systems is unremarkable. Review of Systems - Constitutional Reports no additional constitutional complaints - Eyes Reports no additional eye complaints - ENT Reports no additional ear, nose, mouth, and throat complaints - Cardiovascular Reports no additional cardiovascular complaints - Respiratory Reports no additional respiratory complaints - Gastrointestinal Reports no additional gastrointestinal complaints - Genitourinary Reports no additional female genitourinary complaints - Musculoskeletal Reports no additional musculoskeletal complaints - Integumentary/Breasts Skin/Breast: Reports no additional skin complaints - Neurologic Reports no additional neurologic complaints - Psychiatric Reports no additional psychiatric complaints - Endocrine Reports no additional endocrine complaints - Hematologic/Lymphatic Reports no additional hematologic/lymphatic complaints - Allergic/Immunologic Reports no additional allergic/immunologic complaints [facility] Medical History: Medical History (Last Updated 09/03/20 @ 14:17 by Thuy Perez MD) CKD (chronic kidney disease), stage III Onset Date: ~09/03/20 Colonoscopy refused Constipation Eczema History of tobacco abuse HTN (hypertension) Mammogram declined Melanoma Vitamin D deficiency Functional capacity: independent ambulation Patient : No Family History: Family History (Last Updated 08/31/20 @ 08:54 by Ivone Booker, RMGregoria, [employer] MA[employer]TENA[employer] PERSON) Father HTN (hypertension) Cancer of prostate Mother HTN (hypertension) Son No problems noted. Daughter No problems noted. Surgical History: Surgical History (Last Updated 09/10/20 @ 15:40 by Alia Limon) Hx of breast surgery Social History: Social History (Last Updated 09/03/20 @ 13:28 by Cassi Castle [facility]) Alcohol History: Alcohol intake: never Nutrition Assessment: Patient : No Oncology Screenings - ECOG Performance Status ECOG Performance Status: 0 Home Medications and Allergies Home Medications Medication Instructions Recorded Confirmed Type cholecalciferol (vitamin D3) 1,250 1,250 mcg PO QWEEK 09/03/20 09/10/20 History mcg (50,000 unit) capsule lisinopril 5 mg tablet 5 mg PO DAILY 09/03/20 09/10/20 History Allergies Allergy/AdvReac Type Severity Reaction Status Date / Time No Known Allergies Allergy Verified 08/31/20 08:30 [No Known Allergies*] Exam Vital signs: Vital Signs Temp 97.2 F 09/10/20 15:38 Pulse 72 09/10/20 15:38 Resp 12 09/10/20 15:38 BP 144/79 H 09/10/20 15:38 Pulse Ox 97 09/10/20 15:38 Intake & Output 09/09/20 09/10/20 09/10/20 18:59 06:59 18:59 Other: Weight 65.1 kg [place] Weight in Grams 09332 Weight 65.1 kg Body Mass Index 22.4 - Constitutional Present: no acute distress - Routine HEENT Exam Head: Present: normal inspection Eye: Present: normal appearance ENT: Present: mucous membranes moist - Routine Neck Exam Present: full ROM - Routine Respiratory Exam Present: CTAB - Routine Cardiovascular Exam Cardiovascular: Present: RRR, S1, S2 - Routine Abdominal Exam Present: soft, nontender - Routine Rectal Exam Patient deferred: digital exam - Routine Extremities Exam Present: nontender - Routine Back/Spine/Pelvis Exam Back/Spine: Present: full ROM - Routine Skin Exam Present: intact - Routine Neurological Exam Present: alert, oriented X3 - Routine Psychiatric Exam Present: normal affect Data - Labs CBC & Chem 7: 09/10/20 15:48 09/10/20 15:48 Labs: Laboratory Last Values WBC 6.6 X10*3/uL (4.8-10.8) 09/10/20 15:48 RBC 4.45 X10*6/uL (4.20-5.50) 09/10/20 15:48 Hgb 12.7 g/dl (12.0-16.0) 09/10/20 15:48 Hct 37.6 % (37-47) 09/10/20 15:48 MCV 84.5 fL (80-98) 09/10/20 15:48 MCH 28.5 pg (27.0-33.0) 09/10/20 15:48 MCHC 33.8 g/dl (31.0-35.0) 09/10/20 15:48 RDW 11.9 % (11.0-16.0) 09/10/20 15:48 Plt Count 177 X10*3/uL (160-400) 09/10/20 15:48 MPV 9.9 fL (9.4-12.3) 09/10/20 15:48 Immature Gran % (Auto) 1.4 % (0.0-0.4) H 09/10/20 15:48 Neut % (Auto) 24.6 % (45-73) L 09/10/20 15:48 Lymph % (Auto) 41.6 % (20-40) H 09/10/20 15:48 [place] % (Auto) 31.3 % (2-11) H 09/10/20 15:48 Eos % (Auto) 0.5 % (0-4) 09/10/20 15:48 Baso % (Auto) 0.6 % (0-2) 09/10/20 15:48 Lymph # (Auto) 2.8 X10*3/uL (1.2-4.9) 09/10/20 15:48 [place] # (Auto) 2.1 X10*3/uL (0.1-1.2) H 09/10/20 15:48 Eos # (Auto) 0.0 X10*3/uL (0.0-0.4) 09/10/20 15:48 Baso # (Auto) 0.0 X10*3/uL (0.0-0.2) 09/10/20 15:48 Abs Immat Gran (auto) 0.09 X10*3/uL (0.00-0.03) H 09/10/20 15:48 Absolute Neuts (auto) 1.6 X10*3/uL (2.0-8.3) L 09/10/20 15:48 Absolute Nucleated RBC 0.000 X10*3/uL (0.0-0.012) 09/10/20 15:48 Nucleated RBC % (auto) 0.0 /100WBC (0.0-0.2) 09/10/20 15:48 Progress Note: A/P (1) Pulmonary nodules Status: Acute Assessment and plan: This is a pleasant 69 year-old lady, with recent diagnosis of Malignant Melanoma of her right upper extremity. She had a wide excision and sentinel lymph node biopsy on November [address] Garza. She had a 1.3 x 1 x 0.35 cm nodular melanoma. With Breslow Thickness: 3.6 mm. 0/2 sentinel nodes positive. Margins are wide. Stage IIa ( T3a, No, Mx.). B-DANYELL V600 mutation, was negative. I proceeded with further evaluation. l checked baseline labs including LDH. This was normal at 160. l proceeded with initial staging, and checked a CAT scan of the chest abdomen. This revealed liver lesions and lung lesions. She had an MRI of the abdomen on December 16 which revealed: 1. Findings consistent with two hepatic hemangiomata and a subcentimeter hepatic cyst. No MR evidence of metastatic disease. 2. No acute intra-abdominal abnormalities. 3. Atrophic left kidney. This is reassuring. The lung nodules are too small. An option was open biopsy by thoracic surgeon. I discussed this with the patient and her . She was not too keen on having more surgery done. The other option is to follow the the nodules with serial imaging. To consider biopsy if and when they enlarge. She was agreeable with that plan. CT chest from 09/01/19: Bilateral pulmonary nodules have been stable since 12/01/2018. No new pulmonary nodules. She is clinically doing well. This is reassuring. She is going to schedule her vaccine soon. She is already registered at [employer]. PLAN: Will re-stage with a chest CT now. She would like to wait another month or so till the weather improves. She will return in 6 months for a followup visit. All her questions were answered. Thank you, CC: Dr. Juhi Esparza. Dr. Geovanna Garza. Dr. RAMOS. Code Status FULL CODE Copies To: JUHI ESPARZA MD; MARYCRUZ RAMOS MD; GEOVANNA GARZA MD - Time Spent With Patient Total time spent is greater than 50% in coordination of care (as documented) at patient's floor/unit and/or counseling patient: 25 - 35 minutes
[2020-09-10 16:14] LABS: SLIDE REVIEW VERIFIED
--- NOTE | 2020-09-10 16:15 | MHC.HEMONCMA ---
Patient for follow up multiple pulmonary nodules. Patients history reviewed, labs drawn and patient to return in 6 months.
[2020-09-10 16:28] LABS: Alanine Aminotransferase 10 U/L (0-31); Alkaline Phosphatase 77 U/L (39-117); Anion Gap 12 (12-20); Aspartate Amino Transferase 16 U/L (5-31); Bilirubin Total 0.5 mg/dL (0.0-1.0); Blood Urea Nitrogen 22 mg/dL (9-16); Calcium 8.6 mg/dL (8.4-10.2); Carbon Dioxide 26 mmol/L (22-29); Chloride 106 mmol/L (96-108); Creatinine Clr Calc Pharmacy 36.6; Estimated Glomerular Filt Rate 37; Glucose Random 95 mg/dL (60-115); Potassium 3.4 mmol/L (3.3-5.1); Sodium 141 mmol/L (135-145); Total Protein 7.2 g/dL (6.5-8.0)
--- NOTE | 2021-04-04 09:17 | PM.HEMONCPN ---
Medical Summary - Medical Summary Date of Service: 04/04/21 Chief complaint: Follow-up for: Malignant melanoma. Medical Summary: DIAGNOSIS: 1. MALIGNANT MELANOMA, RUE. TNM pT3aN0. 2. PULMONARY NODULES. CURRENT THERAPY: STATUS POST WIDE EXCISION. Interval History Interval history: This is a pleasant 69-year-old lady, here for a follow-up visit. She is doing quite well. She denies any changes to her skin. Occasionally she gets some eczema involving her right middle finger. She recently had an appointment with Dermatology. Everything checked out fine. She has to go back in a year. She follows with Dr. Ramos. She denies any recent changes in her medical history nor medications. She denies any easy fatigability. She is very active. She does her own housework even though she is legally blind. She denies chest pain or trouble breathing. No abdominal pain nausea vomiting heartburn indigestion. Her bowels are moving, without any gross blood in it. She enjoys a good appetite. Her weight is down. She is in good spirits. Rest of the review of systems is unremarkable. She has been staying home most of the time. They go out for a ride. Sometimes she brings her daughter out for lunch. She likes [employer] and [employer]. For her birthday she would like to go to [place]. Review of Systems - Constitutional Reports no additional constitutional complaints, Denies lack of energy, Denies malaise, Denies night sweats, Denies poor appetite - Eyes Reports no additional eye complaints - ENT Reports no additional ear, nose, mouth, and throat complaints - Cardiovascular Reports no additional cardiovascular complaints - Respiratory Reports no additional respiratory complaints - Gastrointestinal Reports no additional gastrointestinal complaints - Genitourinary Reports no additional female genitourinary complaints - Musculoskeletal Reports no additional musculoskeletal complaints - Integumentary/Breasts Skin/Breast: Reports no additional skin complaints - Neurologic Reports no additional neurologic complaints - Psychiatric Reports no additional psychiatric complaints - Endocrine Reports no additional endocrine complaints - Hematologic/Lymphatic Reports no additional hematologic/lymphatic complaints - Allergic/Immunologic Reports no additional allergic/immunologic complaints [facility] Medical History: Medical History (Last Reviewed 04/04/21 @ 09:40 by Ben Sanchez) CKD (chronic kidney disease), stage III Onset Date: ~09/03/20 Colonoscopy refused Constipation Eczema History of tobacco abuse HTN (hypertension) Mammogram declined Melanoma Vitamin D deficiency Functional capacity: independent ambulation Patient : No Family History: Family History (Last Reviewed 04/04/21 @ 09:40 by Ben Sanchez) Father HTN (hypertension) Cancer of prostate Mother HTN (hypertension) Son No problems noted. Daughter No problems noted. Surgical History: Surgical History (Last Reviewed 04/04/21 @ 09:40 by Ben Sanchez) Hx of breast surgery Social History: Social History (Last Reviewed 04/04/21 @ 09:40 by Ben Sanchez) Alcohol History: Alcohol intake: never Nutrition Assessment: Patient : No Oncology Screenings - ECOG Performance Status ECOG Performance Status: 0 Home Medications and Allergies Home Medications Medication Instructions Recorded Confirmed Type cholecalciferol (vitamin D3) 1,250 1,250 mcg PO QWEEK 09/03/20 04/04/21 History mcg (50,000 unit) capsule lisinopril 5 mg tablet 5 mg PO DAILY 09/03/20 04/04/21 History Allergies Allergy/AdvReac Type Severity Reaction Status Date / Time No Known Allergies Allergy Verified 01/10/21 13:25 [No Known Allergies*] Exam Vital signs: Vital Signs Temp 97.2 F 09/10/20 15:38 Pulse 72 09/10/20 15:38 Resp 12 09/10/20 15:38 BP 144/79 H 09/10/20 15:38 Pulse Ox 97 09/10/20 15:38 Weight 65.1 kg Body Mass Index 22.4 - Constitutional Present: no acute distress - Routine HEENT Exam Head: Present: normal inspection Eye: Present: normal appearance ENT: Present: mucous membranes moist - Routine Neck Exam Present: full ROM - Routine Respiratory Exam Present: CTAB - Routine Cardiovascular Exam Cardiovascular: Present: RRR, S1, S2 - Routine Abdominal Exam Present: soft, nontender - Routine Rectal Exam Patient deferred: digital exam - Routine Extremities Exam Present: nontender - Routine Back/Spine/Pelvis Exam Back/Spine: Present: full ROM - Routine Skin Exam Present: intact - Routine Neurological Exam Present: alert, oriented X3 - Routine Psychiatric Exam Present: normal affect Data - Labs CBC & Chem 7: 04/04/21 09:25 04/04/21 09:25 Labs: Laboratory Last Values WBC 6.6 X10*3/uL (4.8-10.8) 09/10/20 15:48 RBC 4.45 X10*6/uL (4.20-5.50) 09/10/20 15:48 Hgb 12.7 g/dl (12.0-16.0) 09/10/20 15:48 Hct 37.6 % (37-47) 09/10/20 15:48 MCV 84.5 fL (80-98) 09/10/20 15:48 MCH 28.5 pg (27.0-33.0) 09/10/20 15:48 MCHC 33.8 g/dl (31.0-35.0) 09/10/20 15:48 RDW 11.9 % (11.0-16.0) 09/10/20 15:48 Plt Count 177 X10*3/uL (160-400) 09/10/20 15:48 MPV 9.9 fL (9.4-12.3) 09/10/20 15:48 Immature Gran % (Auto) 1.4 % (0.0-0.4) H 09/10/20 15:48 Neut % (Auto) 24.6 % (45-73) L 09/10/20 15:48 Lymph % (Auto) 41.6 % (20-40) H 09/10/20 15:48 [place] % (Auto) 31.3 % (2-11) H 09/10/20 15:48 Eos % (Auto) 0.5 % (0-4) 09/10/20 15:48 Baso % (Auto) 0.6 % (0-2) 09/10/20 15:48 Lymph # (Auto) 2.8 X10*3/uL (1.2-4.9) 09/10/20 15:48 [place] # (Auto) 2.1 X10*3/uL (0.1-1.2) H 09/10/20 15:48 Eos # (Auto) 0.0 X10*3/uL (0.0-0.4) 09/10/20 15:48 Baso # (Auto) 0.0 X10*3/uL (0.0-0.2) 09/10/20 15:48 Abs Immat Gran (auto) 0.09 X10*3/uL (0.00-0.03) H 09/10/20 15:48 Absolute Neuts (auto) 1.6 X10*3/uL (2.0-8.3) L 09/10/20 15:48 Absolute Nucleated RBC 0.000 X10*3/uL (0.0-0.012) 09/10/20 15:48 Nucleated RBC % (auto) 0.0 /100WBC (0.0-0.2) 09/10/20 15:48 Assessment and Plan Patient Active problem list reviewed?: Yes (1) Pulmonary nodules Status: Acute Assessment and plan: This is a pleasant 69 year-old lady, This is reassuring. The lung nodules are too small. An option was open biopsy by thoracic surgeon. I discussed this with the patient and her . She was not too keen on having more surgery done. The other option is to follow the the nodules with serial imaging. To consider biopsy if and when they enlarge. She was agreeable with that plan. CT chest from 09/01/19: Bilateral pulmonary nodules have been stable since 12/01/2018. No new pulmonary nodules. She is clinically doing very well. This is reassuring. She had her vaccine. Her labs are in order. CT scan of the chest from September revealed: Stable small pulmonary nodules. PLAN: Will re-stage with a chest CT next September. She will return in 6 months for a followup visit. She will be seeing the hot kettle tender next year. All her questions were answered. Thank you, CC: Dr. Juhi Ba. Dr. RAMOS. (2) Malignant melanoma Status: Acute Assessment and plan: This is a pleasant 70-year-old lady with recent diagnosis of Malignant Melanoma of her right upper extremity. She had a wide excision and sentinel lymph node biopsy on November [address] Garza. She had a 1.3 x 1 x 0.35 cm nodular melanoma. With Breslow Thickness: 3.6 mm. 0/2 sentinel nodes positive. Margins are wide. Stage IIa ( T3a, No, Mx.). B-DANYELL V600 mutation, was negative. I proceeded with further evaluation. l checked baseline labs including LDH. This was normal at 160. l proceeded with initial staging, and checked a CAT scan of the chest abdomen. This revealed liver lesions and lung lesions. She had an MRI of the abdomen on December 16 which revealed: 1. Findings consistent with two hepatic hemangiomata and a subcentimeter hepatic cyst. No MR evidence of metastatic disease. 2. No acute intra-abdominal abnormalities. 3. Atrophic left kidney. She is clinically doing well. Evidence for disease recurrence. LDH is 188. PLAN: She saw the hot kettle tender. She got a clear bill of health. She will be going back in 6 months for a follow-up visit. Thank you, - Time Spent With Patient Time Spent with Patient (in minutes): 25
[2021-04-04 09:35] LABS: Basophils Percent Auto 0.6 % (0-2); Eosinophils Percent Auto 0.6 % (0-4); Hemoglobin 12.9 g/dl (12.0-16.0); Imm Gran Abs Auto 0.08 X10*3/uL (0.00-0.03); Imm Gran Pct Auto 1.2 % (0.0-0.4); Lymphocytes Absolute Auto 2.3 X10*3/uL (1.2-4.9); Lymphocytes Percent Auto 33.3 % (20-40); MANUAL DIFF FLAG SCAN; Mean Corpuscular HGB Conc 34.9 g/dl (31.0-35.0); Mean Corpuscular Hemoglobin 28.9 pg (27.0-33.0); Mean Platelet Volume 9.4 fL (9.4-12.3); Monocytes Absolute Auto 2.7 X10*3/uL (0.1-1.2); Monocytes Percent Auto 39.7 % (2-11); Neutrophils Absolute Auto 1.7 X10*3/uL (2.0-8.3); Neutrophils Percent Auto 24.6 % (45-73); Platelet Count 179 X10*3/uL (160-400); Red Blood Count 4.46 X10*6/uL (4.20-5.50); Red Cell Distribution Width 11.9 % (11.0-16.0); SCAN SMEAR FLAG 1; White Blood Count 6.9 X10*3/uL (4.8-10.8)
[2021-04-04 09:39] VITALS: BP 139/80; PULSE 92; RESP 16; TEMP 36; O2SAT 92; BMI 23.9
[2021-04-04 09:53] LABS: Alanine Aminotransferase 17 U/L (0-31); Albumin Level 4.1 g/dL (3.5-5.0); Alkaline Phosphatase 83 U/L (39-117); Anion Gap 10 (12-20); Aspartate Amino Transferase 27 U/L (5-31); Bilirubin Total 0.7 mg/dL (0.0-1.0); Blood Urea Nitrogen 24 mg/dL (9-16); Carbon Dioxide 27 mmol/L (22-29); Chloride 107 mmol/L (96-108); Creatinine Clr Calc Pharmacy 29.9; Estimated Glomerular Filt Rate 30; Glucose Random 95 mg/dL (60-115); Lactate Dehydrogenase 188 U/L (122-220); Potassium 3.9 mmol/L (3.3-5.1); Sodium 140 mmol/L (135-145); Total Protein 7.4 g/dL (6.5-8.0)
[2021-04-04 10:10] LABS: SLIDE REVIEW VERIFIED
--- NOTE | 2021-04-04 11:52 | MHC.HEMONCMA ---
pt came in for onc f/u and states they are doing well. Clinical summary was updated and labs were drawn. pt will be in 1 year on 04/04/2022 for f/u apt.
--- NOTE | 2022-07-07 14:32 | MHC.HEMONC ---
Received call from Rosalba at [facility]-states pt needs another prescription for liquid ativan and haldol. Dr Gaytan notified-script sent to Suzanne on [facility] in [place]
--- NOTE | 2022-07-11 09:56 | MHC.HEMONC ---
[facility] CALLED to INFORM DR BEE THAT PT ON 07/10/23.
== END | disposition home or self-care (01) ==
LOC: HO.ONC 09-10 15:24
PROVIDERS: PCP Internal Medicine; Visit Provider Internal Medicine Medical Oncology
DX: Z85.820 Personal history of malignant melanoma of skin (principal); R91.8 Other nonspecific abnormal finding of lung field
CPT/HCPCS: 36415; 80053; 83615; 85025; 99214